=== PATIENT | female | born 1940 | race Caucasian/White ===

== ENCOUNTER 2025-05-26 14:13 | Inpatient (IN) ==
--- NOTE | 2025-05-26 14:38 | Emergency Department Note ---
History of Present Illness General Chief complaint: Infection Stated complaint: SEVERE INFECTED LT FOOT Time Seen by Provider: 05/26/25 14:19 History of Present Illness Maximum Pain Intensity: 7 This is an 84-year-old female that presents to the emergency department via private vehicle with complaints of "left foot/ankle infection". The patient notes that she began with redness to the left foot a few weeks ago. Since then has developed an ulceration to the left medial ankle and dorsal aspect of the left second toe. No trauma. No injury. She notes she did bump the left fifth toe against an object but that did not cause the other findings. She denies any fevers, chills, nausea or vomiting. She does not feel ill. She has neuropathy at baseline she notes in the lower extremities. She notes history of diabetes. She is not currently on antibiotics. Home Medications Medication Instructions Recorded Confirmed Type aspirin 81 mg tablet,delayed 81 mg PO DAILY 05/26/25 05/26/25 History release atenolol 100 mg tablet 100 mg PO DAILY 05/26/25 05/26/25 History atorvastatin 40 mg tablet 40 mg PO HS 05/26/25 05/26/25 History benazepril 40 mg tablet 40 mg PO DAILY 05/26/25 05/26/25 History cholestyramine (with sugar) 4 gram 1 ea PO BID 05/26/25 05/26/25 History powder for susp in a packet glimepiride 4 mg tablet 4 mg PO DAILYBB 05/26/25 05/26/25 History hydrochlorothiazide 25 mg tablet 25 mg PO DAILY 05/26/25 05/26/25 History levothyroxine 75 mcg tablet 75 mcg PO DAILYBB 05/26/25 05/26/25 History metformin 500 mg tablet,extended 1,000 mg PO BID 05/26/25 05/26/25 History release 24 hr multivitamin 1 tab PO DAILY 05/26/25 05/26/25 History vit C 250 mg-vit E 90 mg-zinc 40 1 tab PO BID 05/26/25 05/26/25 History mg-copper 1 [id number] capsule (PreserVision AREDS-2) Allergies Allergy/AdvReac Type Severity Reaction Status Date / Time No Known Allergies Allergy Unknown Verified 05/26/25 16:00 Past Med/Surg History Problem List (Updated 05/26/25 @ 17:12 by Ankit Araiza PA-C) Cellulitis of left lower extremity (Acute) Medical History (Updated 05/26/25 @ 17:12 by Ankit Araiza PA-C) Hypothyroidism Mitral valve stenosis Lumbar stenosis with neurogenic claudication Diabetic retinopathy Diabetic neuropathy Primary hyperparathyroidism T2DM (type 2 diabetes mellitus) HLD (hyperlipidemia) HTN (hypertension) Surgical History (Updated 05/26/25 @ 16:37 by Adela Santamaria PA-C) Hx of tonsillectomy Hx of appendectomy Hx of parathyroidectomy R superior History of partial colectomy R hemicolectomy with ileocolic anastomosis Hx of spinal fusion Hx of endoscopic retrograde cholangiopancreatography Hx of cataract extraction Hx of cholecystectomy 04/2024 lap converted to open 2/2 serosal tear of stomach Family History (Updated 05/26/25 @ 16:39 by Adela Santamaria PA-C) Mother Colorectal cancer Diabetes Father Colorectal cancer Sister Cancer lymphoma Sister Myocardial infarction Sister Rheumatoid arthritis Social History Smoking Status: Former smoker Preferred Language: [place] Feels Safe at Home: Yes Review of Systems A total of 10 systems reviewed and were otherwise negative Physical Exam Vital Signs Vital Signs - 24 hr 05/26/25 14:15 05/26/25 14:33 05/26/25 14:33 Temperature 36.6 C Temperature Source Oral Pulse Rate 66 64 Pulse Rate [Right Finger] 60 Pulse Rhythm [Right Finger] Regular Pulse Strength [Right Finger] Normal Respiratory Rate 18 17 Respiratory Effort / Characteristics Non-Labored Spontaneous Non-Labored Respiratory Depth Normal Normal Respiratory Pattern Regular Regular Blood Pressure 189/74 H Blood Pressure [Right Arm] 158/65 H Blood Pressure Mean 112 Blood Pressure Mean [Right Arm] 96 Blood Pressure Position [Right Arm] Lying Pulse Oximetry 97 100 Oxygen Delivery Method Room Air Room Air Sepsis Recent Fever Within 48 Hours No Sepsis New/Unexplained Change in Mental Status N/A Sepsis Action Taken by Nursing No Action Required 05/26/25 16:00 Temperature Temperature Source Pulse Rate Pulse Rate [Right Finger] 58 L Pulse Rhythm [Right Finger] Pulse Strength [Right Finger] Respiratory Rate 14 Respiratory Effort / Characteristics Respiratory Depth Respiratory Pattern Blood Pressure Blood Pressure [Right Arm] 145/85 H Blood Pressure Mean Blood Pressure Mean [Right Arm] 105 Blood Pressure Position [Right Arm] Pulse Oximetry 97 Oxygen Delivery Method Room Air Sepsis Recent Fever Within 48 Hours Sepsis New/Unexplained Change in Mental Status Sepsis Action Taken by Nursing VITAL SIGNS - Vital signs and nursing notes were reviewed. Stable and afebrile. GENERAL -84-year-old female appearing her stated age who is in no acute distress. Communicates well with provider and answers questions appropriately. SKIN -diffuse circumferential erythema and edema to the left foot and left ankle region, more pronounced on the medial aspect. Small subcentimeter ulceration to the left medial ankle and left dorsal second toe. Small amount of yellowish purulence at the left medial ankle joint at the ulceration site. No lymphangitic streaking. HEAD - NC/AT. EYES - Sclera anicteric. NECK - No nuchal rigidity. LUNGS - CTA CARDIAC - RRR EXTREMITIES - No clubbing or peripheral cyanosis. Skin as above. Left lower extremity with erythema and edema as described above. Left dorsalis pedis pulse within normal limits. Cap refill within normal limits. Calf is soft and nontender. No crepitus. +5/5 strength noted in UE/LE bilaterally. NEUROLOGIC - Cranial nerves II through XII grossly intact. Decree sensation of the left foot which the patient notes is chronic PSYCH -alert, oriented and pleasant on exam Course Administered Medications Vancomycin HCl 1,250 mg/ (Sodium Chloride) 525 mls @ 200 mls/hr IV NOW ONE Stop: 05/26/25 18:12 Last Admin: 05/26/25 16:13 Dose: 200 mls/hr Documented By: ZHENG Discontinued Medications Cefepime HCl (Maxipime 2000mg) 2,000 mg in 20 mls @ 5 mls/min IV NOW STA; Protocol Stop: 05/26/25 14:36 Last Admin: 05/26/25 15:07 Dose: 5 mls/min Documented By: CHRISTIAN Metronidazole (Flagyl) 500 mg in 100 mls @ 100 mls/hr IV NOW STA; Protocol Stop: 05/26/25 15:32 Last Admin: 05/26/25 15:07 Dose: 100 mls/hr Documented By: CHRISTIAN Medical Decision Making Laboratory Data 05/26/25 14:32 05/26/25 14:32 Lab Results 05/26/25 05/26/25 Range/Units 14:32 16:35 WBC 5.82 (4.8-10.8) K/ul RBC 2.73 L (4.20-5.40) M/uL Hgb 9.6 L (12.0-16.0) g/dl Hct 29.2 L (37.0-47.0) % MCV 107.0 H (80.0-100.0) fL MCH 35.2 H (25.0-34.0) pg MCHC 32.9 (32.0-36.0) g/dL RDW Std Deviation 59.8 H (36.4-46.3) fL RDW Coeff of Lynda 15.5 H (11.5-14.5) % Plt Count 253 (130-400) K/uL MPV 10.3 (9.4-12.4) fL Neutrophils % (Manual) 14 % Lymphocytes % (Manual) 18 % Monocytes % (Manual) 7 % Eosinophils % (Manual) 2 % Neutrophils # (Manual) 0.81 L (1.40-6.50) K/uL Total Absolute Neuts 0.81 L* (1.4-6.5) K/uL Lymphocytes # (Manual) 1.05 L (1.2-3.4) K/uL Total Abs Lymphocytes 4.48 H (1.2-3.4) K/uL Monocytes # (Manual) 0.41 (0.11-0.59) K/uL Eosinophils # (Manual) 0.12 (0-0.50) K/uL Large Granular Lymphs 59 % # Lrg Granular Lymphs 3.43 K/uL RBC Morphology Unremarkable Sodium 141 (136-145) mmol/L Potassium 3.8 (3.5-5.1) mmol/L Chloride 107 (98-107) mmol/L Carbon Dioxide 25 (21-32) mmol/L Anion Gap 9 (3-11) BUN 28 H (6-23) mg/dl Creatinine 0.84 (0.6-1.2) mg/dl Est Cr Clr Drug Dosing 48.5 ml/min eGFR 68.48 BUN/Creatinine Ratio 33.3 H (10-20) Glucose 190 H (70-99(Fasting)) mg/dl Lactate 1.5 (0.4-2.0) mmol/L Calcium 10.7 H (8.6-10.3) mg/dl Ionized Calcium 1.44 H (1.12-1.32) mmol/L Iron 98 (35-150) mcg/dl TIBC 336 (250-450) mcg/dl Transferrin 240 (200-360) mg/dl Transferrin % Sat 29 (15-50) % Total Bilirubin 0.6 (0.2-1.0) mg/dl AST 13 (13-39) U/L ALT 16 (7-52) U/L Alkaline Phosphatase 78 (34-104) U/L C-Reactive Protein < 0.50 (0-0.5) mg/dl Total Protein 7.0 (6.0-8.3) gm/dl Albumin 4.5 (3.4-5.0) gm/dl Globulin 2.5 (2.5-4.0) gm/dl Albumin/Globulin Ratio 1.8 (0.9-2) Procalcitonin 0.02 (0-0.5) ng/ml Imaging Data Radiologist's Impression: Foot X-Ray 05/26/25 14:29 Study: Left ankle and left foot 3 views History: Pain Comparison: None Findings: There is no acute fracture or dislocation. Alignment is anatomic. Joint spaces are well maintained. Swelling and mild soft tissue irregularity about the medial aspect of the ankle compatible with known ulcer. Bone mineralization is decreased. Impression: No acute bony abnormality Electronically signed by Ilia Ortega 05-26-2025 4:35 PM Ankle X-Ray 05/26/25 14:34 Study: Left ankle and left foot 3 views History: Pain Comparison: None Findings: There is no acute fracture or dislocation. Alignment is anatomic. Joint spaces are well maintained. Swelling and mild soft tissue irregularity about the medial aspect of the ankle compatible with known ulcer. Bone mineralization is decreased. Impression: No acute bony abnormality Electronically signed by Ilia Ortega 05-26-2025 4:35 PM MDM Narrative Patient was seen and evaluated as above in room B11. Review was performed of triage nursing notes and vital signs. After obtaining a thorough history and physical examination the above work up was performed. Patient presents to us today for evaluation of ongoing left foot and ankle erythema and edema. There are 2 ulcerative sites noted, 1 of which is at the left medial ankle and the second is on the left dorsal toe. This is concerning for infection. Options of care were discussed with the patient. IV access was established. Labs were drawn. I did order broad-spectrum antibiotic coverage to include IV cefepime, IV metronidazole and IV vancomycin for this patient noting comorbidities and findings today on exam/history. Labs reveal no leukocytosis. there is anemia with hemoglobin at 9.6. There is total absolute neutrophils low at 0.81. Metabolic panel reveals mild ovation of BUN at 28, creatinine of 0.84. Hyperglycemia 190. Hypercalcemia 10.7, similar to previous. Lactate and procalcitonin are normal making sepsis less likely. Left ankle and foot x-rays were reviewed as well as the radiology reports as above. I agree with the findings. No acute findings. I do believe that further evaluation and management in the inpatient setting is warranted. Blood culture pending and wound culture pending. Case discussed with the hospitalist service. Please refer to further documentation regarding her stay. In the evaluation and treatment of this patient the following differential diagnoses were entertained: Necrotizing fasciitis, cellulitis, abscess, osteomyelitis, among others Impression & Plan Cellulitis of left lower extremity Discharge Plan Visit Data Chief Complaint: Infection Stated Complaint: SEVERE INFECTED LT FOOT ED Provider: Andi Dalal ED Midlevel Provider: Ankit Araiza Discharge Problem: Cellulitis of left lower extremity Patient Disposition: Admitted As Inpatient Condition: Good Forms Stand Alone Forms: [facility] [employer] Prescriptions Prescriptions: No Action multivitamin [Daily Multivitamin] Tablet 1 tab PO DAILY atorvastatin 40 mg tablet 40 mg PO HS atenolol 100 mg tablet 100 mg PO DAILY aspirin 81 mg Tablet,Delayed Release (Dr/Ec) 81 mg PO DAILY levothyroxine 75 mcg tablet 75 mcg PO DAILYBB glimepiride 4 mg tablet 4 mg PO DAILYBB hydrochlorothiazide 25 mg tablet 25 mg PO DAILY benazepril 40 mg tablet 40 mg PO DAILY metformin 500 mg tablet extended release 24 hr 1,000 mg PO BID cholestyramine (with sugar) 4 gram powder in packet 1 ea PO BID Rx Instructions: PER PT "NEVER STARTED, WAS SICK WHEN GIVEN THE SCRIPT, JUST NEVER STARTED". PreserVision AREDS-2 250-90-40-1 mg Capsule 1 tab PO BID Referrals Referrals: Holly Spence DO [Primary Care Provider] -
[2025-05-26 15:05] LABS: Hematocrit (blood only) 29.2 % (37.0-47.0); Hemoglobin 9.6 g/dl (12.0-16.0); Mean Corpuscular Hemoglobin 35.2 pg (25.0-34.0); Mean Corpuscular Volume 107.0 fL (80.0-100.0); Platelet Count 253 K/uL (130-400); RDW Standard Deviation 59.8 fL (36.4-46.3); Red Blood Count 2.73 M/uL (4.20-5.40); White Blood Count 5.82 K/ul (4.8-10.8)
[2025-05-26] MEDS: CEFEPIME 2000MG 2,000 MG/20 ML SYR IV STA (15:07)
[2025-05-26] MEDS: metroNIDAZOLE 500 MG/100 ML BAG IV STA (15:07)
[2025-05-26 15:25] LABS: Alanine Aminotransferase 16 U/L (7-52); Albumin Globulin Ratio 1.8 (0.9-2); Alkaline Phosphatase 78 U/L (34-104); Anion Gap 9 (3-11); Bilirubin,Total 0.6 mg/dl (0.2-1.0); Blood Urea Nitrogen 28 mg/dl (6-23); Calcium 10.7 mg/dl (8.6-10.3); Carbon Dioxide 25 mmol/L (21-32); Chloride 107 mmol/L (98-107); Creatinine Clr Calc Pharmacy 48.5 ml/min; Globulin 2.5 gm/dl (2.5-4.0); Glucose 190 mg/dl (70-99(Fasting)); Potassium 3.8 mmol/L (3.5-5.1); Sodium 141 mmol/L (136-145); Total Protein 7.0 gm/dl (6.0-8.3)
[2025-05-26] MEDS ORDERED: VANCOMYCIN CONSULT ACTIVE PRN (15:35)
[2025-05-26 15:45] LABS: ALC (manual) 4.48 K/uL (1.2-3.4); ANC (manual) 0.81 K/uL (1.4-6.5); Large Granular Lymph # (manua 3.43 K/uL; Large Granular Lymph % (manual) 59 %; RBC Morphology Unremarkable
--- NOTE | 2025-05-26 16:01 | History & Physical Report ---
Date of Service May 26, 2025 Assessment & Plan (1) Cellulitis of left lower extremity: (2) T2DM (type 2 diabetes mellitus): (3) Diabetic neuropathy: (4) HTN (hypertension): (5) Primary hyperparathyroidism: (6) HLD (hyperlipidemia): (7) Anemia: (8) Neutropenia: Plan This is an 84-year-old female with significant past medical history of T2DM, diabetic peripheral neuropathy, HTN, HLD, hypothyroidism, primary hyperparathyroidism, diabetic nonproliferative retinopathy, mild mitral valve stenosis, lumbar spinal stenosis who presents to ED secondary to multiple non healing L foot wounds with associated redness. 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 Medrano - spoke to provider at bedside, likely cellulitis, no surgical debridement necessary, highly suspicious of charcot arthropathy consult wound nurse for treatment/follow up MRSA swab if negative no indication for mrsa coverage given low risk obtain Vascular Arterial duplex #Anemia, chronic Pt has been anemia since March of 2024 per epic review, lows of 8 after acute gallbladder surgery currently 9.6 and 29.2 anemia panel including iron profile, b12, folate unremarkable obtain retic ct, haptoglobin, tsh/t4, LDH w/ am labs peripheral smear pending will likely need hematology referral as outpt, pt reports chronic fatigue, denies s/sx of bleeding, last c scope was 4 years ago, pt continues to receive them due to strong family hx #Neutropenia pt with absolute neutrophil count low, present since 05/2024 post gallbladder surgery obtain peripheral smear pt likely to need hematology referral as outpt #T2DM with neuropathy, retinopathy controlled for age, last a1c 7.7 in January, will update a1c in a.m. lantus/novolog per protocol hold metformin, glimepiride #HTN chronic, stable continue atenolol and benazpril hold HCTZ for now given hypercalc and known primary hyperparathyroidism pt previously follow endo in [place] who recommended discontinuing hctz, pt reports re suming it due to some lower ext edema #Hypercalcemia #Primary Hyperparathyroidism with hx of R superior parathyroidectomy in 2007 had follow [facility] at [place], last seen in 2019, recommend re stablishing for monitoring of calcium levels avoid calcium supplements which can also be found in daily MVI #Chronic diarrhea: felt 2/2 hx of R hemicolectomy as well as last years gallbladder surgery, bowels always loose, was recently prescribe cholestyramine but didn't start yet #DVT ppx: SQ Lovenox FULL CODE PCP: Holly Spence DO Dispo: admit to med tele, likely can downgrade to medical in a.m. Pt was seen and examined in collaboration with Dr. Liu, please see addendum I spent a total of 76 minutes coordinating, documenting and providing care for this patient excluding time spent in the performance of separately billed services or time spent by another provider/QHP. History of Present Illness Chief Complaint: L foot wounds Primary Care Provider: Holly Spence DO This is an 84-year-old female with significant past medical history of T2DM, diabetic peripheral neuropathy, HTN, HLD, hypothyroidism, primary hyperparathyroidism, diabetic nonproliferative retinopathy, mild mitral valve stenosis, lumbar spinal stenosis who presents to ED secondary to L foot wounds for several weeks. History obtained from patient and at bedside. Patient reports having multiple wounds To her left foot, some which have healed, others which remain present. She reports having significant pain to her left foot and leg to the point she is unable to sleep at night. She does have known underlying neuropathy for which she has tried gabapentin before. She does not like the way most medications make her feel and therefore she tries to avoid it. She has been using [id number] Tylenol with minimal relief. Over the last several days she has noticed increased redness to her bilateral legs and feet, left greater than right. Her son is in sports medicine and encouraged her to be seen in the ED. In ED patient remained hemodynamically stable. She has multiple wounds to left ankle and digits approximately 4 in different stages of healing. She remained hemodynamically stable without signs of sepsis. She is neutropenic with an absolute neutrophil count of 0.8 1 K/uL. she remains anemic with a hemoglobin and hematocrit of 9.6 and 29.2. She does have mildly elevated calcium at 10.7 with an ionized calcium of 1.44. She had bilateral ankle x-rays which were normal. Blood and wound cultures were obtained. Foot and ankle x- rays were obtained and unremarkable. In ED she received IV Vanco, Flagyl and cefepime. Of significant pt had prolonged stay at [facility] May of 2024 2/2 acute cholecystitis with c/f choledocholithiasis. She underwent an ERCP 05/08/24 and required a lap converted to open cholecystectomy on 05/10 with oversewing of a serosal tear of the stomach. She had post op complication with ileus. Allergies Allergy/AdvReac Type Severity Reaction Status Date / Time No Known Allergies Allergy Unknown Verified 05/26/25 16:00 Home Medications Medication Instructions Recorded Confirmed Type aspirin 81 mg tablet,delayed 81 mg PO DAILY 05/26/25 05/26/25 History release atenolol 100 mg tablet 100 mg PO DAILY 05/26/25 05/26/25 History atorvastatin 40 mg tablet 40 mg PO HS 05/26/25 05/26/25 History benazepril 40 mg tablet 40 mg PO DAILY 05/26/25 05/26/25 History cholestyramine (with sugar) 4 gram 1 ea PO BID 05/26/25 05/26/25 History powder for susp in a packet glimepiride 4 mg tablet 4 mg PO DAILYBB 05/26/25 05/26/25 History hydrochlorothiazide 25 mg tablet 25 mg PO DAILY 05/26/25 05/26/25 History levothyroxine 75 mcg tablet 75 mcg PO DAILYBB 05/26/25 05/26/25 History metformin 500 mg tablet,extended 1,000 mg PO BID 05/26/25 05/26/25 History release 24 hr multivitamin 1 tab PO DAILY 05/26/25 05/26/25 History vit C 250 mg-vit E 90 mg-zinc 40 1 tab PO BID 05/26/25 05/26/25 History mg-copper 1 [id number] capsule (PreserVision AREDS-2) Past Med/Surg History Problem List (Updated 05/26/25 @ 18:00 by Kamari Medrano DO) Charcot arthropathy Neutropenia Anemia Cellulitis of left lower extremity (Acute) Medical History (Updated 05/26/25 @ 18:00 by Kamari Medrano DO) Hypothyroidism Mitral valve stenosis Lumbar stenosis with neurogenic claudication Diabetic retinopathy Diabetic neuropathy Primary hyperparathyroidism T2DM (type 2 diabetes mellitus) HLD (hyperlipidemia) HTN (hypertension) Surgical History (Updated 05/26/25 @ 16:37 by Adela Santamaria PA-C) Hx of tonsillectomy Hx of appendectomy Hx of parathyroidectomy R superior History of partial colectomy R hemicolectomy with ileocolic anastomosis Hx of spinal fusion Hx of endoscopic retrograde cholangiopancreatography Hx of cataract extraction Hx of cholecystectomy 04/2024 lap converted to open 2/2 serosal tear of stomach Family History (Updated 05/26/25 @ 16:39 by Adela Santamaria PA-C) Mother Colorectal cancer Diabetes Father Colorectal cancer Sister Cancer lymphoma Sister Myocardial infarction Sister Rheumatoid arthritis Social History Smoking Status: Former smoker Tobacco Type: Cigarettes Second Hand Exposure: No; Do You Dip or Chew Tobacco: No; Tobacco Cessation Education Requested by Patient: No Hx Alcohol Use: No Hx Substance Use: No Preferred Language: Djiboutian Communication Ability: Effective Quality System Manager Required: No Beliefs That Will Affect Care: None Current Living Situation: Spouse Current Living Situation Comment: lives at home with Other Information That Helps Us Care for You: No Feels Safe at Home: Yes Safety Concerns: Feels Safe At This Time Assistive Devices: Cane and Glasses Assistive Devices Comment: cane/glasses Review of Systems Review of Systems: All systems reviewed & are unremarkable except as noted in HPI & below Physical Exam Physical Exam: constitutional: WD/WN, vitals as above, NAD, sitting up in bed, pleasant, conversing easily Head: Normocephalic, Atraumatic Eyes: conjunctivae normal, anicteric sclerae ENMT: external ear and nose normal, oropharynx normal Neck: trachea midline, no thyromegaly normal visual inspection Respiratory: normal respiratory effort, lungs clear to auscultation, no wheeze, rales, rhonchi. Normal insp/exp effort, no accessory muscle use Cardiovascular: RRR, no murmur, b/l diminished lower ext DP and PT Pulses, +1, LLE erythematous, not warm, erythema resolves with significant leg elevation, evidence of multiple ulcers, L medial ankle/,L3rd distal toe, developing blister to lateral 4th toe, blood bulla to distal 5th toe and lateral ankle wound. Vessels: no JVD or carotid bruit Chest: normal inspection of chest Abdomen: normal bowel sounds, soft, nontender, no hepatosplenomegaly Musculoskeletal: no cyanosis or clubbing, extremities motor strength 5/5 Skin: no rashes, warm and dry normal turgor Neurologic: PERRL, EOMI, accommodation nl, no face palsy, no dysarthria CN's II-XI intact bilaterally and moves all extremities Psychiatric: A+Ox3, euthymic affect Results & Data Results & Data Vital Signs (Past 12 Hours) Vital Signs Temp Pulse Pulse Resp BP BP Pulse Ox 05/26/25 14:33 60 17 158/65 H 100 05/26/25 14:33 64 05/26/25 14:15 36.6 C 66 18 189/74 H 97 O2 Del Method 05/26/25 14:33 Room Air 05/26/25 14:33 05/26/25 14:15 Room Air Laboratory Results I have independently reviewed and interpreted patient's admitting labs including CBC, CMP, lactic acid, crp,procal Diagnostic Findings Foot X-Ray 05/26/25 14:29 Study: Left ankle and left foot 3 views History: Pain Comparison: None Findings: There is no acute fracture or dislocation. Alignment is anatomic. Joint spaces are well maintained. Swelling and mild soft tissue irregularity about the medial aspect of the ankle compatible with known ulcer. Bone mineralization is decreased. Impression: No acute bony abnormality Electronically signed by Ilia Ortega 05-26-2025 4:35 PM Ankle X-Ray 05/26/25 14:34 Study: Left ankle and left foot 3 views History: Pain Comparison: None Findings: There is no acute fracture or dislocation. Alignment is anatomic. Joint spaces are well maintained. Swelling and mild soft tissue irregularity about the medial aspect of the ankle compatible with known ulcer. Bone mineralization is decreased. Impression: No acute bony abnormality Electronically signed by Ilia Ortega 05-26-2025 4:35 PM Medications Administered Medication List Vancomycin HCl 1,250 mg/ (Sodium Chloride) 525 mls @ 200 mls/hr IV NOW ONE Stop: 05/26/25 18:12 Last Admin: 05/26/25 16:13 Dose: 200 mls/hr Documented By: ZHENG Discontinued Medications Cefepime HCl (Maxipime 2000mg) 2,000 mg in 20 mls @ 5 mls/min IV NOW STA; Protocol Stop: 05/26/25 14:36 Last Admin: 05/26/25 15:07 Dose: 5 mls/min Documented By: CHRISTIAN Metronidazole (Flagyl) 500 mg in 100 mls @ 100 mls/hr IV NOW STA; Protocol Stop: 05/26/25 15:32 Last Admin: 05/26/25 15:07 Dose: 100 mls/hr Documented By: CHRISTIAN ECG Additional Comments: I have independently reviewed and interpreted patient's admitting EKG which revealed: COVID-19 Results Results COVID-19 Adm Lab Results: RBC 2.25 M/uL (4.20-5.40) L 05/27/25 WBC 5.03 K/ul (4.8-10.8) 05/27/25 Hgb 8.0 g/dl (12.0-16.0) L 05/27/25 Hct 24.4 % (37.0-47.0) L 05/27/25 Plt Count 209 K/uL (130-400) 05/27/25 ANC 0.80 K/uL (1.4-6.5) L* 05/27/25 ALC 3.92 K/uL (1.2-3.4) H 05/27/25 Neutrophils % (Manual) 16 % 05/27/25 Lymphocytes % (Manual) 38 % 05/27/25 Large Granular Lymphocytes 40 % 05/27/25 Monocytes % (Manual) 4 % 05/27/25 Eosinophils % (Manual) 1 % 05/27/25 Basophils % (Manual) 1 % 05/27/25 Neutrophils # (Manual) 0.80 K/uL (1.40-6.50) L 05/27/25 Lymphocytes # (Manual) 1.91 K/uL (1.2-3.4) 05/27/25 Absolute Large Granular Lymphocytes 2.01 K/uL 05/14 03/08 Monocytes # (Manual) 0.20 K/uL (0.11-0.59) 05/27/25 Eosinophils # (Manual) 0.05 K/uL (0-0.50) 05/27/25 Basophils # (Manual) 0.05 K/uL (0-0.2) 05/27/25 Smudge Cells Present 05/27/25 Red Blood Cell Morphology Unremarkable 05/26/25 Polychromasia 1+ 05/27/25 Na 140 mmol/L (136-145) 05/27/25 K 3.8 mmol/L (3.5-5.1) 05/27/25 Cl 110 mmol/L (98-107) H 05/27/25 CO2 26 mmol/L (21-32) 05/27/25 Anion Gap 4 (3-11) 05/27/25 BUN 23 mg/dl (6-23) 05/27/25 Creatinine 0.88 mg/dl (0.6-1.2) 05/27/25 BUN/Creatinine Ratio 26.1 (10-20) H 05/27/25 Glucose Level 132 mg/dl (70-99(Fasting)) H 05/27/25 Ca 9.3 mg/dl (8.6-10.3) 05/27/25 Total Bilirubin 0.4 mg/dl (0.2-1.0) 05/27/25 AST/SGOT 13 U/L (13-39) 05/27/25 ALT/SGPT 13 U/L (7-52) 05/27/25 Alkaline Phosphatase 58 U/L (34-104) 05/27/25 Total Protein 5.7 gm/dl (6.0-8.3) L 05/27/25 Albumin 3.5 gm/dl (3.4-5.0) 05/27/25 Globulin 2.2 gm/dl (2.5-4.0) L 05/27/25 Albumin/Globulin Ratio 1.6 (0.9-2) 05/27/25 LDH 129 U/L (86-244) 05/27/25 CRP < 0.50 mg/dl (0-0.5) 05/26/25 Procalcitonin 0.02 ng/ml (0-0.5) 05/26/25 Ferritin 48.6 ng/ml (8-388) 05/26/25 Code Status & VTE Plan Code Status FULL CODE Supervising Physician Co-Signing Physician Notes delayed entry date of service noted above Attending Addendum: Case reviewed with the advanced practitioner. I have personally performed a history and physical examination on the patient. I have reviewed the advanced practitioner's documentation on the date of service referenced in note, and I agree with, and take responsibility for the plan of care. please refer to her notes for full details patient seen and examined, records reviewed by myself as well diagnoses and plan of care as per advanced practitioner's notes I spent a total of 40 minutes coordinating, documenting, and providing care for this patient, excluding time spent in the performance of separately billed services or time spent by another provider/QHP. Kevin Liu MD
[2025-05-26] MEDS: VANCOMYCIN HCL 1,250 MG in SODIUM CHLORIDE 0.9% 500 ML IV ONE (16:13)
--- NOTE | 2025-05-26 16:36 | XRay Report ---
Study: Left ankle and left foot 3 views History: Pain Comparison: None Findings: There is no acute fracture or dislocation. Alignment is anatomic. Joint spaces are well maintained. Swelling and mild soft tissue irregularity about the medial aspect of the ankle compatible with known ulcer. Bone mineralization is decreased. Impression: No acute bony abnormality Electronically signed by Ilia Ortega 05-26-2025 4:35 PM
[2025-05-26 16:51] LABS: Iron 98 mcg/dl (35-150); Total Iron Binding Cap Calc 336 mcg/dl (250-450); Transferrin 240 mg/dl (200-360); Transferrin (FE) Percent Satur 29 % (15-50)
[2025-05-26 17:12] LABS: Ferritin 48.6 ng/ml (8-388)
[2025-05-26 17:29] LABS: Folate (Folic Acid),Ser orPlas > 22.30 ng/ml (>5.38)
[2025-05-26 17:30] LABS: Vitamin B12 533 pg/ml (180-914)
--- NOTE | 2025-05-26 18:04 | Orthopedic Consultation ---
Date of Consultation May 26, 2025 Assessment & Plan (1) Charcot arthropathy: (2) T2DM (type 2 diabetes mellitus): (3) HTN (hypertension): (4) HLD (hyperlipidemia): (5) Hypothyroidism: (6) Mitral valve stenosis: (7) Lumbar stenosis with neurogenic claudication: (8) Diabetic neuropathy: (9) Diabetic retinopathy: (10) Primary hyperparathyroidism: Plan this is an 84-year-old female who presents to the hospital for foot swelling and pain. She has multiple wounds on her feet that she has had for the last few weeks and they are approximately 4 of them all in different stages of healing. None of these wounds are larger than about 5 mm x 5 mm and do not have signific ant surrounding erythema and not have any drainage. I do long discussion with the patient and her regarding her current presentation. We discussed in great detail the differential diagnosis. While it it is certainly possible that 1 of these wounds is caused the cellulitis, given the fact that the patient's erythema of her foot entirely resolves with limb elevation, my suspicion is that she is actually experiencing the inflammatory phase of Charcot arthropathy. I had a long discussion with the patient and her regarding the nature of this diagnosis. Discussed in great detail the pathoanatomy, pathophysiology, treatment options. Diabetic Charcot neuropathy most often presents with normal radiographs and foot swelling and pain that is caused by neuro traumatic injuries to the small joints of the foot. The insensate joints of the foot are subjected to repetitive microtrauma and long-term, the body is unable to protect from these microtrauma's and this can lead to significant degeneration of the foot. Given the patient's decreased sensation, this is my primary suspicion. In general, shoewear modifications to include a accommodative insert can be very helpful, but often times the acute inflammatory or stage 0 of the phase self resolves. I did explain to the patient and her that if indeed this is Charcot neuropathy, the patient is at risk for future foot degenerative changes which may potentially increase her risk of wounds. It is very important that she continues to check her feet at all times and keep her blood sugar under the best control possible. The patient has been admitted with concerns for cellulitis and is receiving IV antibiotics. I think that a walking boot may be very helpful to her in alleviating some of her foot pain as well. I am happy to see her in the future on an as-needed basis as an outpatient. History of Present Illness Reason for Consultation: Left foot redness and wounds History of Present Illness This is an 84-year-old female with significant past medical history of T2DM, diabetic peripheral neuropathy, HTN, HLD, hypothyroidism, primary hyperparathyroidism, diabetic nonproliferative retinopathy, mild mitral valve stenosis, lumbar spinal stenosis who presents to ED secondary to L foot wounds for several weeks. History obtained from patient and at bedside. Patient reports having multiple wounds To her left foot, some which have healed, others which remain present. She reports having significant pain to her left foot and leg to the point she is unable to sleep at night. She does have known underlying neuropathy for which she has tried gabapentin before. She does not like the way most medications make her feel and therefore she tries to avoid it. She has been using [id number] Tylenol with minimal relief. Over the last several days she has noticed increased redness to her bilateral legs and feet, left greater than right. Her son is in sports medicine and encouraged her to be seen in the ED. Of significant pt had prolonged stay at [facility] May of 2024 2/2 acute cholecystitis with c/f choledocholithiasis. She underwent an ERCP 05/08/24 and required a lap converted to open cholecystectomy on 05/10 with oversewing of a serosal tear of the stomach. She had post op complication with ileus. Patient notes that none of her wounds have been draining anything. She notes that her foot does appear red. Allergies Allergy/AdvReac Type Severity Reaction Status Date / Time No Known Allergies Allergy Unknown Verified 05/26/25 16:00 Home Medications Medication Instructions Recorded Confirmed Type aspirin 81 mg tablet,delayed 81 mg PO DAILY 05/26/25 05/26/25 History release atenolol 100 mg tablet 100 mg PO DAILY 05/26/25 05/26/25 History atorvastatin 40 mg tablet 40 mg PO HS 05/26/25 05/26/25 History benazepril 40 mg tablet 40 mg PO DAILY 05/26/25 05/26/25 History cholestyramine (with sugar) 4 gram 1 ea PO BID 05/26/25 05/26/25 History powder for susp in a packet glimepiride 4 mg tablet 4 mg PO DAILYBB 05/26/25 05/26/25 History hydrochlorothiazide 25 mg tablet 25 mg PO DAILY 05/26/25 05/26/25 History levothyroxine 75 mcg tablet 75 mcg PO DAILYBB 05/26/25 05/26/25 History metformin 500 mg tablet,extended 1,000 mg PO BID 05/26/25 05/26/25 History release 24 hr multivitamin 1 tab PO DAILY 05/26/25 05/26/25 History vit C 250 mg-vit E 90 mg-zinc 40 1 tab PO BID 05/26/25 05/26/25 History mg-copper 1 [id number] capsule (PreserVision AREDS-2) Patient History Medical History (Updated 05/26/25 @ 18:00 by Kamari Medrano DO) Hypothyroidism Mitral valve stenosis Lumbar stenosis with neurogenic claudication Diabetic retinopathy Diabetic neuropathy Primary hyperparathyroidism T2DM (type 2 diabetes mellitus) HLD (hyperlipidemia) HTN (hypertension) Surgical History (Updated 05/26/25 @ 16:37 by Adela Santamaria PA-C) Hx of tonsillectomy Hx of appendectomy Hx of parathyroidectomy R superior History of partial colectomy R hemicolectomy with ileocolic anastomosis Hx of spinal fusion Hx of endoscopic retrograde cholangiopancreatography Hx of cataract extraction Hx of cholecystectomy 04/2024 lap converted to open 2/2 serosal tear of stomach Family History (Updated 05/26/25 @ 16:39 by Adela Santamaria PA-C) Mother Colorectal cancer Diabetes Father Colorectal cancer Sister Cancer lymphoma Sister Myocardial infarction Sister Rheumatoid arthritis Social History Smoking Status: Former smoker Preferred Language: Azeri Feels Safe at Home: Yes Review of Systems Review of Systems: Negative as otherwise stated above Physical Exam Physical Exam: on physical evaluation of the patient's left foot, she has multiple wounds to left ankle and digits - 4 of them in different stages of healing. none of these wounds are greater then 5 mm x 5 mm in size. None with purulence. None with significant surrounding erythema. Patient has diminished sensation in a stocking-like distribution which is at baseline. Patient has diffuse foot erythema that entirely alleviates with limb elevation. She is diffusely tender to palpation throughout her foot. I am unable to palpate her pulses, however her foot is warm and well-perfused. Results & Data Vital Signs (Past 12 Hours) Vital Signs Temp Pulse Pulse Resp BP BP Pulse Ox 05/26/25 16:00 58 L 14 145/85 H 97 05/26/25 14:33 60 17 158/65 H 100 05/26/25 14:33 64 05/26/25 14:15 36.6 C 66 18 189/74 H 97 O2 Del Method 05/26/25 16:00 Room Air 05/26/25 14:33 Room Air 05/26/25 14:33 05/26/25 14:15 Room Air Diagnostic Findings X-rays left foot and ankle obtained today were personally reviewed and interpreted. These demonstrate no acute osseous abnormalities.
[2025-05-26] MEDS ORDERED: CARBOHYDRATES FOR HYPOGLYCEMIA PO PRN (18:42)
[2025-05-26] MEDS ORDERED: GLUCOSE 10 TAB/TUBE PO PRN (18:42)
[2025-05-26] MEDS ORDERED: ONDANSETRON INJ 2 MG/ML 2 ML VIAL IV PRN (18:42)
[2025-05-26] MEDS ORDERED: GLUCAGON FOR INJ 1 MG VIAL SQ PRN (18:42)
[2025-05-26] MEDS ORDERED: GLUCOSE 40% GEL 15 GM TUBE PO PRN (18:42)
[2025-05-26] MEDS ORDERED: DEXTROSE 50% 50 ML SYRINGE IV PRN (18:42)
[2025-05-26] MEDS: SODIUM CHLORIDE 0.9% 1,000 ML IV SCH (18:44)
[2025-05-26] MEDS ORDERED: NON-FORMULARY MEDICATION (Vit C,E-Zn-Coppr-Lutein-Zeaxan [Preservision Areds-2] 250-90-40- PO SCH (21:00)
[2025-05-26] MEDS: LANTUS PER UNIT CHARGE SQ SCH (21:16)
[2025-05-26] MEDS: MELATONIN 3 MG TAB PO PRN (21:17)
[2025-05-26] MEDS: ENOXAPARIN INJ 40 MG/0.4 ML SYR SQ SCH (21:17)
[2025-05-26] MEDS: INSULIN ASPART PER UNIT CHARGE SC SCH (21:17)
[2025-05-26] MEDS: ATORVASTATIN 40 MG TAB PO SCH (21:18)
[2025-05-27] MEDS: CEFEPIME 2000MG 2,000 MG/20 ML SYR IV SCH (02:27)
[2025-05-27] MEDS: LEVOTHYROXINE SODIUM 75 MCG TABLET PO SCH (05:45)
[2025-05-27] MEDS: ACETAMINOPHEN 325 MG TAB PO PRN (05:50)
[2025-05-27 08:22] LABS: Hematocrit (blood only) 24.4 % (37.0-47.0); Hemoglobin 8.0 g/dl (12.0-16.0); Mean Corpuscular Hemoglobin 35.6 pg (25.0-34.0); Mean Corpuscular Volume 108.4 fL (80.0-100.0); Platelet Count 209 K/uL (130-400); RDW Standard Deviation 61.4 fL (36.4-46.3); Red Blood Count 2.25 M/uL (4.20-5.40); Reticulocytes # 0.060 10^6/uL (0.020-0.100); White Blood Count 5.03 K/ul (4.8-10.8)
[2025-05-27 08:43] LABS: Alanine Aminotransferase 13.0 U/L (7-52); Albumin Globulin Ratio 1.6 (0.9-2); Alkaline Phosphatase 58.0 U/L (34-104); Anion Gap 4.0 (3-11); Bilirubin,Total 0.4 mg/dl (0.2-1.0); Blood Urea Nitrogen 23.0 mg/dl (6-23); Calcium 9.3 mg/dl (8.6-10.3); Carbon Dioxide 26.0 mmol/L (21-32); Chloride 110.0 mmol/L (98-107); Creatinine Clr Calc Pharmacy 46.3 ml/min; Globulin 2.2 gm/dl (2.5-4.0); Glucose 132.0 mg/dl (70-99(Fasting)); Magnesium 1.4 mg/dl (1.7-2.4); Potassium 3.8 mmol/L (3.5-5.1); Sodium 140.0 mmol/L (136-145); Total Protein 5.7 gm/dl (6.0-8.3)
[2025-05-27] MEDS: ADVANCED PROBIOTIC 625 MG CAPSULE PO SCH (08:52)
[2025-05-27] MEDS: ASPIRIN 81 MG ECTAB PO SCH (08:52)
[2025-05-27] MEDS: ENALAPRIL MALEATE 10 MG TAB PO SCH (08:53)
[2025-05-27] MEDS: ATENOLOL 50 MG TABLET PO SCH (08:53)
[2025-05-27 08:57] LABS: Thyroid Stimulating Hormone 4.312 uIu/ml (0.300-4.500)
--- NOTE | 2025-05-27 09:02 | Orthopedic Progress Note ---
Date of Service May 27, 2025 Assessment & Plan (1) Charcot arthropathy: (2) T2DM (type 2 diabetes mellitus): (3) HTN (hypertension): (4) HLD (hyperlipidemia): (5) Hypothyroidism: (6) Mitral valve stenosis: (7) Lumbar stenosis with neurogenic claudication: (8) Diabetic neuropathy: (9) Diabetic retinopathy: (10) Primary hyperparathyroidism: Plan this is an 84-year-old female who presents to the hospital for foot swelling and pain. She has multiple wounds on her feet that she has had for the last few weeks and they are approximately 4 of them all in different stages of healing. None of these wounds are larger than about 5 mm x 5 mm and do not have significant surrounding erythema and not have any drainage. I do long discussion with the patient and her regarding her current presentation. We discussed in great detail the differential diagnosis. While it it is certainly possible that 1 of these wounds is caused the cellulitis, given the fact that the patient's erythema of her foot entirely resolves with limb elevation, my suspicion is that she is actually experiencing the inflammatory phase of Charcot arthropathy. I had a long discussion with the patient and her regarding the nature of this diagnosis. Discussed in great detail the pathoanatomy, pathophysiology, treatment options. Diabetic Charcot neuropathy most often presents with normal radiographs and foot swelling and pain that is caused by neuro traumatic injuries to the small joints of the foot. The insensate joints of the foot are subjected to repetitive microtrauma and long-term, the body is unable to protect from these microtrauma's and this can lead to significant degeneration of the foot. Given the patient's decreased sensation, this is my primary suspicion. In general, shoewear modifications to include a accommodative insert can be very helpful, but often times the acute inflammatory or stage 0 of the phase self resolves. I did explain to the patient and her that if indeed this is Charcot neuropathy, the patient is at risk for future foot degenerative changes which may potentially increase her risk of wounds. It is very important that she continues to check her feet at all times and keep her blood sugar under the best control possible. The patient has been admitted with concerns for cellulitis and is receiving IV antibiotics. Although the patient was found to be neutropenic and as such her lab markers may be difficult to interpret, considering she has been afebrile, her ESR and CRP are low, I do not suspect that she has a serious infection requiring operative management at this time. I think that a walking boot may be very helpful to her in alleviating some of her foot pain as well. I am happy to see her in the future on an as-needed basis as an outpatient. Admission and Anticipated Discharge Date Admission Date: May 26, 2025 Subjective Patient seen and evaluated this morning. Notes that her foot pain is similar to previous. Erythema unchanged. Overall feels well. Review of Systems Review of Systems: Negative as otherwise stated above Physical Exam Physical Exam: on physical evaluation of the patient's left foot, she has multiple wounds to left ankle and digits - 4 of them in different stages of healing. none of these wounds are greater then 5 mm x 5 mm in size. None with purulence. None with significant surrounding erythema. Patient has diminished sensation in a stocking-like distribution which is at baseline. Patient has diffuse foot erythema that entirely alleviates with limb elevation. She is diffusely tender to palpation throughout her foot. I am unable to palpate her pulses, however her foot is warm and well-perfused. Results & Data Vital Signs (Past 12 Hours) Vital Signs Temp Pulse Pulse Resp BP Pulse Ox O2 Del Method 05/27/25 08:16 36.8 C 59 L 20 119/57 L 98 Room Air 05/27/25 07:29 57 L 05/27/25 03:23 36.3 C L 67 20 144/56 H 96 Room Air 05/26/25 23:55 36.7 C 66 18 133/54 L 95 Room Air 05/26/25 22:01 68
[2025-05-27 09:15] LABS: Hemoglobin A1C 8.1 % (4.5-5.6)
[2025-05-27 09:29] LABS: ALC (manual) 3.92 K/uL (1.2-3.4); Large Granular Lymph # (manua 2.01 K/uL; Large Granular Lymph % (manual) 40 %; Polychromasia 1+; Smudge Cells Present
[2025-05-27 09:35] LABS: ANC (manual) 0.80 K/uL (1.4-6.5)
--- NOTE | 2025-05-27 12:50 | Ultrasound Report ---
EXAM: US arterial duplex LE BI CLINICAL HISTORY: foot wounds, erythema. TECHNIQUE: Ultrasound examination of the bilateral lower extremities arteries with ankle brachial indices was performed in real time and duplex. One or more of the following were performed- spectral analysis, waveform analysis, and pulsed Doppler. COMPARISON: None. FINDINGS: Vessel Flow Pattern Right Peak Velocity Right (cm/sec) Flow Pattern Left Peak Velocity Left (cm/sec) Common Femoral Artery (CHARTER DRIVER) Biphasic 140 Biphasic 80.2 Deep Femoral Artery (DPA) Biphasic 65.8 Biphasic 41.2 Superficial Femoral Artery (SFA) Biphasic Proximal:97.1 Mid: 78.6 Distal: 102.4 Biphasic Proximal:64 Mid: 47.2 Distal: 52.7 Popliteal Artery (POP A) Biphasic Proximal:180 Distal: 226.3 Monophasic 39.3 Anterior Tibial Artery (SECOND GRADE TEACHER) Biphasic Proximal:61 Mid: 45.2 Distal: 54.9 Monophasic Proximal:27 Mid: 68.8 Distal: 27.1 Posterior Tibial Artery (SECOND GRADE TEACHER) Biphasic Proximal:60.5 Mid: 54.3 Distal: 76 Monophasic Proximal:64.2 Mid: 28.5 Distal: 25.1 Peroneal Artery Monophasic Proximal:55.2 Mid: 41.8 Distal: 51.5 Monophasic Mid: 15.6 Distal: 16.7 Dorsalis Pedis Artery (DPA) Monophasic 21 Monophasic 42.7 Ankle brachial indiex on left side measuring 0.73. TBI measures 0.61 on right and 0.71 on left side. Diffuse atherosclerosis changes with increased intima/media thickness and wall calcifications involving both lower limb arteries. Biphasic waveform pattern observed throughout both common ,superficial , deep femoral , right popliteal , right anterior and posterior tibial arteries. Monophasic waveform pattern observed throughout, left popliteal , left anterior ,posterior tibial , both peroneal and both dorsalis pedis arteries. Mild stenosis at right popliteal artery with high PSV reaching 80 and 226.3cm/sec at its proximal and distal parts respectively. The peak systolic velocities of other arteries are within normal limit bilaterally. Collateral Circulation: No significant collateral circulation . IMPRESSION: 1. Diffuse atherosclerosis changes of both lower limb arteries, more evident at popliteal and infrapopliteal arteries associated with bilateral mild chronic ischemia more on the right side. 2. Mild stenosis at right politeal artery. 3. Low TBI on right side and low SETH on left side 4. Clinical correlation and further evaluation with CT Angiography are advised. Electronically signed by Juan Merchant 05-27-2025 12:50 PM
--- NOTE | 2025-05-27 14:20 | Hospitalist Progress Note ---
Date of Service May 27, 2025 Assessment & Plan (1) Cellulitis of left lower extremity: (2) T2DM (type 2 diabetes mellitus): (3) Diabetic neuropathy: (4) HTN (hypertension): (5) Primary hyperparathyroidism: (6) HLD (hyperlipidemia): (7) Anemia: (8) Neutropenia: Plan In summary, 84-year-old female with significant past medical history of T2DM, diabetic peripheral neuropathy, HTN, HLD, hypothyroidism, primary hyperparathyroidism, diabetic nonproliferative retinopathy, mild mitral valve stenosis, lumbar spinal stenosis who presents to ED secondary to multiple non healing L foot wounds with associated redness. #LLE Cellulitis 2/2 nonhealing L diabetic foot wounds, POA #Diabetic neuropathy, possible charcot arthropathy per ortho Cont on med tele Continue IV antibiotics with cefepime 2g q8for now Consulted podiatry Dr. Medrano -likely cellulitis, no surgical debridement necessary, suspicion for the inflammatory phase of Charcot arthropathy. Consulted wound nurse for treatment/follow up MRSA swab if negative no indication for mrsa coverage given low risk Vascular Arterial duplex reviewed: Diffuse atherosclerosis changes of both lower limb arteries, more evident at popliteal and infrapopliteal arteries associated with bilateral mild chronic ischemia more on the right side. Mild stenosis at right politeal artery. Low TBI on right side and low SETH on left side Anemia, chronic Pt has been anemia since March of 2024 per [facility] review, lows of 8 after acute gallbladder surgery currently Hgb 8.0, will trend anemia panel including iron profile, b12, folate unremarkable pending retic ct, haptoglobin, tsh/t4, LDH w/ am labs peripheral smear pending will likely need hematology referral as outpt, pt reports chronic fatigue, denies s/sx of bleeding, last c scope was 4 years ago, pt continues to receive them due to strong family hx #Neutropenia pt with absolute neutrophil count low, present since 05/2024 post gallbladder surgery obtain peripheral smear pt likely to need hematology referral as outpt #T2DM with neuropathy, retinopathy controlled for age, last a1c 7.7 in January, 8.1 this am. lantus/novolog per protocol hold metformin, glimepiride #HTN chronic, stable continue atenolol and benazpril hold HCTZ for now given hypercalc and known primary hyperparathyroidism pt previously follow endo in [place] who recommended discontinuing hctz, pt reports re suming it due to some lower ext edema #Hypercalcemia #Primary Hyperparathyroidism with hx of R superior parathyroidectomy in 2007 had follow [facility] at [place], last seen in 2019, recommend re stablishing for monitoring of calcium levels avoid calcium supplements which can also be found in daily MVI #Chronic diarrhea: felt 2/2 hx of R hemicolectomy as well as last years gallbladder surgery, bowels always loose, was recently prescribe cholestyramine but didn't start yet #DVT ppx: SQ Lovenox FULL CODE I spent a total of 56 minutes coordinating, documenting and providing care for this patient excluding time spent in the performance of separately billed services or time spent by another provider/QHP. Admission and Anticipated Discharge Date Admission Date: May 26, 2025 Subjective Chart, vital signs and data reviewed in detail. Patient seen at bedside. Overall feels better. Review of Systems Review of Systems: Constitutional- no fever; no chills Pulmonary- no cough, no wheezing, no shortness of breath Cardiac- no chest pain, no palpitations, no orthopnea, has chronic dependent edema GI- no nausea, no vomiting, no diarrhea, no melena, no hematochezia - no dysuria, no hematuria Neuro- no headaches, no focal neurologic symptoms Physical Exam Physical Exam: General- adult elderly female Head- atraumatic Eyes- PERRL, EOMI, anicteric ENT- oropharynx clear Neck- supple, no JVD, no adenopathy, no thyromegaly; carotids +2/2, no bruits appreciated Lungs- clear to auscultation and percussion Heart- regular rhythm; no murmur, no gallop, no rub appreciated Abdomen- normal bowel sounds, soft, nontender, no masses or hepatosplenomegaly Extremities- trace pretibial edema, no calf tenderness; poor peripheral pulses. Venous stasis both legs. Has several scattered diabetic ulcers on the extremities. L medial ankle/,L3rd distal toe, developing blister to lateral 4th toe, blood bulla to distal 5th toe and lateral ankle wound None are draining or seem to be actively infected. Has erythema to both lower extremities. Seems to be dependent however Neuro- alert, oriented x 3; PERRL, EOMI; Skin- warm & dry Results & Data Results & Data Vital Signs (Past 12 Hours) Vital Signs Temp Pulse Pulse Resp BP Pulse Ox O2 Del Method 05/27/25 11:45 36.5 C 60 20 131/53 L 97 Room Air 05/27/25 08:16 36.8 C 59 L 20 119/57 L 98 Room Air 05/27/25 07:29 57 L 05/27/25 03:23 36.3 C L 67 20 144/56 H 96 Room Air Diagnostic Findings Laboratory Results WBC 5.03 K/ul (4.8-10.8) 05/27/25 07:33 RBC 2.25 M/uL (4.20-5.40) L 05/27/25 07:33 Hgb 8.0 g/dl (12.0-16.0) L 05/27/25 07:33 Hct 24.4 % (37.0-47.0) L 05/27/25 07:33 MCV 108.4 fL (80.0-100.0) H 05/27/25 07:33 MCH 35.6 pg (25.0-34.0) H 05/27/25 07:33 MCHC 32.8 g/dL (32.0-36.0) 05/27/25 07:33 RDW Std Deviation 61.4 fL (36.4-46.3) H 05/27/25 07:33 RDW Coeff of Lynda 15.6 % (11.5-14.5) H 05/27/25 07:33 Plt Count 209 K/uL (130-400) 05/27/25 07:33 MPV 10.6 fL (9.4-12.4) 05/27/25 07:33 Reticulocyte % (Auto) 2.87 % (0.50-2.00) H 05/27/25 07:33 Reticulocyte # 0.060 10^6/uL (0.020-0.100) 05/27/25 07:33 Neutrophils % (Manual) 16 % 05/27/25 07:33 Lymphocytes % (Manual) 38 % 05/27/25 07:33 Monocytes % (Manual) 4 % 05/27/25 07:33 Eosinophils % (Manual) 1 % 05/27/25 07:33 Basophils % (Manual) 1 % 05/27/25 07:33 Neutrophils # (Manual) 0.80 K/uL (1.40-6.50) L 05/27/25 07:33 Total Absolute Neuts 0.80 K/uL (1.4-6.5) L* 05/27/25 07:33 Lymphocytes # (Manual) 1.91 K/uL (1.2-3.4) 05/27/25 07:33 Total Abs Lymphocytes 3.92 K/uL (1.2-3.4) H 05/27/25 07:33 Monocytes # (Manual) 0.20 K/uL (0.11-0.59) 05/27/25 07:33 Eosinophils # (Manual) 0.05 K/uL (0-0.50) 05/27/25 07:33 Basophils # (Manual) 0.05 K/uL (0-0.2) 05/27/25 07:33 Large Granular Lymphs 40 % 05/27/25 07:33 # Lrg Granular Lymphs 2.01 K/uL 05/27/25 07:33 Smudge Cells Present 05/27/25 07:33 RBC Morphology Unremarkable 05/26/25 14:32 Polychromasia 1+ 05/27/25 07:33 Peripher Smr Path Cons 05/26/25 14:32 Sodium 140 mmol/L (136-145) 05/27/25 07:33 Potassium 3.8 mmol/L (3.5-5.1) 05/27/25 07:33 Chloride 110 mmol/L (98-107) H 05/27/25 07:33 Carbon Dioxide 26 mmol/L (21-32) 05/27/25 07:33 Anion Gap 4 (3-11) 05/27/25 07:33 BUN 23 mg/dl (6-23) 05/27/25 07:33 Creatinine 0.88 mg/dl (0.6-1.2) 05/27/25 07:33 Est Cr Clr Drug Dosing 46.3 ml/min 05/27/25 07:33 eGFR 64.76 05/27/25 07:33 BUN/Creatinine Ratio 26.1 (10-20) H 05/27/25 07:33 Glucose 132 mg/dl (70-99(Fasting)) H 05/27/25 07:33 POC Glucose 235 mg/dl (70-99) H 05/27/25 12:07 Estimat Average Glucose 186 mg/dl 05/27/25 07:33 Hemoglobin A1c 8.1 % (4.5-5.6) H 05/27/25 07:33 Lactate 1.5 mmol/L (0.4-2.0) 05/26/25 14:32 Calcium 9.3 mg/dl (8.6-10.3) 05/27/25 07:33 Ionized Calcium 1.44 mmol/L (1.12-1.32) H 05/26/25 16:35 Magnesium 1.4 mg/dl (1.7-2.4) L 05/27/25 07:33 Iron 98 mcg/dl (35-150) 05/26/25 14:32 TIBC 336 mcg/dl (250-450) 05/26/25 14:32 Transferrin 240 mg/dl (200-360) 05/26/25 14:32 Transferrin % Sat 29 % (15-50) 05/26/25 14:32 Ferritin 48.6 ng/ml (8-388) 05/26/25 14:32 Total Bilirubin 0.4 mg/dl (0.2-1.0) 05/27/25 07:33 AST 13 U/L (13-39) 05/27/25 07:33 ALT 13 U/L (7-52) 05/27/25 07:33 Alkaline Phosphatase 58 U/L (34-104) 05/27/25 07:33 Lactate Dehydrogenase 129 U/L (86-244) 05/27/25 07:33 C-Reactive Protein < 0.50 mg/dl (0-0.5) 05/26/25 14:32 Total Protein 5.7 gm/dl (6.0-8.3) L 05/27/25 07:33 Albumin 3.5 gm/dl (3.4-5.0) 05/27/25 07:33 Globulin 2.2 gm/dl (2.5-4.0) L 05/27/25 07:33 Albumin/Globulin Ratio 1.6 (0.9-2) 05/27/25 07:33 Vitamin B12 533 pg/ml (180-914) 05/26/25 14:32 Folate > 22.30 ng/ml (>5.38) 05/26/25 14:32 Procalcitonin 0.02 ng/ml (0-0.5) 05/26/25 14:32 TSH 4.312 uIu/ml (0.300-4.500) 05/27/25 07:33 Free T4 1.16 ng/dl (0.61-1.60) 05/27/25 07:33 Nasal Screen MRSA (PCR) Negative (Negative) 05/26/25 Unknown Impressions Foot X-Ray 05/26/25 14:29 Study: Left ankle and left foot 3 views History: Pain Comparison: None Findings: There is no acute fracture or dislocation. Alignment is anatomic. Joint spaces are well maintained. Swelling and mild soft tissue irregularity about the medial aspect of the ankle compatible with known ulcer. Bone mineralization is decreased. Impression: No acute bony abnormality Electronically signed by Ilia Ortega 05-26-2025 4:35 PM Ankle X-Ray 05/26/25 14:34 Study: Left ankle and left foot 3 views History: Pain Comparison: None Findings: There is no acute fracture or dislocation. Alignment is anatomic. Joint spaces are well maintained. Swelling and mild soft tissue irregularity about the medial aspect of the ankle compatible with known ulcer. Bone mineralization is decreased. Impression: No acute bony abnormality Electronically signed by Ilia Ortega 05-26-2025 4:35 PM Duplex Scan Lower Extremity Artery 05/26/25 16:50 EXAM: US arterial duplex LE BI CLINICAL HISTORY: foot wounds, erythema. TECHNIQUE: Ultrasound examination of the bilateral lower extremities arteries with ankle brachial indices was performed in real time and duplex. One or more of the following were performed- spectral analysis, waveform analysis, and pulsed Doppler. COMPARISON: None. FINDINGS: Vessel Flow Pattern Right Peak Velocity Right (cm/sec) Flow Pattern Left Peak Velocity Left (cm/sec) Common Femoral Artery (RAILROAD BRAKE OPERATOR) Biphasic 140 Biphasic 80.2 Deep Femoral Artery (DPA) Biphasic 65.8 Biphasic 41.2 Superficial Femoral Artery (SFA) Biphasic Proximal:97.1 Mid: 78.6 Distal: 102.4 Biphasic Proximal:64 Mid: 47.2 Distal: 52.7 Popliteal Artery (POP A) Biphasic Proximal:180 Distal: 226.3 Monophasic 39.3 Anterior Tibial Artery (SLURRY PLANT OPERATOR) Biphasic Proximal:61 Mid: 45.2 Distal: 54.9 Monophasic Proximal:27 Mid: 68.8 Distal: 27.1 Posterior Tibial Artery (SLURRY PLANT OPERATOR) Biphasic Proximal:60.5 Mid: 54.3 Distal: 76 Monophasic Proximal:64.2 Mid: 28.5 Distal: 25.1 Peroneal Artery Monophasic Proximal:55.2 Mid: 41.8 Distal: 51.5 Monophasic Mid: 15.6 Distal: 16.7 Dorsalis Pedis Artery (DPA) Monophasic 21 Monophasic 42.7 Ankle brachial indiex on left side measuring 0.73. TBI measures 0.61 on right and 0.71 on left side. Diffuse atherosclerosis changes with increased intima/media thickness and wall calcifications involving both lower limb arteries. Biphasic waveform pattern observed throughout both common ,superficial , deep femoral , right popliteal , right anterior and posterior tibial arteries. Monophasic waveform pattern observed throughout, left popliteal , left anterior ,posterior tibial , both peroneal and both dorsalis pedis arteries. Mild stenosis at right popliteal artery with high PSV reaching 80 and 226.3cm/sec at its proximal and distal parts respectively. The peak systolic velocities of other arteries are within normal limit bilaterally. Collateral Circulation: No significant collateral circulation . IMPRESSION: 1. Diffuse atherosclerosis changes of both lower limb arteries, more evident at popliteal and infrapopliteal arteries associated with bilateral mild chronic ischemia more on the right side. 2. Mild stenosis at right politeal artery. 3. Low TBI on right side and low SETH on left side 4. Clinical correlation and further evaluation with CT Angiography are advised. Electronically signed by Juan Merchant 05-27-2025 12:50 PM
--- NOTE | 2025-05-27 19:48 | Communication Note ---
Date of Service: May 27, 2025 Patient complaining of intolerable LE pain from DM neuropathy. Has not tolerated gabapentin in the past as per RN. AP DM neuropathy Cymbalta trial
[2025-05-28 08:23] LABS: Hematocrit (blood only) 25.3 % (37.0-47.0); Hemoglobin 8.4 g/dl (12.0-16.0); Mean Corpuscular Hemoglobin 35.9 pg (25.0-34.0); Mean Corpuscular Volume 108.1 fL (80.0-100.0); Platelet Count 209 K/uL (130-400); RDW Standard Deviation 61.1 fL (36.4-46.3); Red Blood Count 2.34 M/uL (4.20-5.40); White Blood Count 5.11 K/ul (4.8-10.8)
[2025-05-28 08:46] LABS: Anion Gap 6.0 (3-11); Blood Urea Nitrogen 25.0 mg/dl (6-23); Calcium 9.3 mg/dl (8.6-10.3); Carbon Dioxide 25.0 mmol/L (21-32); Chloride 107.0 mmol/L (98-107); Creatinine Clr Calc Pharmacy 47.4 ml/min; Glucose 172.0 mg/dl (70-99(Fasting)); Potassium 3.9 mmol/L (3.5-5.1); Sodium 138.0 mmol/L (136-145)
[2025-05-28] MEDS: DOXYCYCLINE HYCLATE 100 MG CAP PO ONE (11:06)
--- NOTE | 2025-05-28 14:50 | Hospitalist Progress Note ---
Date of Service May 28, 2025 Assessment & Plan (1) Cellulitis of left lower extremity: (2) T2DM (type 2 diabetes mellitus): (3) Diabetic neuropathy: (4) HTN (hypertension): (5) Primary hyperparathyroidism: (6) HLD (hyperlipidemia): (7) Anemia: (8) Neutropenia: Plan This is an 84-year-old female with significant past medical history of T2DM, diabetic peripheral neuropathy, HTN, HLD, hypothyroidism, primary hyperparathyroidism, diabetic nonproliferative retinopathy, mild mitral valve stenosis, lumbar spinal stenosis who presents to ED secondary to multiple non healing L foot wounds with associated redness. 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 Medrano - spoke to provider at bedside, likely cellulitis, no surgical debridement necessary, highly suspicious of charcot arthropathy consult wound nurse for treatment/follow up MRSA swab if negative no indication for mrsa coverage given low risk Vascular Arterial duplex reviewed #Anemia, chronic Pt has been anemia since March of 2024 per epic review, lows of 8 after acute gallbladder surgery currently 9.6 and 29.2 anemia panel including iron profile, b12, folate unremarkable retic ct, [id number], tsh/t4, LDH reviewed peripheral smear reviewed: Peripheral smear for review:1. Normochromic/macrocytic red blood cells, markedly reduced numbers of cytologically unremarkable PMN leukocytes, unremarkable lymphocytes, unremarkable monocytes and unremarkable platelets are all seen.#2. Blasts, schistocytes and spherocytes are all not seen.#3. Although the cytologic signs of sepsis are not seen, it should be noted that this patient has severe neutropenia with an absolute neutrophile count of 0.81 x 10 to the ninth per liter.#4. The cause of this patient's absolute neutropenia is left for clinical correlation.#5. Review of the electronic medical record indicates the patient has unremarkable levels of vitamin B12, folate, and iron studies suggesting the patient's anemia is anemia of chronic disease. will likely need hematology referral as outpt, pt reports chronic fatigue, denies s/sx of bleeding, last c scope was 4 years ago, pt continues to receive them due to strong family hx #Neutropenia pt with absolute neutrophil count low, present since 05/2024 post gallbladder surgery peripheral smear ad above pt likely to need hematology referral as outpt #T2DM with neuropathy, retinopathy controlled for age, last a1c 7.7 in January, a1c this admission 8.1. lantus/novolog per protocol hold metformin, glimepiride #HTN chronic, stable, although BPs are soft continue atenolol and decrease enalapril dose 20mg--->10 mg hold HCTZ for now given hypercalc and known primary hyperparathyroidism pt previously follow endo in [place] who recommended discontinuing hctz, pt reports resuming it due to some lower ext edema #Hypercalcemia #Primary Hyperparathyroidism with hx of R superior parathyroidectomy in 2007 had follow [facility] at [place], last seen in 2019, recommend re stablishing for monitoring of calcium levels avoid calcium supplements which can also be found in daily MVI #Chronic diarrhea: felt 2/2 hx of R hemicolectomy as well as last years gallbladder surgery, bowels always loose, was recently prescribe cholestyramine but didn't start yet she states some constipation now. Will observe Consult PT Trial low dose Cymbalta and Lyrica for severe neuropathic pain #DVT ppx: SQ Lovenox FULL CODE I spent a total of 56 minutes coordinating, documenting and providing care for this patient excluding time spent in the performance of separately billed services or time spent by another provider/QHP. Admission and Anticipated Discharge Date Admission Date: May 26, 2025 Subjective Chart, vital signs and data reviewed in detail. Patient seen at bedside. Hav ing severe neuropathic pain in the lower extremities. Patient did not tolerate gabapentin in the past. Cymbalta started. Again the redness in her lower extremities goes away when she is supine suggesting dependent rubor or Charcot inflammation as mentioned by orthopedics. At home she occasionally uses a cane but is finding that she needs to use a walker now due to the neuropathy. Review of Systems Review of Systems: Constitutional- no fever; no chills Pulmonary- no cough, no wheezing, no shortness of breath Cardiac- no chest pain, no palpitations, no orthopnea, no dependent edema GI- no nausea, no vomiting, no diarrhea, no melena, no hematochezia Physical Exam Physical Exam: General- adult female seen a bedside, chronic ill appearance Eyes- PERRL, EOMI, anicteric Lungs- clear to auscultation and percussion Heart- regular rhythm; no murmur, no gallop, no rub appreciated Abdomen- normal bowel sounds, soft, nontender, no masses or hepatosplenomegaly Extremities- trace pretibial edema, no calf tenderness; poor peripheral pulses. Venous stasis both legs. Has several scattered diabetic ulcers on the extremities. L medial ankle/,L3rd distal toe, developing blister to lateral 4th toe, blood bulla to distal 5th toe and lateral ankle wound None are draining or seem to be actively infected. Has erythema to both lower extremities but resolves when she is supine. Results & Data Results & Data Vital Signs (Past 12 Hours) Vital Signs Temp Pulse Pulse Resp BP Pulse Ox O2 Del Method 05/28/25 11:21 36.7 C 60 16 123/43 L 96 Room Air 05/28/25 07:27 36.6 C 61 18 121/60 94 Room Air 05/28/25 07:16 59 L 05/28/25 03:30 36.7 C 61 18 143/61 H 92 Room Air Diagnostic Findings Laboratory Results WBC 5.11 K/ul (4.8-10.8) 05/28/25 06:50 RBC 2.34 M/uL (4.20-5.40) L 05/28/25 06:50 Hgb 8.4 g/dl (12.0-16.0) L 05/28/25 06:50 Hct 25.3 % (37.0-47.0) L 05/28/25 06:50 MCV 108.1 fL (80.0-100.0) H 05/28/25 06:50 MCH 35.9 pg (25.0-34.0) H 05/28/25 06:50 MCHC 33.2 g/dL (32.0-36.0) 05/28/25 06:50 RDW Std Deviation 61.1 fL (36.4-46.3) H 05/28/25 06:50 RDW Coeff of Lynda 15.7 % (11.5-14.5) H 05/28/25 06:50 Plt Count 209 K/uL (130-400) 05/28/25 06:50 MPV 10.7 fL (9.4-12.4) 05/28/25 06:50 Reticulocyte % (Auto) 2.87 % (0.50-2.00) H 05/27/25 07:33 Reticulocyte # 0.060 10^6/uL (0.020-0.100) 05/27/25 07:33 Neutrophils % (Manual) 16 % 05/27/25 07:33 Lymphocytes % (Manual) 38 % 05/27/25 07:33 Monocytes % (Manual) 4 % 05/27/25 07:33 Eosinophils % (Manual) 1 % 05/27/25 07:33 Basophils % (Manual) 1 % 05/27/25 07:33 Neutrophils # (Manual) 0.80 K/uL (1.40-6.50) L 05/27/25 07:33 Total Absolute Neuts 0.80 K/uL (1.4-6.5) L* 05/27/25 07:33 Lymphocytes # (Manual) 1.91 K/uL (1.2-3.4) 05/27/25 07:33 Total Abs Lymphocytes 3.92 K/uL (1.2-3.4) H 05/27/25 07:33 Monocytes # (Manual) 0.20 K/uL (0.11-0.59) 05/27/25 07:33 Eosinophils # (Manual) 0.05 K/uL (0-0.50) 05/27/25 07:33 Basophils # (Manual) 0.05 K/uL (0-0.2) 05/27/25 07:33 Large Granular Lymphs 40 % 05/27/25 07:33 # Lrg Granular Lymphs 2.01 K/uL 05/27/25 07:33 Smudge Cells Present 05/27/25 07:33 RBC Morphology Unremarkable 05/26/25 14:32 Polychromasia 1+ 05/27/25 07:33 Peripher Smr Path Cons 05/26/25 14:32 Haptoglobin 58 mg/dL (43-212) 05/27/25 07:33 Sodium 138 mmol/L (136-145) 05/28/25 06:50 Potassium 3.9 mmol/L (3.5-5.1) 05/28/25 06:50 Chloride 107 mmol/L (98-107) 05/28/25 06:50 Carbon Dioxide 25 mmol/L (21-32) 05/28/25 06:50 Anion Gap 6 (3-11) 05/28/25 06:50 BUN 25 mg/dl (6-23) H 05/28/25 06:50 Creatinine 0.86 mg/dl (0.6-1.2) 05/28/25 06:50 Est Cr Clr Drug Dosing 47.4 ml/min 05/28/25 06:50 eGFR 66.57 05/28/25 06:50 BUN/Creatinine Ratio 29.1 (10-20) H 05/28/25 06:50 Glucose 172 mg/dl (70-99(Fasting)) H 05/28/25 06:50 POC Glucose 225 mg/dl (70-99) H 05/28/25 12:13 Estimat Average Glucose 186 mg/dl 05/27/25 07:33 Hemoglobin A1c 8.1 % (4.5-5.6) H 05/27/25 07:33 Lactate 1.5 mmol/L (0.4-2.0) 05/26/25 14:32 Calcium 9.3 mg/dl (8.6-10.3) 05/28/25 06:50 Ionized Calcium 1.44 mmol/L (1.12-1.32) H 05/26/25 16:35 Magnesium 1.4 mg/dl (1.7-2.4) L 05/27/25 07:33 Iron 98 mcg/dl (35-150) 05/26/25 14:32 TIBC 336 mcg/dl (250-450) 05/26/25 14:32 Transferrin 240 mg/dl (200-360) 05/26/25 14:32 Transferrin % Sat 29 % (15-50) 05/26/25 14:32 Ferritin 48.6 ng/ml (8-388) 05/26/25 14:32 Total Bilirubin 0.4 mg/dl (0.2-1.0) 05/27/25 07:33 AST 13 U/L (13-39) 05/27/25 07:33 ALT 13 U/L (7-52) 05/27/25 07:33 Alkaline Phosphatase 58 U/L (34-104) 05/27/25 07:33 Lactate Dehydrogenase 129 U/L (86-244) 05/27/25 07:33 C-Reactive Protein < 0.50 mg/dl (0-0.5) 05/26/25 14:32 Total Protein 5.7 gm/dl (6.0-8.3) L 05/27/25 07:33 Albumin 3.5 gm/dl (3.4-5.0) 05/27/25 07:33 Globulin 2.2 gm/dl (2.5-4.0) L 05/27/25 07:33 Albumin/Globulin Ratio 1.6 (0.9-2) 05/27/25 07:33 Vitamin B12 533 pg/ml (180-914) 05/26/25 14:32 Folate > 22.30 ng/ml (>5.38) 05/26/25 14:32 Procalcitonin 0.02 ng/ml (0-0.5) 05/26/25 14:32 TSH 4.312 uIu/ml (0.300-4.500) 05/27/25 07:33 Free T4 1.16 ng/dl (0.61-1.60) 05/27/25 07:33 Nasal Screen MRSA (PCR) Negative (Negative) 05/26/25 Unknown Impressions Foot X-Ray 05/26/25 14:29 Study: Left ankle and left foot 3 views History: Pain Comparison: None Findings: There is no acute fracture or dislocation. Alignment is anatomic. Joint spaces are well maintained. Swelling and mild soft tissue irregularity about the medial aspect of the ankle compatible with known ulcer. Bone mineralization is decreased. Impression: No acute bony abnormality Electronically signed by Ilia Ortega 05-26-2025 4:35 PM Ankle X-Ray 05/26/25 14:34 Study: Left ankle and left foot 3 views History: Pain Comparison: None Findings: There is no acute fracture or dislocation. Alignment is anatomic. Joint spaces are well maintained. Swelling and mild soft tissue irregularity about the medial aspect of the ankle compatible with known ulcer. Bone mineralization is decreased. Impression: No acute bony abnormality Electronically signed by Ilia Ortega 05-26-2025 4:35 PM Duplex Scan Lower Extremity Artery 05/26/25 16:50 EXAM: US arterial duplex LE BI CLINICAL HISTORY: foot wounds, erythema. TECHNIQUE: Ultrasound examination of the bilateral lower extremities arteries with ankle brachial indices was performed in real time and duplex. One or more of the following were performed- spectral analysis, waveform analysis, and pulsed Doppler. COMPARISON: None. FINDINGS: Vessel Flow Pattern Right Peak Velocity Right (cm/sec) Flow Pattern Left Peak Velocity Left (cm/sec) Common Femoral Artery (INSOLE BEVELER) Biphasic 140 Biphasic 80.2 Deep Femoral Artery (DPA) Biphasic 65.8 Biphasic 41.2 Superficial Femoral Artery (SFA) Biphasic Proximal:97.1 Mid: 78.6 Distal: 102.4 Biphasic Proximal:64 Mid: 47.2 Distal: 52.7 Popliteal Artery (POP A) Biphasic Proximal:180 Distal: 226.3 Monophasic 39.3 Anterior Tibial Artery (INTERNATIONAL SPECIALIST) Biphasic Proximal:61 Mid: 45.2 Distal: 54.9 Monophasic Proximal:27 Mid: 68.8 Distal: 27.1 Posterior Tibial Artery (INTERNATIONAL SPECIALIST) Biphasic Proximal:60.5 Mid: 54.3 Distal: 76 Monophasic Proximal:64.2 Mid: 28.5 Distal: 25.1 Peroneal Artery Monophasic Proximal:55.2 Mid: 41.8 Distal: 51.5 Monophasic Mid: 15.6 Distal: 16.7 Dorsalis Pedis Artery (DPA) Monophasic 21 Monophasic 42.7 Ankle brachial indiex on left side measuring 0.73. TBI measures 0.61 on right and 0.71 on left side. Diffuse atherosclerosis changes with increased intima/media thickness and wall calcifications involving both lower limb arteries. Biphasic waveform pattern observed throughout both common ,superficial , deep femoral , right popliteal , right anterior and posterior tibial arteries. Monophasic waveform pattern observed throughout, left popliteal , left anterior ,posterior tibial , both peroneal and both dorsalis pedis arteries. Mild stenosis at right popliteal artery with high PSV reaching 80 and 226.3cm/sec at its proximal and distal parts respectively. The peak systolic velocities of other arteries are within normal limit bilaterally. Collateral Circulation: No significant collateral circulation . IMPRESSION: 1. Diffuse atherosclerosis changes of both lower limb arteries, more evident at popliteal and infrapopliteal arteries associated with bilateral mild chronic ischemia more on the right side. 2. Mild stenosis at right politeal artery. 3. Low TBI on right side and low SETH on left side 4. Clinical correlation and further evaluation with CT Angiography are advised. Electronically signed by Juan Merchant 05-27-2025 12:50 PM
[2025-05-28] MEDS: POLYETHYLENE (MIRALAX) 17 GM PACK PO PRN (17:32)
[2025-05-28] MEDS: DOXYCYCLINE HYCLATE 100 MG CAP PO SCH (20:42)
[2025-05-28] MEDS: PREGABALIN 25 MG CAP PO SCH (20:44)
[2025-05-29 06:12] LABS: Hematocrit (blood only) 25.9 % (37.0-47.0); Hemoglobin 8.7 g/dl (12.0-16.0); Mean Corpuscular Hemoglobin 36.3 pg (25.0-34.0); Mean Corpuscular Volume 107.9 fL (80.0-100.0); Platelet Count 218 K/uL (130-400); RDW Standard Deviation 62.1 fL (36.4-46.3); Red Blood Count 2.40 M/uL (4.20-5.40); White Blood Count 6.74 K/ul (4.8-10.8)
[2025-05-29 06:35] LABS: Anion Gap 6.0 (3-11); Blood Urea Nitrogen 29.0 mg/dl (6-23); Calcium 9.7 mg/dl (8.6-10.3); Carbon Dioxide 26.0 mmol/L (21-32); Chloride 106.0 mmol/L (98-107); Creatinine Clr Calc Pharmacy 40.3 ml/min; Glucose 167.0 mg/dl (70-99(Fasting)); Potassium 4.0 mmol/L (3.5-5.1); Sodium 138.0 mmol/L (136-145)
[2025-05-29] MEDS: ENALAPRIL MALEATE 10 MG TAB PO SCH (09:38)
[2025-05-29 10:09] LABS: Magnesium 1.7 mg/dl (1.7-2.4)
[2025-05-29] MEDS: MAGNESIUM SULFATE / D5W 1 GM/100 ML BAG IV ONE (10:38)
--- NOTE | 2025-05-29 14:22 | Hospitalist Progress Note ---
Date of Service May 29, 2025 Assessment & Plan (1) Cellulitis of left lower extremity: (2) T2DM (type 2 diabetes mellitus): (3) Diabetic neuropathy: (4) HTN (hypertension): (5) Primary hyperparathyroidism: (6) HLD (hyperlipidemia): (7) Anemia: (8) Neutropenia: Plan This is an 84-year-old female with significant past medical history of T2DM, diabetic peripheral neuropathy, HTN, HLD, hypothyroidism, primary hyperparathyroidism, diabetic nonproliferative retinopathy, mild mitral valve stenosis, lumbar spinal stenosis who presents to ED secondary to multiple non healing L foot wounds with associated redness. 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 Medrano - no surgical debridement necessary, highly suspicious of charcot arthropathy consult wound nurse for treatment/follow up MRSA swab if negative no indication for mrsa coverage given low risk Vascular Arterial duplex reviewed and discussed w/ Dr. Medrano - recommend outpt follow up #Anemia, chronic Pt has been anemia since March of 2024 per epic review, lows of 8 after acute gallbladder surgery currently 9.6 and 29.2 anemia panel including iron profile, b12, folate unremarkable retic ct, [id number], tsh/t4, LDH reviewed peripheral smear reviewed: Peripheral smear for review:1. Normochromic/macrocytic red blood cells, markedly reduced numbers of cytologically unremarkable PMN leukocytes, unremarkable lymphocytes, unremarkable monocytes and unremarkable platelets are all seen.#2. Blasts, schistocytes and spherocytes are all not seen.#3. Although the cytologic signs of sepsis are not seen, it should be noted that this patient has severe neutropenia with an absolute neutrophile count of 0.81 x 10 to the ninth per liter.#4. The cause of this patient's absolute neutropenia is left for clinical correlation.#5. Review of the electronic medical record indicates the patient has unremarkable levels of vitamin B12, folate, and iron studies suggesting the patient's anemia is anemia of chronic disease. will likely need hematology referral as outpt, pt reports chronic fatigue, denies s/sx of bleeding, last c scope was 4 years ago, pt continues to receive them due to strong family hx #Neutropenia pt with absolute neutrophil count low, present since 05/2024 post gallbladder surgery peripheral smear as above pt likely to need hematology referral as outpt #T2DM with neuropathy, retinopathy controlled for age, last a1c 7.7 in January, a1c this admission 8.1. lantus/novolog per protocol hold metformin, glimepiride #HTN chronic, stable, although BPs fluctuates continue atenolol and decrease enalapril dose 20mg--->10 mg hold HCTZ for now given hypercalc and known primary hyperparathyroidism pt previously follow endo in [place] who recommended discontinuing hctz, pt reports resuming it due to some lower ext edema #Hypercalcemia #Primary Hyperparathyroidism with hx of R superior parathyroidectomy in 2007 had follow [facility] at [place], last seen in 2019, recommend re establishing for monitoring of calcium levels avoid calcium supplements which can also be found in daily MVI #Chronic diarrhea: felt 2/2 hx of R hemicolectomy as well as last years gallbladder surgery, bowels always loose, was recently prescribe cholestyramine but didn't start yet she states some constipation now. Will observe Consult PT Trial low dose Cymbalta and Lyrica for severe neuropathic pain #DVT ppx: SQ Lovenox FULL CODE Admission and Anticipated Discharge Date Admission Date: May 26, 2025 Subjective Pt seen in follow up Having severe neuropathic pain in the lower extremities. Patient did not tolerate gabapentin in the past. Cymbalta and Lyrica were started in the hospital. Pain seems improved now, pt says she was able to get some sleep. Again the redness in her lower extremities goes away when she is supine suggesting dependent rubor or Charcot inflammation as mentioned by orthopedics. At home she occasionally uses a cane but is finding that she needs to use a walker now due to the neuropathy. Currently no fever, chills, chest pain or shortness of breath, no abd. pain, n/v discussed w/ orthopedics today and w/ lyric writer of Systems Review of Systems: All systems reviewed & are unremarkable except as noted in Subjective Physical Exam Physical Exam: General- adult female,WD/WN in NAD, chronic ill appearance Eyes- PERRL, EOMI, anicteric Lungs- clear to auscultation b/l Heart- regular rhythm; soft murmur Abdomen- normal bowel sounds, soft, nontender Extremities- trace pretibial edema, no calf tenderness; poor peripheral pulses. Venous stasis both legs. Has several scattered diabetic ulcers on the extremities. L medial ankle/,L3rd distal toe, developing blister to lateral 4th toe, blood bulla to distal 5th toe and lateral ankle wound None are draining or seem to be actively infected. Has erythema to both lower extremities but resolves when she is supine. Results & Data Results & Data Vital Signs (Past 12 Hours) Vital Signs Temp Pulse Pulse Resp BP Pulse Ox O2 Del Method 05/29/25 11:51 36.8 C 61 20 141/57 H 95 Room Air 05/29/25 07:37 36.3 C L 57 L 20 146/68 H 97 Room Air 05/29/25 07:05 62 05/29/25 03:26 36.6 C 65 20 109/60 93 Room Air Laboratory Results 05/29/25 05/29/25 05/29/25 Range/Units 12:06 08:00 05:39 WBC 6.74 (4.8-10.8) K/ul RBC 2.40 L (4.20-5.40) M/uL Hgb 8.7 L (12.0-16.0) g/dl Hct 25.9 L (37.0-47.0) % MCV 107.9 H (80.0-100.0) fL MCH 36.3 H (25.0-34.0) pg MCHC 33.6 (32.0-36.0) g/dL RDW Std Deviation 62.1 H (36.4-46.3) fL RDW Coeff of Lynda 15.4 H (11.5-14.5) % Plt Count 218 (130-400) K/uL MPV 10.8 (9.4-12.4) fL Sodium 138 (136-145) mmol/L Potassium 4.0 (3.5-5.1) mmol/L Chloride 106 (98-107) mmol/L Carbon Dioxide 26 (21-32) mmol/L Anion Gap 6 (3-11) BUN 29 H (6-23) mg/dl Creatinine 1.01 (0.6-1.2) mg/dl Est Cr Clr Drug Dosing 40.3 ml/min eGFR 54.89 BUN/Creatinine Ratio 28.7 H (10-20) Glucose 167 H (70-99(Fasting)) mg/dl POC Glucose 272 H 189 H (70-99) mg/dl Calcium 9.7 (8.6-10.3) mg/dl Magnesium 1.7 (1.7-2.4) mg/dl 05/28/25 05/28/25 05/28/25 Range/Units 21:12 20:28 17:06 WBC (4.8-10.8) K/ul RBC (4.20-5.40) M/uL Hgb (12.0-16.0) g/dl Hct (37.0-47.0) % MCV (80.0-100.0) fL MCH (25.0-34.0) pg MCHC (32.0-36.0) g/dL RDW Std Deviation (36.4-46.3) fL RDW Coeff of Lynda (11.5-14.5) % Plt Count (130-400) K/uL MPV (9.4-12.4) fL Sodium (136-145) mmol/L Potassium (3.5-5.1) mmol/L Chloride (98-107) mmol/L Carbon Dioxide (21-32) mmol/L Anion Gap (3-11) BUN (6-23) mg/dl Creatinine (0.6-1.2) mg/dl Est Cr Clr Drug Dosing ml/min eGFR BUN/Creatinine Ratio (10-20) Glucose (70-99(Fasting)) mg/dl POC Glucose 202 H 201 H 132 H (70-99) mg/dl Calcium (8.6-10.3) mg/dl Magnesium (1.7-2.4) mg/dl Medications Administered Current Inpatient Medications Acetaminophen (Acetaminophen 325 Mg Tab) 650 mg PO Q4H PRN PRN Reason: Pain or Fever Stop: 06/25/25 18:41 Last Admin: 05/27/25 05:50 Dose: 650 mg Aspirin (Aspirin 81 Mg Ectab) 81 mg PO DAILY VAL Stop: 06/26/25 08:59 Last Admin: 05/29/25 09:38 Dose: 81 mg Atenolol (Atenolol 50 Mg Tablet) 100 mg PO DAILY VAL Stop: 06/26/25 08:59 Last Admin: 05/29/25 09:37 Dose: 100 mg Atorvastatin Calcium (Atorvastatin 40 Mg Tab) 40 mg PO HS VAL Stop: 06/25/25 20:59 Last Admin: 05/28/25 20:42 Dose: 40 mg Dextrose (Dextrose 50% 50 Ml Syringe) 25 - 50 ml IV UD PRN; Protocol PRN Reason: Hypoglycemia Protocol Stop: 06/25/25 18:41 Doxycycline Hyclate (Doxycycline Hyclate 100 Mg Cap) 100 mg PO BID VAL Stop: 06/04/25 20:59 Last Admin: 05/29/25 09:37 Dose: 100 mg Duloxetine HCl (Duloxetine Hcl 20 Mg Cap) 20 mg PO HS VAL Stop: 06/26/25 19:49 Last Admin: 05/28/25 20:42 Dose: 20 mg Enalapril Maleate (Enalapril Maleate 10 Mg Tab) 10 mg PO DAILY VAL Stop: 06/28/25 08:59 Last Admin: 05/29/25 09:38 Dose: 10 mg Enoxaparin Sodium (Enoxaparin Inj 40 Mg/0.4 Ml Syr) 40 mg SQ HS VAL Stop: 06/25/25 20:59 Last Admin: 05/28/25 20:43 Dose: 40 mg Famotidine (Famotidine 20 Mg Tab) 20 mg PO DAILY PRN PRN Reason: Heartburn Stop: 06/25/25 18:41 Glucagon (Glucagon For Inj 1 Mg Vial) 1 mg SQ UD PRN; Protocol PRN Reason: Hypoglycemia Protocol Stop: 06/25/25 18:41 Glucose (Glucose 40% Gel 15 Gm Tube) 15 - 30 gm PO UD PRN; Protocol PRN Reason: Hypoglycemia Protocol Stop: 06/25/25 18:41 Glucose (Glucose 10 Tab/Tube) 4 - 8 tab PO UD PRN; Protocol PRN Reason: Hypoglycemia Protocol Stop: 06/25/25 18:41 Insulin Aspart (Insulin Aspart Per Unit Charge) 0 units SC ACHS VAL Stop: 06/25/25 20:59 Last Admin: 05/29/25 12:46 Dose: 5 units Insulin Glargine (Lantus Per Unit Charge) 0 - 6 units SQ BID VAL Stop: 06/25/25 20:59 Last Admin: 05/29/25 09:51 Dose: 6 units Lactobacillus Acidophilus (Advanced Probiotic 625 Mg Capsule) 1,250 mg PO DAILY VAL Stop: 06/26/25 08:59 Last Admin: 05/29/25 09:38 Dose: 1,250 mg Levothyroxine Sodium (Levothyroxine Sodium 75 Mcg Tablet) 75 mcg PO DAILYBB VAL Stop: 06/26/25 06:29 Last Admin: 05/29/25 05:17 Dose: 75 mcg Melatonin (Melatonin 3 Mg Tab) 3 mg PO HS PRN PRN Reason: Sleep Stop: 06/25/25 18:41 Last Admin: 05/27/25 20:12 Dose: 3 mg Miscellaneous (Carbohydrates For Hypoglycemia ) 15 - 30 gm PO UD PRN PRN Reason: Hypoglycemia Protocol Stop: 06/25/25 18:41 Ondansetron HCl (Ondansetron Inj 2 Mg/Ml 2 Ml Vial) 4 mg IV Q6H PRN PRN Reason: Nausea Stop: 06/25/25 18:41 Oxycodone HCl (Oxycodone Hcl Ir 5 Mg Tab (Immediate Release)) 5 mg PO Q4H PRN PRN Reason: Mod-Sev Pain (Scale 4-10) Stop: 06/09/25 18:41 Last Admin: 05/29/25 09:50 Dose: 5 mg Polyethylene Glycol (Polyethylene (Miralax) 17 Gm Pack) 17 gm PO DAILY PRN PRN Reason: Constipation Stop: 06/25/25 18:41 Last Admin: 05/29/25 09:50 Dose: 17 gm Pregabalin (Pregabalin 25 Mg Cap) 25 mg PO BID [facility] Stop: 06/27/25 20:59 Last Admin: 05/29/25 09:51 Dose: 25 mg
[2025-05-30 06:13] LABS: Hematocrit (blood only) 24.3 % (37.0-47.0); Hemoglobin 8.1 g/dl (12.0-16.0); Mean Corpuscular Hemoglobin 36.2 pg (25.0-34.0); Mean Corpuscular Volume 108.5 fL (80.0-100.0); Platelet Count 194 K/uL (130-400); RDW Standard Deviation 62.9 fL (36.4-46.3); Red Blood Count 2.24 M/uL (4.20-5.40); White Blood Count 5.59 K/ul (4.8-10.8)
[2025-05-30 06:31] LABS: Anion Gap 4.0 (3-11); Blood Urea Nitrogen 38.0 mg/dl (6-23); Calcium 9.3 mg/dl (8.6-10.3); Carbon Dioxide 26.0 mmol/L (21-32); Chloride 107.0 mmol/L (98-107); Creatinine Clr Calc Pharmacy 40.3 ml/min; Glucose 177.0 mg/dl (70-99(Fasting)); Magnesium 1.8 mg/dl (1.7-2.4); Potassium 4.5 mmol/L (3.5-5.1); Sodium 137.0 mmol/L (136-145)
[2025-05-30 07:04] LABS: ALC (manual) 4.64 K/uL (1.2-3.4); ANC (manual) 0.67 K/uL (1.4-6.5); Large Granular Lymph # (manua 1.84 K/uL; Large Granular Lymph % (manual) 33 %; Polychromasia 1+
[2025-05-30] MEDS: SENNA 8.6 MG TAB PO SCH (08:47)
--- NOTE | 2025-05-30 09:59 | Pain Management Consultation ---
Date of Consultation May 30, 2025 Assessment & Plan (1) Diabetic neuropathy: (2) Charcot arthropathy: (3) Lumbar stenosis with neurogenic claudication: (4) Hx of spinal fusion: Plan 1. Bilateral lower extremity neuropathy with 75% perceived improvement since starting pregabalin (Lyrica) and duloxetine (Cymbalta). Recommend continuation of both these medication on discharge. Duloxetine can be increased to 30 mg p.o. daily if tolerated. Will continue pregabalin at 25 mg p.o. twice daily if patient seems to be achieving adequate response. 2. Patient with history of lumbar fusion from L2-S1 07/25/[address] Galleg[place] [facility] Patient denies any significant radicular symptoms at this time and has no lumbosacral pain that is not well-managed. No indication for updated imaging at this time. 3. Patient is not eligible for any intervention in the way of injections as patient currently has open sores and is on antibiotics. As long as pain is well-controlled with oral agents, would not recommend epidural steroid injections or nerve blocks. 4. Patient can continue with [id number] NSAIDs and Tylenol as needed for breakthrough pain 5. If patient should have worsening symptoms or radicular symptoms as an outpatient, she is welcome to call our office for an appointment to establish as a new patient. Thank you for including us in the care of this patient. Pain management will sign off at this time. Please feel free to call with further questions or reconsult as needed. Case discussed with Dr. Tobar. History of Present Illness Reason for Consultation: Lower extremity neuropathy Attending Physician: David Lewis MD History of Present Illness Attending: Dr. Tobar Mrs. Andres is an 84-year-old female with a past medical history of spinal stenosis and spondylolisthesis, diabetes mellitus, history of neuropathy that was admitted on Tuesday for lower extremity pain in her left foot with open sores. She was seen by orthopedics who expressed concern for Charcot arthropathy. Patient reports that she has had previous spinal fusion with Dr. Gallegos approximately 10 years ago at levels L2-L3, L3-L4, L4-L5, L5-S1. Patient reports that prior to fusion she also had multiple epidural steroid injections with no benefit. She reports that she has had diabetic neuropathy of bilateral lower extremities for approximately 5 years. She has been on gabapentin with no improvement in symptoms. This was most recently discontinued several years ago. Patient's pain has been relatively controlled with [id number] NSAIDs and Tylenol until approximately 2 weeks ago when she developed open sores on her left foot and noticed increased edema and pain. She was admitted to the hospital on 05/26/2025. She reports that she was started on pregabalin (Lyrica) 25 mg p.o. twice daily and duloxetine 20 milligrams daily and currently has approximately 75% improvement in her symptoms. She has been fitted with a walking boot but has not used this at this time. She is currently on antibiotics and does currently have open sores. Patient reports that pain is aggravated by standing, walking. Is improved with current medication regimen as well as rest and elevation of her foot. Patient denies any vascular compromise in the past and has no history of vascular surgeries in the lower extremities. No recent lumbar MRI Previous interventions have included physical therapy, surgery, epidural steroid injection, gabapentin, ice, heat, rest, muscle relaxants, NSAIDs, Tylenol. Patient denies bowel or bladder incontinence. No saddle anesthesia. No unusual bleeding or bruising. No other constitutional complaints at this time. Allergies Allergy/AdvReac Type Severity Reaction Status Date / Time No Known Allergies Allergy Unknown Verified 05/26/25 16:00 Home Medications Medication Instructions Recorded Confirmed Type aspirin 81 mg tablet,delayed 81 mg PO DAILY 05/26/25 05/26/25 History release atenolol 100 mg tablet 100 mg PO DAILY 05/26/25 05/26/25 History atorvastatin 40 mg tablet 40 mg PO HS 05/26/25 05/26/25 History benazepril 40 mg tablet 40 mg PO DAILY 05/26/25 05/26/25 History cholestyramine (with sugar) 4 gram 1 ea PO BID 05/26/25 05/26/25 History powder for susp in a packet glimepiride 4 mg tablet 4 mg PO DAILYBB 05/26/25 05/26/25 History hydrochlorothiazide 25 mg tablet 25 mg PO DAILY 05/26/25 05/26/25 History levothyroxine 75 mcg tablet 75 mcg PO DAILYBB 05/26/25 05/26/25 History metformin 500 mg tablet,extended 1,000 mg PO BID 05/26/25 05/26/25 History release 24 hr multivitamin 1 tab PO DAILY 05/26/25 05/26/25 History vit C 250 mg-vit E 90 mg-zinc 40 1 tab PO BID 05/26/25 05/26/25 History mg-copper 1 [id number] capsule (PreserVision AREDS-2) Pain History Previous Imaging and Results Labs: 05/30/25 05:42 05/30/25 05:42 Imaging: Foot X-Ray 05/26/25 14:29 Study: Left ankle and left foot 3 views History: Pain Comparison: None Findings: There is no acute fracture or dislocation. Alignment is anatomic. Joint spaces are well maintained. Swelling and mild soft tissue irregularity about the medial aspect of the ankle compatible with known ulcer. Bone mineralization is decreased. Impression: No acute bony abnormality Electronically signed by Ilia Ortega 05-26-2025 4:35 PM Ankle X-Ray 05/26/25 14:34 Study: Left ankle and left foot 3 views History: Pain Comparison: None Findings: There is no acute fracture or dislocation. Alignment is anatomic. Joint spaces are well maintained. Swelling and mild soft tissue irregularity about the medial aspect of the ankle compatible with known ulcer. Bone mineralization is decreased. Impression: No acute bony abnormality Electronically signed by Ilia Ortega 05-26-2025 4:35 PM Duplex Scan Lower Extremity Artery 05/26/25 16:50 EXAM: US arterial duplex LE BI CLINICAL HISTORY: foot wounds, erythema. TECHNIQUE: Ultrasound examination of the bilateral lower extremities arteries with ankle brachial indices was performed in real time and duplex. One or more of the following were performed- spectral analysis, waveform analysis, and pulsed Doppler. COMPARISON: None. FINDINGS: Vessel Flow Pattern Right Peak Velocity Right (cm/sec) Flow Pattern Left Peak Velocity Left (cm/sec) Common Femoral Artery (LAN SPECIALIST) Biphasic 140 Biphasic 80.2 Deep Femoral Artery (DPA) Biphasic 65.8 Biphasic 41.2 Superficial Femoral Artery (SFA) Biphasic Proximal:97.1 Mid: 78.6 Distal: 102.4 Biphasic Proximal:64 Mid: 47.2 Distal: 52.7 Popliteal Artery (POP A) Biphasic Proximal:180 Distal: 226.3 Monophasic 39.3 Anterior Tibial Artery (WARPER FIXER) Biphasic Proximal:61 Mid: 45.2 Distal: 54.9 Monophasic Proximal:27 Mid: 68.8 Distal: 27.1 Posterior Tibial Artery (WARPER FIXER) Biphasic Proximal:60.5 Mid: 54.3 Distal: 76 Monophasic Proximal:64.2 Mid: 28.5 Distal: 25.1 Peroneal Artery Monophasic Proximal:55.2 Mid: 41.8 Distal: 51.5 Monophasic Mid: 15.6 Distal: 16.7 Dorsalis Pedis Artery (DPA) Monophasic 21 Monophasic 42.7 Ankle brachial indiex on left side measuring 0.73. TBI measures 0.61 on right and 0.71 on left side. Diffuse atherosclerosis changes with increased intima/media thickness and wall calcifications involving both lower limb arteries. Biphasic waveform pattern observed throughout both common ,superficial , deep femoral , right popliteal , right anterior and posterior tibial arteries. Monophasic waveform pattern observed throughout, left popliteal , left anterior ,posterior tibial , both peroneal and both dorsalis pedis arteries. Mild stenosis at right popliteal artery with high PSV reaching 80 and 226.3cm/sec at its proximal and distal parts respectively. The peak systolic velocities of other arteries are within normal limit bilaterally. Collateral Circulation: No significant collateral circulation . IMPRESSION: 1. Diffuse atherosclerosis changes of both lower limb arteries, more evident at popliteal and infrapopliteal arteries associated with bilateral mild chronic ischemia more on the right side. 2. Mild stenosis at right politeal artery. 3. Low TBI on right side and low SETH on left side 4. Clinical correlation and further evaluation with CT Angiography are advised. Electronically signed by Juan Merchant 05-27-2025 12:50 PM Patient History Medical History (Updated 05/30/25 @ 16:15 by Erick Ceja PA-C) Hypothyroidism Mitral valve stenosis Diabetic retinopathy Primary hyperparathyroidism T2DM (type 2 diabetes mellitus) HLD (hyperlipidemia) HTN (hypertension) Surgical History (Updated 05/30/25 @ 16:15 by Erick Ceja PA-C) Hx of tonsillectomy Hx of appendectomy Hx of parathyroidectomy R superior History of partial colectomy R hemicolectomy with ileocolic anastomosis Hx of endoscopic retrograde cholangiopancreatography Hx of cataract extraction Hx of cholecystectomy 04/2024 lap converted to open 2/2 serosal tear of stomach Family History (Updated 05/26/25 @ 16:39 by Adela Santamaria PA-C) Mother Colorectal cancer Diabetes Father Colorectal cancer Sister Cancer lymphoma Sister Myocardial infarction Sister Rheumatoid arthritis Social History Smoking Status: Former smoker Tobacco Type: Cigarettes Second Hand Exposure: No; Do You Dip or Chew Tobacco: No; Tobacco Cessation Education Requested by Patient: No Hx Alcohol Use: No Hx Substance Use: No Preferred Language: Omani Communication Ability: Effective Extractor Puller Required: No Beliefs That Will Affect Care: None Current Living Situation: Spouse Current Living Situation Comment: lives at home with Other Information That Helps Us Care for You: No Feels Safe at Home: Yes Safety Concerns: Feels Safe At This Time Assistive Devices: Cane and Glasses Assistive Devices Comment: cane/glasses Physical Exam 2 Physical Exam: Physical Exam: Constitutional: Well-developed, well-nourished, healthy-appearing, normal weight Psych: Awake, alert, and oriented 3 with normal affect and mood. Memory appears grossly intact, resting comfortably on examination Skin: No evidence of edema, erythema or skin breakdown. Well-healed lumbosacral surgical incision. No rashes, lesions, ulcers, or induration noted. Musculoskeletal: Head is normocephalic and atraumatic, gait deferred as patient is unable to ambulate without assistance and has not been trialed in walking boot. Lumbar: Lordotic curve: Loss of lumbar Lordosis Range of motion is not decreased Tenderness: Nontender over the axial midline Facet provocation: Negative bilaterally Straight leg raise: Negative bilaterally Strength: Strength is equal bilaterally with 5 out of 5 strength in all planes Sensation of lower extremities: Intact bilaterally. Patient does have increased sensitivity on the right foot at the area of the open sores and dressings. Pedal pulses are intact and equal bilaterally. Deep tendon reflexes: Rated at 2/4 in bilateral patellar and Achilles tendons Myofascial spasm: No appreciable lumbar spasm. No discrete trigger points noted Greater trochanters: Nontender bilaterally Sacroiliac joints: Nontender bilaterally. Negative Gaenslen's test bilaterally. Negative FADIR. Negative TK. Negative compression test. No appreciable leg length discrepancy Pathologic reflexes noted: None Neuro: No focal neurological deficits appreciated. Results (Pain Clinic) Previous Records Review Previous Records: personally reviewed by me
--- NOTE | 2025-05-30 16:31 | Hospitalist Progress Note ---
Date of Service May 30, 2025 Assessment & Plan (1) Cellulitis of left lower extremity: (2) T2DM (type 2 diabetes mellitus): (3) Diabetic neuropathy: (4) HTN (hypertension): (5) Primary hyperparathyroidism: (6) HLD (hyperlipidemia): (7) Anemia: (8) Neutropenia: Plan This is an 84-year-old female with significant past medical history of T2DM, diabetic peripheral neuropathy, HTN, HLD, hypothyroidism, primary hyperparathyroidism, diabetic nonproliferative retinopathy, mild mitral valve stenosis, lumbar spinal stenosis who presents to ED secondary to multiple non healing L foot wounds with associated redness. #LLE Cellulitis 2/2 nonhealing L diabetic foot wounds, POA #Diabetic neuropathy, possible charcot arthropathy per ortho admitted to [facility] IV cefepime previously discontinued and transition to oral doxycycline consulted ortho Dr. Medrano - no surgical debridement necessary, highly suspicious of charcot arthropathy consult wound nurse for treatment/follow up - [place] w/ betadine, allow to dry, cover with optifoam, change daily MRSA swab if negative no indication for mrsa coverage given low risk Vascular Arterial duplex reviewed and discussed w/ Dr. Medrano and wound care - will likely need outpt follow up, will consult w/ vasc. surg. #Anemia, chronic Pt has been anemia since March of 2024 per epic review, lows of 8 after acute gallbladder surgery currently 9.6 and 29.2 anemia panel including iron profile, b12, folate unremarkable retic ct, [id number], tsh/t4, LDH reviewed peripheral smear reviewed: Peripheral smear for review:1. Normochromic/macrocytic red blood cells, markedly reduced numbers of cytologically unremarkable PMN leukocytes, unremarkable lymphocytes, unremarkable monocytes and unremarkable platelets are all seen.#2. Blasts, schistocytes and spherocytes are all not seen.#3. Although the cytologic signs of sepsis are not seen, it should be noted that this patient has severe neutropenia with an absolute neutrophile count of 0.81 x 10 to the ninth per liter.#4. The cause of this patient's absolute neutropenia is left for clinical correlation.#5. Review of the electronic medical record indicates the patient has unremarkable levels of vitamin B12, folate, and iron studies suggesting the patient's anemia is anemia of chronic disease. will likely need hematology referral as outpt, pt reports chronic fatigue, denie s s/sx of bleeding, last c scope was 4 years ago, pt continues to receive them due to strong family hx #Neutropenia pt with absolute neutrophil count low, present since 05/2024 post gallbladder surgery peripheral smear as above pt likely to need hematology referral as outpt #T2DM with neuropathy, retinopathy controlled for age, last a1c 7.7 in January, a1c this admission 8.1. lantus/novolog per protocol hold metformin, glimepiride #HTN chronic, stable, although BPs fluctuates continue atenolol and decrease enalapril dose 20mg--->10 mg hold HCTZ for now given hypercalc and known primary hyperparathyroidism pt previously follow endo in [place] who recommended discontinuing hctz, pt reports resuming it due to some lower ext edema #Hypercalcemia #Primary Hyperparathyroidism with hx of R superior parathyroidectomy in 2007 had follow [facility] at [place], last seen in 2019, recommend re establishing for monitoring of calcium levels avoid calcium supplements which can also be found in daily MVI #Chronic diarrhea: felt 2/2 hx of R hemicolectomy as well as last years gallbladder surgery, bowels always loose, was recently prescribe cholestyramine but didn't start yet she states some constipation now. Will observe Consult PT Trial low dose Cymbalta and Lyrica for severe neuropathic pain #DVT ppx: SQ Lovenox FULL CODE Admission and Anticipated Discharge Date Admission Date: May 26, 2025 Subjective Pt seen in follow up Having severe neuropathic pain in the lower extremities. Patient did not tolerate gabapentin in the past. Cymbalta and Lyrica were started in the hospital. Pain seems improved now, pt says she was able to get some sleep but still with pain. Pain management consulted. Again the redness in her lower extremities goes away when she is supine suggesting dependent rubor or Charcot inflammation as mentioned by orthopedics. At home she occasionally uses a cane but is finding that she needs to use a walker now due to the neuropathy. Currently no fever, chills, chest pain or shortness of breath, no abd. pain, n/v Discussed w/ wound care , and placed vasc. surg. consult Pt has a boot in her room from orthotics Review of Systems Review of Systems: All systems reviewed & are unremarkable except as noted in Subjective Physical Exam Physical Exam: General- adult female,WD/WN in NAD, chronic ill appearance Eyes- PERRL, EOMI, anicteric Lungs- clear to auscultation b/l Heart- regular rhythm; soft murmur Abdomen- normal bowel sounds, soft, nontender Extremities- Venous stasis both legs. Has several scattered diabetic ulcers on the extremities. L medial ankle/,L3rd distal toe, developing blister to lateral 4th toe, small blood bulla to distal 5th toe and lateral ankle wound None are draining or seem to be actively infected. Has erythema to both lower extremities but resolves when she is supine. Results & Data Results & Data Vital Signs (Past 12 Hours) Vital Signs Temp Pulse Pulse Resp BP Pulse Ox O2 Del Method 05/30/25 15:52 36.9 C 60 16 124/62 92 Room Air 05/30/25 12:00 36.7 C 59 L 20 108/65 94 Room Air 05/30/25 08:18 36.5 C 59 L 16 118/57 L 94 Room Air 05/30/25 07:10 60 Laboratory Results 05/30/25 05/30/25 05/30/25 Range/Units 13:11 08:08 05:42 WBC 5.59 (4.8-10.8) K/ul RBC 2.24 L (4.20-5.40) M/uL Hgb 8.1 L (12.0-16.0) g/dl Hct 24.3 L (37.0-47.0) % MCV 108.5 H (80.0-100.0) fL MCH 36.2 H (25.0-34.0) pg MCHC 33.3 (32.0-36.0) g/dL RDW Std Deviation 62.9 H (36.4-46.3) fL RDW Coeff of Lynda 15.8 H (11.5-14.5) % Plt Count 194 (130-400) K/uL MPV 10.5 (9.4-12.4) fL Neutrophils % (Manual) 12 % Lymphocytes % (Manual) 50 % Monocytes % (Manual) 2 % Eosinophils % (Manual) 2 % Basophils % (Manual) 1 % Neutrophils # (Manual) 0.67 L (1.40-6.50) K/uL Total Absolute Neuts 0.67 L* (1.4-6.5) K/uL Lymphocytes # (Manual) 2.80 (1.2-3.4) K/uL Total Abs Lymphocytes 4.64 H (1.2-3.4) K/uL Monocytes # (Manual) 0.11 (0.11-0.59) K/uL Eosinophils # (Manual) 0.11 (0-0.50) K/uL Basophils # (Manual) 0.06 (0-0.2) K/uL Large Granular Lymphs 33 % # Lrg Granular Lymphs 1.84 K/uL Polychromasia 1+ Sodium 137 (136-145) mmol/L Potassium 4.5 (3.5-5.1) mmol/L Chloride 107 (98-107) mmol/L Carbon Dioxide 26 (21-32) mmol/L Anion Gap 4 (3-11) BUN 38 H (6-23) mg/dl Creatinine 1.01 (0.6-1.2) mg/dl Est Cr Clr Drug Dosing 40.3 ml/min eGFR 54.89 BUN/Creatinine Ratio 37.6 H (10-20) Glucose 177 H (70-99(Fasting)) mg/dl POC Glucose 241 H 203 H (70-99) mg/dl Calcium 9.3 (8.6-10.3) mg/dl Phosphorus 3.6 (2.5-4.9) mg/dl Magnesium 1.8 (1.7-2.4) mg/dl 05/29/25 05/29/25 Range/Units 20:37 17:12 WBC (4.8-10.8) K/ul RBC (4.20-5.40) M/uL Hgb (12.0-16.0) g/dl Hct (37.0-47.0) % MCV (80.0-100.0) fL MCH (25.0-34.0) pg MCHC (32.0-36.0) g/dL RDW Std Deviation (36.4-46.3) fL RDW Coeff of Lynda (11.5-14.5) % Plt Count (130-400) K/uL MPV (9.4-12.4) fL Neutrophils % (Manual) % Lymphocytes % (Manual) % Monocytes % (Manual) % Eosinophils % (Manual) % Basophils % (Manual) % Neutrophils # (Manual) (1.40-6.50) K/uL Total Absolute Neuts (1.4-6.5) K/uL Lymphocytes # (Manual) (1.2-3.4) K/uL Total Abs Lymphocytes (1.2-3.4) K/uL Monocytes # (Manual) (0.11-0.59) K/uL Eosinophils # (Manual) (0-0.50) K/uL Basophils # (Manual) (0-0.2) K/uL Large Granular Lymphs % # Lrg Granular Lymphs K/uL Polychromasia Sodium (136-145) mmol/L Potassium (3.5-5.1) mmol/L Chloride (98-107) mmol/L Carbon Dioxide (21-32) mmol/L Anion Gap (3-11) BUN (6-23) mg/dl Creatinine (0.6-1.2) mg/dl Est Cr Clr Drug Dosing ml/min eGFR BUN/Creatinine Ratio (10-20) Glucose (70-99(Fasting)) mg/dl POC Glucose 216 H 140 H (70-99) mg/dl Calcium (8.6-10.3) mg/dl Phosphorus (2.5-4.9) mg/dl Magnesium (1.7-2.4) mg/dl Medications Administered Current Inpatient Medications Acetaminophen (Acetaminophen 325 Mg Tab) 650 mg PO Q4H PRN PRN Reason: Pain or Fever Stop: 06/25/25 18:41 Last Admin: 05/27/25 05:50 Dose: 650 mg Aspirin (Aspirin 81 Mg Ectab) 81 mg PO DAILY VAL Stop: 06/26/25 08:59 Last Admin: 05/30/25 08:34 Dose: 81 mg Atenolol (Atenolol 50 Mg Tablet) 100 mg PO DAILY VAL Stop: 06/26/25 08:59 Last Admin: 05/30/25 08:34 Dose: 100 mg Atorvastatin Calcium (Atorvastatin 40 Mg Tab) 40 mg PO HS VAL Stop: 06/25/25 20:59 Last Admin: 05/29/25 21:22 Dose: 40 mg Dextrose (Dextrose 50% 50 Ml Syringe) 25 - 50 ml IV UD PRN; Protocol PRN Reason: Hypoglycemia Protocol Stop: 06/25/25 18:41 Doxycycline Hyclate (Doxycycline Hyclate 100 Mg Cap) 100 mg PO BID VAL Stop: 06/04/25 20:59 Last Admin: 05/30/25 08:35 Dose: 100 mg Duloxetine HCl (Duloxetine Hcl 20 Mg Cap) 20 mg PO HS VAL Stop: 06/26/25 19:49 Last Admin: 05/29/25 21:22 Dose: 20 mg Enalapril Maleate (Enalapril Maleate 10 Mg Tab) 10 mg PO DAILY VAL Stop: 06/28/25 08:59 Last Admin: 05/30/25 08:34 Dose: 10 mg Enoxaparin Sodium (Enoxaparin Inj 40 Mg/0.4 Ml Syr) 40 mg SQ HS VAL Stop: 06/25/25 20:59 Last Admin: 05/29/25 21:22 Dose: 40 mg Famotidine (Famotidine 20 Mg Tab) 20 mg PO DAILY PRN PRN Reason: Heartburn Stop: 06/25/25 18:41 Glucagon (Glucagon For Inj 1 Mg Vial) 1 mg SQ UD PRN; Protocol PRN Reason: Hypoglycemia Protocol Stop: 06/25/25 18:41 Glucose (Glucose 40% Gel 15 Gm Tube) 15 - 30 gm PO UD PRN; Protocol PRN Reason: Hypoglycemia Protocol Stop: 06/25/25 18:41 Glucose (Glucose 10 Tab/Tube) 4 - 8 tab PO UD PRN; Protocol PRN Reason: Hypoglycemia Protocol Stop: 06/25/25 18:41 Insulin Aspart (Insulin Aspart Per Unit Charge) 0 units SC ACHS VAL Stop: 06/25/25 20:59 Last Admin: 05/30/25 13:12 Dose: 4 units Insulin Glargine (Lantus Per Unit Charge) 0 - 6 units SQ BID VAL Stop: 06/25/25 20:59 Last Admin: 05/30/25 08:47 Dose: 6 units Lactobacillus Acidophilus (Advanced Probiotic 625 Mg Capsule) 1,250 mg PO DAILY VAL Stop: 06/26/25 08:59 Last Admin: 05/30/25 08:34 Dose: 1,250 mg Levothyroxine Sodium (Levothyroxine Sodium 75 Mcg Tablet) 75 mcg PO DAILYBB VAL Stop: 06/26/25 06:29 Last Admin: 05/30/25 05:31 Dose: 75 mcg Melatonin (Melatonin 3 Mg Tab) 3 mg PO HS PRN PRN Reason: Sleep Stop: 06/25/25 18:41 Last Admin: 05/29/25 21:22 Dose: 3 mg Miscellaneous (Carbohydrates For Hypoglycemia ) 15 - 30 gm PO UD PRN PRN Reason: Hypoglycemia Protocol Stop: 06/25/25 18:41 Ondansetron HCl (Ondansetron Inj 2 Mg/Ml 2 Ml Vial) 4 mg IV Q6H PRN PRN Reason: Nausea Stop: 06/25/25 18:41 Oxycodone HCl (Oxycodone Hcl Ir 5 Mg Tab (Immediate Release)) 5 mg PO Q4H PRN PRN Reason: Mod-Sev Pain (Scale 4-10) Stop: 06/09/25 18:41 Last Admin: 05/30/25 13:09 Dose: 5 mg Polyethylene Glycol (Polyethylene (Miralax) 17 Gm Pack) 17 gm PO DAILY PRN PRN Reason: Constipation Stop: 06/25/25 18:41 Last Admin: 05/30/25 08:46 Dose: 17 gm Pregabalin (Pregabalin 25 Mg Cap) 25 mg PO BID [facility] Stop: 06/27/25 20:59 Last Admin: 05/30/25 08:47 Dose: 25 mg Sennosides (Senna 8.6 Mg Tab) 8.6 mg PO QAM [facility] Stop: 06/29/25 08:59 Last Admin: 05/30/25 08:47 Dose: 8.6 mg
[2025-05-31 06:53] LABS: Hematocrit (blood only) 25.5 % (37.0-47.0); Hemoglobin 8.4 g/dl (12.0-16.0); Mean Corpuscular Hemoglobin 36.1 pg (25.0-34.0); Mean Corpuscular Volume 109.4 fL (80.0-100.0); Platelet Count 207 K/uL (130-400); RDW Standard Deviation 63.9 fL (36.4-46.3); Red Blood Count 2.33 M/uL (4.20-5.40); White Blood Count 5.91 K/ul (4.8-10.8)
[2025-05-31 07:22] LABS: Anion Gap 4.0 (3-11); Blood Urea Nitrogen 36.0 mg/dl (6-23); Calcium 9.4 mg/dl (8.6-10.3); Carbon Dioxide 27.0 mmol/L (21-32); Chloride 107.0 mmol/L (98-107); Creatinine Clr Calc Pharmacy 46.3 ml/min; Glucose 166.0 mg/dl (70-99(Fasting)); Magnesium 1.8 mg/dl (1.7-2.4); Potassium 4.5 mmol/L (3.5-5.1); Sodium 138.0 mmol/L (136-145)
[2025-05-31 07:52] LABS: ALC (manual) 5.14 K/uL (1.2-3.4); ANC (manual) 0.24 K/uL (1.4-6.5); Large Granular Lymph # (manua 2.07 K/uL; Large Granular Lymph % (manual) 35 %; Polychromasia 1+
--- NOTE | 2025-05-31 10:03 | Communication Note ---
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 She does have neuropathic pain in both feet but her left foot has now worsened and keeps her awake at night. Her non invasives show multiple stenosis in her left sfa and popliteal and possibly a short left popliteal occlusion. Her neuropathic pain makes this a little difficult but with the waveforms of the arterial study, the dependent rubor, and wounds of her foot, I believe arteriography with possible intervention may be needed. I am out of town next week, so I consulted Dr Perdomo. He will be seeing her and evaluate her for her PAD. Thank you very much for letting us participate in the care of this patient.
--- NOTE | 2025-05-31 11:20 | Hospitalist Progress Note ---
Date of Service May 31, 2025 Assessment & Plan (1) Cellulitis of left lower extremity: (2) T2DM (type 2 diabetes mellitus): (3) Diabetic neuropathy: (4) HTN (hypertension): (5) Primary hyperparathyroidism: (6) HLD (hyperlipidemia): (7) Anemia: (8) Neutropenia: Plan This is an 84-year-old female with significant past medical history of T2DM, diabetic peripheral neuropathy, HTN, HLD, hypothyroidism, primary hyperparathyroidism, diabetic nonproliferative retinopathy, mild mitral valve stenosis, lumbar spinal stenosis who presents to ED secondary to multiple non healing L foot wounds with associated redness. 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 Medrano - no surgical debridement necessary, highly suspicious of charcot arthropathy consult wound nurse for treatment/follow up - [place] w/ betadine, allow to dry, cover with optifoam, change daily MRSA swab if negative no indication for mrsa coverage given low risk Vascular Arterial duplex reviewed and discussed w/ Dr. Medrano and wound care - will likely need outpt follow up, will consult w/ vasc. surg. - Discussed w/ vasc. surg. Dr. Perdomo - plan for procedure on Tuesday #Anemia, chronic Pt has been anemia since March of 2024 per [facility] review, lows of 8 after acute gallbladder surgery currently 9.6 and 29.2 anemia panel including iron profile, b12, folate unremarkable retic ct, [id number], tsh/t4, LDH reviewed peripheral smear reviewed: Peripheral smear for review:1. Normochromic/macrocytic red blood cells, markedly reduced numbers of cytologically unremarkable PMN leukocytes, unremarkable lym phocytes, unremarkable monocytes and unremarkable platelets are all seen.#2. Blasts, schistocytes and spherocytes are all not seen.#3. Although the cytologic signs of sepsis are not seen, it should be noted that this patient has severe neutropenia with an absolute neutrophile count of 0.81 x 10 to the ninth per liter.#4. The cause of this patient's absolute neutropenia is left for clinical correlation.#5. Review of the electronic medical record indicates the patient has unremarkable levels of vitamin B12, folate, and iron studies suggesting the patient's anemia is anemia of chronic disease. will likely need hematology referral as outpt, pt reports chronic fatigue, denies s/sx of bleeding, last c scope was 4 years ago, pt continues to receive them due to strong family hx #Neutropenia pt with absolute neutrophil count low, present since 05/2024 post gallbladder surgery peripheral smear as above pt likely to need hematology referral as outpt #T2DM with neuropathy, retinopathy controlled for age, last a1c 7.7 in January, A1c this admission 8.1. lantus/novolog per protocol hold metformin, glimepiride #HTN chronic, stable, although BPs fluctuates continue atenolol and decrease enalapril dose 20mg--->10 mg hold HCTZ for now given hypercalc and known primary hyperparathyroidism pt previously follow endo in [place] who recommended discontinuing hctz, pt reports resuming it due to some lower ext edema #Hypercalcemia #Primary Hyperparathyroidism with hx of R superior parathyroidectomy in 2007 had follow [facility] at [place], last seen in 2019, recommend re establishing for monitoring of calcium levels avoid calcium supplements which can also be found in daily MVI #Chronic diarrhea: felt 2/2 hx of R hemicolectomy as well as last years gallbladder surgery, bowels always loose, was recently prescribe cholestyramine but didn't start yet she states some constipation now. Will observe Consult PT Trial low dose Cymbalta and Lyrica for severe neuropathic pain #DVT ppx: SQ Lovenox FULL CODE Admission and Anticipated Discharge Date Admission Date: May 26, 2025 Subjective Pt seen in follow up Having severe neuropathic pain in the lower extremities. Patient did not tolerate gabapentin in the past. Cymbalta and Lyrica were started in the hospital. Pain seems improved now, pt says she was able to get some sleep but still with pain. Pain management consulted. Again the redness in her lower extremities goes away when she is supine suggesting dependent rubor or Charcot inflammation as mentioned by orthopedics. At home she occasionally uses a cane but is finding that she needs to use a walker now due to the neuropathy. Arterial duplex also abnormal - and vasc. s urgery consulted - discussed w/ Dr. Perdomo at the bedside - plan for procedure on Tuesday Currently no fever, chills, chest pain or shortness of breath, no abd. pain, n/v wound care consulted Pt has a boot in her room from orthotics Review of Systems Review of Systems: All systems reviewed & are unremarkable except as noted in Subjective Physical Exam Physical Exam: General- adult female,WD/WN in NAD, chronic ill appearance Eyes- PERRL, EOMI, anicteric Lungs- clear to auscultation b/l Heart- regular rhythm; soft murmur Abdomen- normal bowel sounds, soft, nontender Extremities- Venous stasis both legs. Has several scattered diabetic ulcers on the extremities. L medial ankle/,L3rd distal toe, developing blister to lateral 4th toe, small blood bulla to distal 5th toe and lateral ankle wound None are draining or seem to be actively infected. Has erythema to both lower extremities but resolves when she is supine. Results & Data Results & Data Vital Signs (Past 12 Hours) Vital Signs Temp Pulse Pulse Resp BP BP Pulse Ox 05/31/25 11:10 36.8 C 60 18 173/73 H 95 05/31/25 07:39 36.7 C 53 L 18 111/57 L 95 05/31/25 07:33 55 L 05/31/25 02:27 36.5 C 58 L 16 135/61 92 O2 Del Method 05/31/25 11:10 Room Air 05/31/25 07:39 Room Air 05/31/25 07:33 05/31/25 02:27 Room Air Laboratory Results 05/31/25 05/31/25 05/30/25 Range/Units 08:00 06:24 20:09 WBC 5.91 (4.8-10.8) K/ul RBC 2.33 L (4.20-5.40) M/uL Hgb 8.4 L (12.0-16.0) g/dl Hct 25.5 L (37.0-47.0) % MCV 109.4 H (80.0-100.0) fL MCH 36.1 H (25.0-34.0) pg MCHC 32.9 (32.0-36.0) g/dL RDW Std Deviation 63.9 H (36.4-46.3) fL RDW Coeff of Lynda 16.1 H (11.5-14.5) % Plt Count 207 (130-400) K/uL MPV 10.4 (9.4-12.4) fL Neutrophils % (Manual) 4 % Lymphocytes % (Manual) 52 % Monocytes % (Manual) 6 % Eosinophils % (Manual) 2 % Basophils % (Manual) 1 % Neutrophils # (Manual) 0.24 L (1.40-6.50) K/uL Total Absolute Neuts 0.24 L* (1.4-6.5) K/uL Lymphocytes # (Manual) 3.07 (1.2-3.4) K/uL Total Abs Lymphocytes 5.14 H (1.2-3.4) K/uL Monocytes # (Manual) 0.35 (0.11-0.59) K/uL Eosinophils # (Manual) 0.12 (0-0.50) K/uL Basophils # (Manual) 0.06 (0-0.2) K/uL Large Granular Lymphs 35 % # Lrg Granular Lymphs 2.07 K/uL Polychromasia 1+ Sodium 138 (136-145) mmol/L Potassium 4.5 (3.5-5.1) mmol/L Chloride 107 (98-107) mmol/L Carbon Dioxide 27 (21-32) mmol/L Anion Gap 4 (3-11) BUN 36 H (6-23) mg/dl Creatinine 0.88 (0.6-1.2) mg/dl Est Cr Clr Drug Dosing 46.3 ml/min eGFR 64.76 BUN/Creatinine Ratio 40.9 H (10-20) Glucose 166 H (70-99(Fasting)) mg/dl POC Glucose 160 H 133 H (70-99) mg/dl Calcium 9.4 (8.6-10.3) mg/dl Phosphorus 3.6 (2.5-4.9) mg/dl Magnesium 1.8 (1.7-2.4) mg/dl 05/30/25 05/30/25 Range/Units 16:48 13:11 WBC (4.8-10.8) K/ul RBC (4.20-5.40) M/uL Hgb (12.0-16.0) g/dl Hct (37.0-47.0) % MCV (80.0-100.0) fL MCH (25.0-34.0) pg MCHC (32.0-36.0) g/dL RDW Std Deviation (36.4-46.3) fL RDW Coeff of Lynda (11.5-14.5) % Plt Count (130-400) K/uL MPV (9.4-12.4) fL Neutrophils % (Manual) % Lymphocytes % (Manual) % Monocytes % (Manual) % Eosinophils % (Manual) % Basophils % (Manual) % Neutrophils # (Manual) (1.40-6.50) K/uL Total Absolute Neuts (1.4-6.5) K/uL Lymphocytes # (Manual) (1.2-3.4) K/uL Total Abs Lymphocytes (1.2-3.4) K/uL Monocytes # (Manual) (0.11-0.59) K/uL Eosinophils # (Manual) (0-0.50) K/uL Basophils # (Manual) (0-0.2) K/uL Large Granular Lymphs % # Lrg Granular Lymphs K/uL Polychromasia Sodium (136-145) mmol/L Potassium (3.5-5.1) mmol/L Chloride (98-107) mmol/L Carbon Dioxide (21-32) mmol/L Anion Gap (3-11) BUN (6-23) mg/dl Creatinine (0.6-1.2) mg/dl Est Cr Clr Drug Dosing ml/min eGFR BUN/Creatinine Ratio (10-20) Glucose (70-99(Fasting)) mg/dl POC Glucose 151 H 241 H (70-99) mg/dl Calcium (8.6-10.3) mg/dl Phosphorus (2.5-4.9) mg/dl Magnesium (1.7-2.4) mg/dl Medications Administered Current Inpatient Medications Acetaminophen (Acetaminophen 325 Mg Tab) 650 mg PO Q4H PRN PRN Reason: Pain or Fever Stop: 06/25/25 18:41 Last Admin: 05/27/25 05:50 Dose: 650 mg Aspirin (Aspirin 81 Mg Ectab) 81 mg PO DAILY VAL Stop: 06/26/25 08:59 Last Admin: 05/31/25 09:45 Dose: 81 mg Atenolol (Atenolol 50 Mg Tablet) 100 mg PO DAILY VAL Stop: 06/26/25 08:59 Last Admin: 05/31/25 09:44 Dose: 100 mg Atorvastatin Calcium (Atorvastatin 40 Mg Tab) 40 mg PO HS VAL Stop: 06/25/25 20:59 Last Admin: 05/30/25 20:45 Dose: 40 mg Dextrose (Dextrose 50% 50 Ml Syringe) 25 - 50 ml IV UD PRN; Protocol PRN Reason: Hypoglycemia Protocol Stop: 06/25/25 18:41 Doxycycline Hyclate (Doxycycline Hyclate 100 Mg Cap) 100 mg PO BID VAL Stop: 06/04/25 20:59 Last Admin: 05/31/25 09:45 Dose: 100 mg Duloxetine HCl (Duloxetine Hcl 20 Mg Cap) 20 mg PO HS VAL Stop: 06/26/25 19:49 Last Admin: 05/30/25 20:45 Dose: 20 mg Enalapril Maleate (Enalapril Maleate 10 Mg Tab) 10 mg PO DAILY VAL Stop: 06/28/25 08:59 Last Admin: 05/31/25 09:44 Dose: 10 mg Enoxaparin Sodium (Enoxaparin Inj 40 Mg/0.4 Ml Syr) 40 mg SQ HS VAL Stop: 06/25/25 20:59 Last Admin: 05/30/25 20:44 Dose: 40 mg Famotidine (Famotidine 20 Mg Tab) 20 mg PO DAILY PRN PRN Reason: Heartburn Stop: 06/25/25 18:41 Glucagon (Glucagon For Inj 1 Mg Vial) 1 mg SQ UD PRN; Protocol PRN Reason: Hypoglycemia Protocol Stop: 06/25/25 18:41 Glucose (Glucose 40% Gel 15 Gm Tube) 15 - 30 gm PO UD PRN; Protocol PRN Reason: Hypoglycemia Protocol Stop: 06/25/25 18:41 Glucose (Glucose 10 Tab/Tube) 4 - 8 tab PO UD PRN; Protocol PRN Reason: Hypoglycemia Protocol Stop: 06/25/25 18:41 Insulin Aspart (Insulin Aspart Per Unit Charge) 0 units SC ACHS VAL Stop: 06/25/25 20:59 Last Admin: 05/31/25 09:45 Dose: 4 units Insulin Glargine (Lantus Per Unit Charge) 0 - 6 units SQ BID VAL Stop: 06/25/25 20:59 Last Admin: 05/31/25 09:47 Dose: 3 units Lactobacillus Acidophilus (Advanced Probiotic 625 Mg Capsule) 1,250 mg PO DAILY VAL Stop: 06/26/25 08:59 Last Admin: 05/31/25 09:47 Dose: 1,250 mg Levothyroxine Sodium (Levothyroxine Sodium 75 Mcg Tablet) 75 mcg PO DAILYBB VAL Stop: 06/26/25 06:29 Last Admin: 05/31/25 05:52 Dose: 75 mcg Melatonin (Melatonin 3 Mg Tab) 3 mg PO HS PRN PRN Reason: Sleep Stop: 06/25/25 18:41 Last Admin: 05/30/25 20:43 Dose: 3 mg Miscellaneous (Carbohydrates For Hypoglycemia ) 15 - 30 gm PO UD PRN PRN Reason: Hypoglycemia Protocol Stop: 06/25/25 18:41 Ondansetron HCl (Ondansetron Inj 2 Mg/Ml 2 Ml Vial) 4 mg IV Q6H PRN PRN Reason: Nausea Stop: 06/25/25 18:41 Oxycodone HCl (Oxycodone Hcl Ir 5 Mg Tab (Immediate Release)) 5 mg PO Q4H PRN PRN Reason: Mod-Sev Pain (Scale 4-10) Stop: 06/09/25 18:41 Last Admin: 05/31/25 05:52 Dose: 5 mg Polyethylene Glycol (Polyethylene (Miralax) 17 Gm Pack) 17 gm PO DAILY PRN PRN Reason: Constipation Stop: 06/25/25 18:41 Last Admin: 05/30/25 08:46 Dose: 17 gm Pregabalin (Pregabalin 25 Mg Cap) 25 mg PO BID [facility] Stop: 06/27/25 20:59 Last Admin: 05/31/25 09:45 Dose: 25 mg Sennosides (Senna 8.6 Mg Tab) 8.6 mg PO QAM [facility] Stop: 06/29/25 08:59 Last Admin: 05/31/25 09:48 Dose: Not Given
--- NOTE | 2025-05-31 11:58 | Ultrasound Report ---
ULTRASOUND OF THE ABDOMINAL AORTA CLINICAL HISTORY: Atherosclerotic vascular disease. Peripheral arterial disease. Foot ulcers. COMPARISON STUDY: Abdominal CT dated 05/07/2024. TECHNIQUE: Multiple mack scale, color Doppler, and spectral Doppler sonograms of the abdominal aorta and iliac arteries are performed. Images are reviewed in the transverse and longitudinal planes. FINDINGS: There is moderate to advanced atherosclerotic calcification and irregularity noted throughout the abd ominal aorta. The proximal abdominal aorta measures 1.9 x 1.9 cm (AP x transverse), the mid abdominal aorta measures 1.5 x 1.5 cm, and the distal abdominal aorta measures 1.5 x 1.4 cm. The right common iliac artery measures up to 1.0 cm and the left common iliac artery measures up to 0.8 cm. Normal braxton w and spectral Doppler waveforms are seen within the aorta. Velocities within the abdominal aorta ashish sure up to 112 cm/s. IMPRESSION: 1. Atherosclerotic plaque with no sonographic evidence of abdominal aortic aneurysm. 2. The abdominal aorta and iliac arteries are patent. ACT 112: Negative or not required by law. Electronically signed by: Erick Stratton M.D. 05/31/2025 11:57 AM
--- NOTE | 2025-05-31 14:03 | Vascular Medicine Consultation ---
Date of Consultation May 31, 2025 Assessment & Plan (1) Peripheral vascular disease of lower extremity with ulceration: She has clinical and radiographic evidence of significant peripheral vascular disease. Given the difficult to heal ulcerations as well as the exertional pain in her left leg I think it is worth putting her through an angiogram to see if there are lesions that can be intervened upon percutaneously or possibly with open reconstruction. I discussed all of this with her and her family. She would like to proceed. I will plan a left lower extremity diagnostic angiogram via right femoral access for Tuesday, June 03, 2025. If we can intervene upon any identified lesions we will. The risk goals and alternatives including not limited to the risks of bleeding, recurrence, the need for further procedures as well as ultimately limb loss were discussed with the patient understands the seriousness of the situation and chooses to proceed. All questions were answered. History of Present Illness Reason for Consultation: Peripheral vascular disease, nonhealing wounds left lower extremity Attending Physician: David Lewis MD History of Present Illness Asked to evaluate this 84-year-old female with a several year history of exertional left leg pain as well as slow to heal recurrent superficial ulcerati ons of the left foot. She was admitted recently with erythema and evidence of cellulitis which is improved on IV antibiotics. I met with her her [id number] and her granddaughter. She describes a history of exertional pain in the left calf that has been present for the last couple of years. Her ambulation is mostly limited by some unsteadiness from her chronic back pain. She walks using a cane. It is difficult for her to quantify how far she can walk given these other limitations. She underwent duplex scanning of her lower extremities earlier this week demonstrating diffuse atherosclerosis in both lower extremities with an ankle-brachial index on the left of 0.73. She does not describe any prior cardiovascular events or interventions. She has a very remote history of smoking (40 years ago). She underwent open cholecystectomy about a year ago and was in the hospital for about 10 to 11 days but seems to have recovered from this quite nicely. She has undergone previous colon resection as well. Allergies Allergy/AdvReac Type Severity Reaction Status Date / Time No Known Allergies Allergy Unknown Verified 05/26/25 16:00 Home Medications Medication Instructions Recorded Confirmed Type aspirin 81 mg tablet,delayed 81 mg PO DAILY 05/26/25 05/26/25 History release atenolol 100 mg tablet 100 mg PO DAILY 05/26/25 05/26/25 History atorvastatin 40 mg tablet 40 mg PO HS 05/26/25 05/26/25 History benazepril 40 mg tablet 40 mg PO DAILY 05/26/25 05/26/25 History cholestyramine (with sugar) 4 gram 1 ea PO BID 05/26/25 05/26/25 History powder for susp in a packet glimepiride 4 mg tablet 4 mg PO DAILYBB 05/26/25 05/26/25 History hydrochlorothiazide 25 mg tablet 25 mg PO DAILY 05/26/25 05/26/25 History levothyroxine 75 mcg tablet 75 mcg PO DAILYBB 05/26/25 05/26/25 History metformin 500 mg tablet,extended 1,000 mg PO BID 05/26/25 05/26/25 History release 24 hr multivitamin 1 tab PO DAILY 05/26/25 05/26/25 History vit C 250 mg-vit E 90 mg-zinc 40 1 tab PO BID 05/26/25 05/26/25 History mg-copper 1 [id number] capsule (PreserVision AREDS-2) Patient History Medical History (Updated 05/31/25 @ 11:41 by Akira Perdomo MD) Hypothyroidism Mitral valve stenosis Diabetic retinopathy Primary hyperparathyroidism T2DM (type 2 diabetes mellitus) HLD (hyperlipidemia) HTN (hypertension) Surgical History (Updated 05/30/25 @ 16:15 by CRISTY ParkerC) Hx of tonsillectomy Hx of appendectomy Hx of parathyroidectomy R superior History of partial colectomy R hemicolectomy with ileocolic anastomosis Hx of endoscopic retrograde cholangiopancreatography Hx of cataract extraction Hx of cholecystectomy 04/2024 lap converted to open 2/2 serosal tear of stomach Family History (Updated 05/26/25 @ 16:39 by CRISTY HollingsworthC) Mother Colorectal cancer Diabetes Father Colorectal cancer Sister Cancer lymphoma Sister Myocardial infarction Sister Rheumatoid arthritis Social History Smoking Status: Former smoker Tobacco Type: Cigarettes Second Hand Exposure: No; Do You Dip or Chew Tobacco: No; Tobacco Cessation Education Requested by Patient: No Hx Alcohol Use: No Hx Substance Use: No Preferred Language: Greek Communication Ability: Effective Bridge Inspector Required: No Beliefs That Will Affect Care: None Current Living Situation: Spouse Current Living Situation Comment: lives at home with Other Information That Helps Us Care for You: No Feels Safe at Home: Yes Safety Concerns: Feels Safe At This Time Assistive Devices: Cane and Glasses Assistive Devices Comment: cane/glasses Physical Exam Physical Exam: Abdomen is soft and nontender with well-healed midline and right subcostal incisions. Femoral pulses are strong and equal as are her radial pulses. I cannot palpate any pulses in either foot. Doppler flow on the right is biphasic and on the left it is monophasic at the level of the pedal vessels. It is very difficult to find a right dorsalis pedis signal. There are some superficial ulcerations that are currently covered with bandages as well as one that I can see on her left fifth toe. The erythema according to her and her family has significantly improved since admission. Results & Data Vital Signs (Past 12 Hours) Vital Signs Temp Pulse Pulse Resp BP BP Pulse Ox 05/31/25 11:10 36.8 C 60 18 173/73 H 95 05/31/25 07:39 36.7 C 53 L 18 111/57 L 95 05/31/25 07:33 55 L 05/31/25 02:27 36.5 C 58 L 16 135/61 92 O2 Del Method 05/31/25 11:10 Room Air 05/31/25 07:39 Room Air 05/31/25 07:33 05/31/25 02:27 Room Air PG Care Time/CCT Total # of Minutes Spent Total Time Spent with Patient: Total time spent is greater than 50% in coordination of care (as documented) at patient's floor/unit and/or counseling patient: Coding Level of Care Code 04231 INT INP/OBS CARE 3/75MIN Diagnoses Peripheral vascular disease of lower extremity with ulceration I73.9; L97.909
--- NOTE | 2025-06-01 13:39 | Hospitalist Progress Note ---
Date of Service June 01, 2025 Assessment & Plan (1) Cellulitis of left lower extremity: (2) T2DM (type 2 diabetes mellitus): (3) Diabetic neuropathy: (4) HTN (hypertension): (5) Primary hyperparathyroidism: (6) HLD (hyperlipidemia): (7) Anemia: (8) Neutropenia: Plan This is an 84-year-old female with significant past medical history of T2DM, diabetic peripheral neuropathy, HTN, HLD, hypothyroidism, primary hyperparathyroidism, diabetic nonproliferative retinopathy, mild mitral valve stenosis, lumbar spinal stenosis who presents to ED secondary to multiple non healing L foot wounds with associated redness. 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 Medrano - no surgical debridement necessary, highly suspicious of charcot arthropathy consult wound nurse for treatment/follow up - [place] w/ betadine, allow to dry, cover with optifoam, change daily MRSA swab if negative no indication for mrsa coverage given low risk Vascular Arterial duplex reviewed ans consulted w/ vasc. surg. - Discussed w/ vasc. surg. Dr. Perdomo - plan for procedure on Tuesday #Anemia, chronic Pt has been anemia since March of 2024 per epic review, lows of 8 after acute gallbladder surgery currently 9.6 and 29.2 anemia panel including iron profile, b12, folate unremarkable retic ct, [id number], tsh/t4, LDH reviewed peripheral smear reviewed: Peripheral smear for review:1. Normochromic/macrocytic red blood cells, markedly reduced numbers of cytologically unremarkable PMN leukocytes, unremarkable lymphocytes, unremarkable monocytes and unremarkable platelets are all seen.#2. Blasts, schistocytes and spherocytes are all not seen.#3. Although the cytologic signs of sepsis are not seen, it should be noted that this patient has severe neutropenia with an absolute neutrophile count of 0.81 x 10 to the ninth per liter.#4. The cause of this patient's absolute neutropenia is left for clinical correlation.#5. Review of the electronic medical record indicates the patient has unremarkable levels of vitamin B12, folate, and iron studies suggesting the patient's anemia is anemia of chronic disease. will likely need hematology referral as outpt, pt reports chronic fatigue, denies s/sx of bleeding, last c scope was 4 years ago, pt continues to receive them due to strong family hx #Neutropenia pt with absolute neutrophil count low, present since 05/2024 post gallbladder surgery peripheral smear as above pt likely to need hematology referral as outpt #T2DM with neuropathy, retinopathy controlled for age, last a1c 7.7 in January, A1c this admission 8.1. lantus/novolog per protocol hold metformin, glimepiride #HTN chronic, stable, although BPs fluctuates continue atenolol and decrease enalapril dose 20mg--->10 mg hold HCTZ for now given hypercalc and known primary hyperparathyroidism pt previously follow endo in [place] who recommended discontinuing hctz, pt reports resuming it due to some lower ext edema #Hypercalcemia #Primary Hyperparathyroidism with hx of R superior parathyroidectomy in 2007 had follow [facility] at [place], last seen in 2019, recommend re establishing for monitoring of calcium levels avoid calcium supplements which can also be found in daily MVI #Chronic diarrhea: felt 2/2 hx of R hemicolectomy as well as last years gallbladder surgery, bowels always loose, was recently prescribe cholestyramine but didn't start yet she states some constipation now. Will observe Consult PT Trial low dose Cymbalta and Lyrica for severe neuropathic pain #DVT ppx: SQ Lovenox FULL CODE Admission and Anticipated Discharge Date Admission Date: May 26, 2025 Subjective Pt seen in follow up Having severe neuropathic pain in the lower extremities. Patient did not tolerate gabapentin in the past. Cymbalta and Lyrica were started in the hospital. Pain seems improved now. Again the redness in her lower extremities goes away when she is supine suggesting dependent rubor or Charcot inflammation as mentioned by orthopedics. At home she occasionally uses a cane but is finding that she needs to use a walker now due to the neuropathy. Arterial duplex also abnormal - and vasc. surgery consulted - discussed w/ Dr. Perdomo at the bedside yesterday - plan for procedure on Tuesday Currently no fever, chills, chest pain or shortness of breath, no abd. pain, n/v wound care consulted Pt has a boot in her room from orthotics Review of Systems Review of Systems: All systems reviewed & are unremarkable except as noted in Subjective Physical Exam Physical Exam: General- adult female,WD/WN in NAD, chronic ill appearance Eyes- PERRL, EOMI, anicteric Lungs- clear to auscultation b/l Heart- regular rhythm; soft murmur Abdomen- normal bowel sounds, soft, nontender Extremities- Venous stasis both legs. Has several scattered diabetic ulcers on the extremities. L medial ankle/,L3rd distal toe, developing blister to lateral 4th toe, small blood bulla to distal 5th toe and lateral ankle wound None are draining or seem to be actively infected. Has erythema to both lower extremities but resolves when she is supine. Results & Data Results & Data Vital Signs (Past 12 Hours) Vital Signs Temp Pulse Pulse Resp BP BP Pulse Ox 06/01/25 11:43 36.7 C 56 L 18 129/60 97 06/01/25 07:31 36.4 C L 54 L 18 118/65 98 06/01/25 07:09 52 L 06/01/25 03:46 36.6 C 54 L 16 158/69 H 94 O2 Del Method 06/01/25 11:43 Room Air 06/01/25 07:31 Room Air 06/01/25 07:09 06/01/25 03:46 Room Air Laboratory Results 06/01/25 06/01/25 05/31/25 Range/Units 12:12 08:07 20:15 POC Glucose 261 H 192 H 156 H (70-99) mg/dl 05/31/25 Range/Units 17:13 POC Glucose 174 H (70-99) mg/dl Medications Administered Current Inpatient Medications Acetaminophen (Acetaminophen 325 Mg Tab) 650 mg PO Q4H PRN PRN Reason: Pain or Fever Stop: 06/25/25 18:41 Last Admin: 05/31/25 14:21 Dose: 650 mg Aspirin (Aspirin 81 Mg Ectab) 81 mg PO DAILY VAL Stop: 06/26/25 08:59 Last Admin: 06/01/25 08:36 Dose: 81 mg Atenolol (Atenolol 50 Mg Tablet) 100 mg PO DAILY VAL Stop: 06/26/25 08:59 Last Admin: 06/01/25 08:35 Dose: 100 mg Atorvastatin Calcium (Atorvastatin 40 Mg Tab) 40 mg PO HS VAL Stop: 06/25/25 20:59 Last Admin: 05/31/25 21:40 Dose: 40 mg Dextrose (Dextrose 50% 50 Ml Syringe) 25 - 50 ml IV UD PRN; Protocol PRN Reason: Hypoglycemia Protocol Stop: 06/25/25 18:41 Doxycycline Hyclate (Doxycycline Hyclate 100 Mg Cap) 100 mg PO BID [facility] Stop: 06/04/25 20:59 Last Admin: 06/01/25 08:36 Dose: 100 mg Duloxetine HCl (Duloxetine Hcl 20 Mg Cap) 20 mg PO HS [facility] Stop: 06/26/25 19:49 Last Admin: 05/31/25 21:40 Dose: 20 mg Enalapril Maleate (Enalapril Maleate 10 Mg Tab) 10 mg PO DAILY VAL Stop: 06/28/25 08:59 Last Admin: 06/01/25 08:35 Dose: 10 mg Enoxaparin Sodium (Enoxaparin Inj 40 Mg/0.4 Ml Syr) 40 mg SQ HS [facility] Stop: 06/25/25 20:59 Last Admin: 05/31/25 21:38 Dose: 40 mg Famotidine (Famotidine 20 Mg Tab) 20 mg PO DAILY PRN PRN Reason: Heartburn Stop: 06/25/25 18:41 Glucagon (Glucagon For Inj 1 Mg Vial) 1 mg SQ UD PRN; Protocol PRN Reason: Hypoglycemia Protocol Stop: 06/25/25 18:41 Glucose (Glucose 40% Gel 15 Gm Tube) 15 - 30 gm PO UD PRN; Protocol PRN Reason: Hypoglycemia Protocol Stop: 06/25/25 18:41 Glucose (Glucose 10 Tab/Tube) 4 - 8 tab PO UD PRN; Protocol PRN Reason: Hypoglycemia Protocol Stop: 06/25/25 18:41 Insulin Aspart (Insulin Aspart Per Unit Charge) 0 units SC ACHS VAL Stop: 06/25/25 20:59 Last Admin: 06/01/25 12:43 Dose: 7 units Insulin Glargine (Lantus Per Unit Charge) 0 - 6 units SQ BID VAL Stop: 06/25/25 20:59 Last Admin: 06/01/25 08:42 Dose: 6 units Lactobacillus Acidophilus (Advanced Probiotic 625 Mg Capsule) 1,250 mg PO DAILY [facility] Stop: 06/26/25 08:59 Last Admin: 06/01/25 08:35 Dose: 1,250 mg Levothyroxine Sodium (Levothyroxine Sodium 75 Mcg Tablet) 75 mcg PO DAILYBB [facility] Stop: 06/26/25 06:29 Last Admin: 06/01/25 06:06 Dose: 75 mcg Melatonin (Melatonin 3 Mg Tab) 3 mg PO HS PRN PRN Reason: Sleep Stop: 06/25/25 18:41 Last Admin: 05/31/25 21:37 Dose: 3 mg Miscellaneous (Carbohydrates For Hypoglycemia ) 15 - 30 gm PO UD PRN PRN Reason: Hypoglycemia Protocol Stop: 06/25/25 18:41 Ondansetron HCl (Ondansetron Inj 2 Mg/Ml 2 Ml Vial) 4 mg IV Q6H PRN PRN Reason: Nausea Stop: 06/25/25 18:41 Oxycodone HCl (Oxycodone Hcl Ir 5 Mg Tab (Immediate Release)) 5 mg PO Q4H PRN PRN Reason: Mod-Sev Pain (Scale 4-10) Stop: 06/09/25 18:41 Last Admin: 05/31/25 21:37 Dose: 5 mg Polyethylene Glycol (Polyethylene (Miralax) 17 Gm Pack) 17 gm PO DAILY PRN PRN Reason: Constipation Stop: 06/25/25 18:41 Last Admin: 06/01/25 12:37 Dose: 17 gm Pregabalin (Pregabalin 25 Mg Cap) 25 mg PO BID [facility] Stop: 06/27/25 20:59 Last Admin: 06/01/25 08:37 Dose: 25 mg Sennosides (Senna 8.6 Mg Tab) 8.6 mg PO QAM [facility] Stop: 06/29/25 08:59 Last Admin: 06/01/25 08:36 Dose: 8.6 mg
[2025-06-01] MEDS ORDERED: LACTULOSE SYRUP 10 GM/15 ML BTL 960 ML PO STA (20:56)
[2025-06-01] MEDS: LACTULOSE SYRUP 20 GM/30 ML UDC PO STA (21:27)
--- NOTE | 2025-06-02 15:24 | Hospitalist Progress Note ---
Date of Service June 02, 2025 Assessment & Plan (1) Cellulitis of left lower extremity: (2) T2DM (type 2 diabetes mellitus): (3) Diabetic neuropathy: (4) HTN (hypertension): (5) Primary hyperparathyroidism: (6) HLD (hyperlipidemia): (7) Anemia: (8) Neutropenia: Plan This is an 84-year-old female with significant past medical history of T2DM, diabetic peripheral neuropathy, HTN, HLD, hypothyroidism, primary hyperparathyroidism, diabetic nonproliferative retinopathy, mild mitral valve stenosis, lumbar spinal stenosis who presents to ED secondary to multiple non healing L foot wounds with associated redness. 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 Medrano - no surgical debridement necessary, highly suspicious of charcot arthropathy consult wound nurse for treatment/follow up - [place] w/ betadine, allow to dry, cover with optifoam, change daily MRSA swab if negative no indication for mrsa coverage given low risk Vascular Arterial duplex reviewed and consulted w/ vasc. surg. - Discussed w/ vasc. surg. Dr. Perdomo - plan for procedure on Tuesday #Anemia, chronic Pt has been anemia since March of 2024 per epic review, lows of 8 after acute gallbladder surgery currently 9.6 and 29.2 anemia panel including iron profile, b12, folate unremarkable retic ct, [id number], tsh/t4, LDH reviewed peripheral smear reviewed: Peripheral smear for review:1. Normochromic/macrocytic red blood cells, markedly reduced numbers of cytologically unremarkable PMN leukocytes, unremarkable lymphocytes, unremarkable monocytes and unremarkable platelets are all seen.#2. Blasts, schistocytes and spherocytes are all not seen.#3. Although the cytologic signs of sepsis are not seen, it should be noted that this patient has severe neutropenia with an absolute neutrophile count of 0.81 x 10 to the ninth per liter.#4. The cause of this patient's absolute neutropenia is left for clinical correlation.#5. Review of the electronic medical record indicates the patient has unremarkable levels of vitamin B12, folate, and iron studies suggesting the patient's anemia is anemia of chronic disease. will likely need hematology referral as outpt, pt reports chronic fatigue, denies s/sx of bleeding, last c scope was 4 years ago, pt continues to receive them due to strong family hx #Neutropenia pt with absolute neutrophil count low, present since 05/2024 post gallbladder surgery peripheral smear as above pt likely to need hematology referral as outpt #T2DM with neuropathy, retinopathy controlled for age, last a1c 7.7 in January, A1c this admission 8.1. lantus/novolog per protocol hold metformin, glimepiride #HTN chronic, stable, although BPs fluctuates continue atenolol and decrease enalapril dose 20mg--->10 mg hold HCTZ for now given hypercalc and known primary hyperparathyroidism pt previously follow endo in [place] who recommended discontinuing hctz, pt reports resuming it due to some lower ext edema #Hypercalcemia #Primary Hyperparathyroidism with hx of R superior parathyroidectomy in 2007 had follow [facility] at [place], last seen in 2019, recommend re establishing for monitoring of calcium levels avoid calcium supplements which can also be found in daily MVI #Chronic diarrhea: felt 2/2 hx of R hemicolectomy as well as last years gallbladder surgery, bowels always loose, was recently prescribe cholestyramine but didn't start yet she states some constipation now. Will observe Consult PT Trial low dose Cymbalta and Lyrica for severe neuropathic pain #DVT ppx: SQ Lovenox FULL CODE Admission and Anticipated Discharge Date Admission Date: May 26, 2025 Subjective Pt seen in follow up Neuropathic pain improved on Cymbalta and Lyrica were started in the hospital. Pain seems improved now. Arterial duplex also abnormal - and vasc. surgery consulted - discussed w/ Dr. Perdomo - plan for procedure on Tuesday Currently no fever, chills, chest pain or shortness of breath, no abd. pain, n/v wound care consulted Pt has a boot in her room from orthotics Family at the bedside and updated Review of Systems Review of Systems: All systems reviewed & are unremarkable except as noted in Subjective Physical Exam Physical Exam: General- adult female,WD/WN in NAD, chronic ill appearance Eyes- PERRL, EOMI, anicteric Lungs- clear to auscultation b/l Heart- regular rhythm; soft murmur Abdomen- normal bowel sounds, soft, nontender Extremities- Venous stasis both legs. Has several scattered diabetic ulcers on the extremities. L medial ankle/,L3rd distal toe, developing blister to lateral 4th toe, small blood bulla to distal 5th toe and lateral ankle wound None are draining or seem to be actively infected. Has erythema to both lower extremities but resolves when she is supine. Results & Data Results & Data Vital Signs (Past 12 Hours) Vital Signs Temp Pulse Pulse Resp BP Pulse Ox O2 Del Method 06/02/25 14:59 57 L 06/02/25 12:35 36.3 C L 60 20 148/64 H 98 Room Air 06/02/25 07:52 36.4 C L 56 L 18 135/63 97 Room Air 06/02/25 07:14 53 L 06/02/25 03:35 36.9 C 58 L 18 159/62 H 97 Room Air Laboratory Results 06/02/25 06/02/25 06/01/25 Range/Units 12:05 08:13 20:02 POC Glucose 264 H 176 H 172 H (70-99) mg/dl 06/01/25 Range/Units 17:04 POC Glucose 168 H (70-99) mg/dl Medications Administered Current Inpatient Medications Acetaminophen (Acetaminophen 325 Mg Tab) 650 mg PO Q4H PRN PRN Reason: Pain or Fever Stop: 06/25/25 18:41 Last Admin: 06/01/25 14:30 Dose: 650 mg Aspirin (Aspirin 81 Mg Ectab) 81 mg PO DAILY VAL Stop: 06/26/25 08:59 Last Admin: 06/02/25 09:32 Dose: 81 mg Atenolol (Atenolol 50 Mg Tablet) 100 mg PO DAILY VAL Stop: 06/26/25 08:59 Last Admin: 06/02/25 09:32 Dose: 100 mg Atorvastatin Calcium (Atorvastatin 40 Mg Tab) 40 mg PO HS VAL Stop: 06/25/25 20:59 Last Admin: 06/01/25 20:45 Dose: 40 mg Dextrose (Dextrose 50% 50 Ml Syringe) 25 - 50 ml IV UD PRN; Protocol PRN Reason: Hypoglycemia Protocol Stop: 06/25/25 18:41 Doxycycline Hyclate (Doxycycline Hyclate 100 Mg Cap) 100 mg PO BID VAL Stop: 06/04/25 20:59 Last Admin: 06/02/25 09:32 Dose: 100 mg Duloxetine HCl (Duloxetine Hcl 20 Mg Cap) 20 mg PO HS [facility] Stop: 06/26/25 19:49 Last Admin: 06/01/25 20:46 Dose: 20 mg Enalapril Maleate (Enalapril Maleate 10 Mg Tab) 10 mg PO DAILY VAL Stop: 06/28/25 08:59 Last Admin: 06/02/25 09:32 Dose: 10 mg Enoxaparin Sodium (Enoxaparin Inj 40 Mg/0.4 Ml Syr) 40 mg SQ HS VAL Stop: 06/25/25 20:59 Last Admin: 06/01/25 20:45 Dose: 40 mg Famotidine (Famotidine 20 Mg Tab) 20 mg PO DAILY PRN PRN Reason: Heartburn Stop: 06/25/25 18:41 Glucagon (Glucagon For Inj 1 Mg Vial) 1 mg SQ UD PRN; Protocol PRN Reason: Hypoglycemia Protocol Stop: 06/25/25 18:41 Glucose (Glucose 40% Gel 15 Gm Tube) 15 - 30 gm PO UD PRN; Protocol PRN Reason: Hypoglycemia Protocol Stop: 06/25/25 18:41 Glucose (Glucose 10 Tab/Tube) 4 - 8 tab PO UD PRN; Protocol PRN Reason: Hypoglycemia Protocol Stop: 06/25/25 18:41 Insulin Aspart (Insulin Aspart Per Unit Charge) 0 units SC ACHS VAL Stop: 06/25/25 20:59 Last Admin: 06/02/25 13:14 Dose: 6 units Insulin Glargine (Lantus Per Unit Charge) 0 - 6 units SQ BID VAL Stop: 06/25/25 20:59 Last Admin: 06/02/25 09:38 Dose: 3 units Lactobacillus Acidophilus (Advanced Probiotic 625 Mg Capsule) 1,250 mg PO DAILY VAL Stop: 06/26/25 08:59 Last Admin: 06/02/25 09:32 Dose: 1,250 mg Levothyroxine Sodium (Levothyroxine Sodium 75 Mcg Tablet) 75 mcg PO DAILYBB VAL Stop: 06/26/25 06:29 Last Admin: 06/02/25 06:05 Dose: 75 mcg Melatonin (Melatonin 3 Mg Tab) 3 mg PO HS PRN PRN Reason: Sleep Stop: 06/25/25 18:41 Last Admin: 06/01/25 20:45 Dose: 3 mg Miscellaneous (Carbohydrates For Hypoglycemia ) 15 - 30 gm PO UD PRN PRN Reason: Hypoglycemia Protocol Stop: 06/25/25 18:41 Ondansetron HCl (Ondansetron Inj 2 Mg/Ml 2 Ml Vial) 4 mg IV Q6H PRN PRN Reason: Nausea Stop: 06/25/25 18:41 Oxycodone HCl (Oxycodone Hcl Ir 5 Mg Tab (Immediate Release)) 5 mg PO Q4H PRN PRN Reason: Mod-Sev Pain (Scale 4-10) Stop: 06/09/25 18:41 Last Admin: 06/02/25 01:07 Dose: 5 mg Polyethylene Glycol (Polyethylene (Miralax) 17 Gm Pack) 17 gm PO DAILY PRN PRN Reason: Constipation Stop: 06/25/25 18:41 Last Admin: 06/01/25 12:37 Dose: 17 gm Pregabalin (Pregabalin 25 Mg Cap) 25 mg PO BID [facility] Stop: 06/27/25 20:59 Last Admin: 06/02/25 09:33 Dose: 25 mg Sennosides (Senna 8.6 Mg Tab) [facility] Stop: 06/29/25 08:59 Last Admin: 06/02/25 09:33 Dose: 8.6 mg
[2025-06-03 07:20] LABS: Hematocrit (blood only) 27.6 % (37.0-47.0); Hemoglobin 9.1 g/dl (12.0-16.0); Mean Corpuscular Hemoglobin 37.0 pg (25.0-34.0); Mean Corpuscular Volume 112.2 fL (80.0-100.0); Platelet Count 213 K/uL (130-400); RDW Standard Deviation 65.9 fL (36.4-46.3); Red Blood Count 2.46 M/uL (4.20-5.40); White Blood Count 5.68 K/ul (4.8-10.8)
[2025-06-03 07:41] LABS: Anion Gap 4.0 (3-11); Blood Urea Nitrogen 27.0 mg/dl (6-23); Calcium 9.5 mg/dl (8.6-10.3); Carbon Dioxide 26.0 mmol/L (21-32); Chloride 110.0 mmol/L (98-107); Creatinine Clr Calc Pharmacy 44.8 ml/min; Glucose 159.0 mg/dl (70-99(Fasting)); Magnesium 1.8 mg/dl (1.7-2.4); Potassium 4.6 mmol/L (3.5-5.1); Sodium 140.0 mmol/L (136-145)
--- NOTE | 2025-06-03 12:01 | Hospitalist Progress Note ---
Date of Service June 03, 2025 Assessment & Plan (1) Cellulitis of left lower extremity: (2) T2DM (type 2 diabetes mellitus): (3) Diabetic neuropathy: (4) HTN (hypertension): (5) Primary hyperparathyroidism: (6) HLD (hyperlipidemia): (7) Anemia: (8) Neutropenia: Plan This is an 84-year-old female with significant past medical history of T2DM, diabetic peripheral neuropathy, HTN, HLD, hypothyroidism, primary hyperparathyroidism, diabetic nonproliferative retinopathy, mild mitral valve stenosis, lumbar spinal stenosis who presents to ED secondary to multiple non healing L foot wounds with associated redness. 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 Medrano - no surgical debridement necessary, highly suspicious of charcot arthropathy consult wound nurse for treatment/follow up - [place] w/ betadine, allow to dry, cover with optifoam, change daily MRSA swab if negative no indication for mrsa coverage given low risk Vascular Arterial duplex reviewed and consulted w/ vasc. surg. - Discussed w/ vasc. surg. Dr. Perdomo - pt is now s/p angiogram, will need bypass - will need vein mapping and cardiac stress test prior to surgery #Anemia, chronic Pt has been anemia since March of 2024 per epic review, lows of 8 after acute gallbladder surgery currently 9.6 and 29.2 anemia panel including iron profile, b12, folate unremarkable retic ct, [id number], tsh/t4, LDH reviewed peripheral smear reviewed: Peripheral smear for review:1. Normochromic/macrocytic red blood cells, markedly reduced numbers of cytologically unremarkable PMN leukocytes, unremarkable l ymphocytes, unremarkable monocytes and unremarkable platelets are all seen.#2. Blasts, schistocytes and spherocytes are all not seen.#3. Although the cytologic signs of sepsis are not seen, it should be noted that this patient has severe neutropenia with an absolute neutrophile count of 0.81 x 10 to the ninth per liter.#4. The cause of this patient's absolute neutropenia is left for clinical correlation.#5. Review of the electronic medical record indicates the patient has unremarkable levels of vitamin B12, folate, and iron studies suggesting the patient's anemia is anemia of chronic disease. will likely need hematology referral as outpt, pt reports chronic fatigue, denies s/sx of bleeding, last c scope was 4 years ago, pt continues to receive them due to strong family hx #Neutropenia pt with absolute neutrophil count low, present since 05/2024 post gallbladder surgery peripheral smear as above pt likely to need hematology referral as outpt #T2DM with neuropathy, retinopathy controlled for age, last a1c 7.7 in January, A1c this admission 8.1. lantus/novolog per protocol hold metformin, glimepiride #HTN chronic, stable, although BPs fluctuates continue atenolol and decrease enalapril dose 20mg--->10 mg hold HCTZ for now given hypercalc and known primary hyperparathyroidism pt previously follow endo in [place] who recommended discontinuing hctz, pt reports resuming it due to some lower ext edema #Hypercalcemia #Primary Hyperparathyroidism with hx of R superior parathyroidectomy in 2007 had follow [facility] at [place], last seen in 2019, recommend re establishing for monitoring of calcium levels avoid calcium supplements which can also be found in daily MVI #Chronic diarrhea: felt 2/2 hx of R hemicolectomy as well as last years gallbladder surgery, bowels always loose, was recently prescribe cholestyramine but didn't start yet she states some constipation now. Will observe Consult PT Trial low dose Cymbalta and Lyrica for severe neuropathic pain #DVT ppx: SQ Lovenox FULL CODE Admission and Anticipated Discharge Date Admission Date: May 26, 2025 Subjective Pt seen in follow up Neuropathic pain improved on Cymbalta and Lyrica were started in the hospital. Pain seems improved now. Arterial duplex also abnormal - and vasc. surgery consulted Dr. Perdomo -> pt now s/p angiogram, discussed that pt will need bypass Currently no fever, chills, chest pain or shortness of breath, no abd. pain, n/v wound care consulted Pt has a boot in her room from orthotics Family at the bedside and updated Review of Systems Review of Systems: All systems reviewed & are unremarkable except as noted in Subjective Physical Exam Physical Exam: General- adult female,WD/WN in NAD, chronic ill appearance Eyes- PERRL, EOMI, anicteric Lungs- clear to auscultation b/l Heart- regular rhythm; soft murmur Abdomen- normal bowel sounds, soft, nontender Extremities- Venous stasis both legs. Has several scattered diabetic ulcers on the extremities. L medial ankle/,L3rd distal toe, developing blister to lateral 4th toe, small blood bulla to distal 5th toe and lateral ankle wound None are draining or seem to be actively infected. Has erythema to both lower extremities but resolves when she is supine. Results & Data Results & Data Vital Signs (Past 12 Hours) Vital Signs Temp Pulse Pulse Resp BP BP Pulse Ox 06/03/25 11:27 36.5 C 55 L 18 175/69 H 99 06/03/25 08:31 36.3 C L 74 20 118/58 L 94 06/03/25 05:48 53 L 06/03/25 04:13 36.6 C 60 18 168/68 H 97 O2 Del Method 06/03/25 11:27 Room Air 06/03/25 08:31 Room Air 06/03/25 05:48 06/03/25 04:13 Room Air Laboratory Results 06/03/25 06/03/25 06/03/25 Range/Units 11:44 08:04 06:45 WBC 5.68 (4.8-10.8) K/ul RBC 2.46 L (4.20-5.40) M/uL Hgb 9.1 L (12.0-16.0) g/dl Hct 27.6 L (37.0-47.0) % MCV 112.2 H (80.0-100.0) fL MCH 37.0 H (25.0-34.0) pg MCHC 33.0 (32.0-36.0) g/dL RDW Std Deviation 65.9 H (36.4-46.3) fL RDW Coeff of Lynda 16.2 H (11.5-14.5) % Plt Count 213 (130-400) K/uL MPV 10.7 (9.4-12.4) fL Sodium 140 (136-145) mmol/L Potassium 4.6 (3.5-5.1) mmol/L Chloride 110 H (98-107) mmol/L Carbon Dioxide 26 (21-32) mmol/L Anion Gap 4 (3-11) BUN 27 H (6-23) mg/dl Creatinine 0.91 (0.6-1.2) mg/dl Est Cr Clr Drug Dosing 44.8 ml/min eGFR 62.21 BUN/Creatinine Ratio 29.7 H (10-20) Glucose 159 H (70-99(Fasting)) mg/dl POC Glucose 181 H 168 H (70-99) mg/dl Calcium 9.5 (8.6-10.3) mg/dl Phosphorus 3.2 (2.5-4.9) mg/dl Magnesium 1.8 (1.7-2.4) mg/dl 06/02/25 06/02/25 06/02/25 Range/Units 20:12 16:52 12:05 WBC (4.8-10.8) K/ul RBC (4.20-5.40) M/uL Hgb (12.0-16.0) g/dl Hct (37.0-47.0) % MCV (80.0-100.0) fL MCH (25.0-34.0) pg MCHC (32.0-36.0) g/dL RDW Std Deviation (36.4-46.3) fL RDW Coeff of Lynda (11.5-14.5) % Plt Count (130-400) K/uL MPV (9.4-12.4) fL Sodium (136-145) mmol/L Potassium (3.5-5.1) mmol/L Chloride (98-107) mmol/L Carbon Dioxide (21-32) mmol/L Anion Gap (3-11) BUN (6-23) mg/dl Creatinine (0.6-1.2) mg/dl Est Cr Clr Drug Dosing ml/min eGFR BUN/Creatinine Ratio (10-20) Glucose (70-99(Fasting)) mg/dl POC Glucose 205 H 147 H 264 H (70-99) mg/dl Calcium (8.6-10.3) mg/dl Phosphorus (2.5-4.9) mg/dl Magnesium (1.7-2.4) mg/dl Medications Administered Current Inpatient Medications Acetaminophen (Acetaminophen 325 Mg Tab) 650 mg PO Q4H PRN PRN Reason: Pain or Fever Stop: 06/25/25 18:41 Last Admin: 06/01/25 14:30 Dose: 650 mg Aspirin (Aspirin 81 Mg Ectab) 81 mg PO DAILY [facility] Stop: 06/26/25 08:59 Last Admin: 06/03/25 10:30 Dose: 81 mg Atenolol (Atenolol 50 Mg Tablet) 100 mg PO DAILY VAL Stop: 06/26/25 08:59 Last Admin: 06/03/25 08:31 Dose: 100 mg Atorvastatin Calcium (Atorvastatin 40 Mg Tab) 40 mg PO HS VAL Stop: 06/25/25 20:59 Last Admin: 06/02/25 20:15 Dose: 40 mg Dextrose (Dextrose 50% 50 Ml Syringe) 25 - 50 ml IV UD PRN; Protocol PRN Reason: Hypoglycemia Protocol Stop: 06/25/25 18:41 Doxycycline Hyclate (Doxycycline Hyclate 100 Mg Cap) 100 mg PO BID VAL Stop: 06/04/25 20:59 Last Admin: 06/03/25 08:31 Dose: 100 mg Duloxetine HCl (Duloxetine Hcl 20 Mg Cap) 20 mg PO HS [facility] Stop: 06/26/25 19:49 Last Admin: 06/02/25 20:15 Dose: 20 mg Enalapril Maleate (Enalapril Maleate 10 Mg Tab) 10 mg PO DAILY VAL Stop: 06/28/25 08:59 Last Admin: 06/03/25 08:31 Dose: 10 mg Enoxaparin Sodium (Enoxaparin Inj 40 Mg/0.4 Ml Syr) 40 mg SQ HS [facility] Stop: 06/25/25 20:59 Last Admin: 06/01/25 20:45 Dose: 40 mg Famotidine (Famotidine 20 Mg Tab) 20 mg PO DAILY PRN PRN Reason: Heartburn Stop: 06/25/25 18:41 Glucagon (Glucagon For Inj 1 Mg Vial) 1 mg SQ UD PRN; Protocol PRN Reason: Hypoglycemia Protocol Stop: 06/25/25 18:41 Glucose (Glucose 40% Gel 15 Gm Tube) 15 - 30 gm PO UD PRN; Protocol PRN Reason: Hypoglycemia Protocol Stop: 06/25/25 18:41 Glucose (Glucose 10 Tab/Tube) 4 - 8 tab PO UD PRN; Protocol PRN Reason: Hypoglycemia Protocol Stop: 06/25/25 18:41 Insulin Aspart (Insulin Aspart Per Unit Charge) 0 units SC ACHS VAL Stop: 06/25/25 20:59 Last Admin: 06/03/25 09:06 Dose: 1 units Insulin Glargine (Lantus Per Unit Charge) 0 - 6 units SQ BID VAL Stop: 06/25/25 20:59 Last Admin: 06/03/25 08:57 Dose: Not Given Lactobacillus Acidophilus (Advanced Probiotic 625 Mg Capsule) 1,250 mg PO DAILY [facility] Stop: 06/26/25 08:59 Last Admin: 06/03/25 08:30 Dose: 1,250 mg Levothyroxine Sodium (Levothyroxine Sodium 75 Mcg Tablet) 75 mcg PO DAILYBB [facility] Stop: 06/26/25 06:29 Last Admin: 06/03/25 05:41 Dose: 75 mcg Melatonin (Melatonin 3 Mg Tab) 3 mg PO HS PRN PRN Reason: Sleep Stop: 06/25/25 18:41 Last Admin: 06/02/25 23:52 Dose: 3 mg Miscellaneous (Carbohydrates For Hypoglycemia ) 15 - 30 gm PO UD PRN PRN Reason: Hypoglycemia Protocol Stop: 06/25/25 18:41 Ondansetron HCl (Ondansetron Inj 2 Mg/Ml 2 Ml Vial) 4 mg IV Q6H PRN PRN Reason: Nausea Stop: 06/25/25 18:41 Oxycodone HCl (Oxycodone Hcl Ir 5 Mg Tab (Immediate Release)) 5 mg PO Q4H PRN PRN Reason: Mod-Sev Pain (Scale 4-10) Stop: 06/09/25 18:41 Last Admin: 06/02/25 23:52 Dose: 5 mg Polyethylene Glycol (Polyethylene (Miralax) 17 Gm Pack) 17 gm PO DAILY PRN PRN Reason: Constipation Stop: 06/25/25 18:41 Last Admin: 06/01/25 12:37 Dose: 17 gm Pregabalin (Pregabalin 25 Mg Cap) 25 mg PO BID [facility] Stop: 06/27/25 20:59 Last Admin: 06/03/25 09:07 Dose: 25 mg Sennosides (Senna 8.6 Mg Tab) 8.6 mg PO QAM [facility] Stop: 06/29/25 08:59 Last Admin: 06/03/25 09:07 Dose: 8.6 mg
--- NOTE | 2025-06-03 14:11 | Pre Anesthesia Assessment ---
Date of Service June 03, 2025 Pre Sedation Assessment Vital Signs Temp Pulse Pulse Resp BP BP Pulse Ox 06/03/25 11:27 36.5 C 55 L 18 175/69 H 99 06/03/25 08:31 36.3 C L 74 20 118/58 L 94 06/03/25 05:48 53 L 06/03/25 04:13 36.6 C 60 18 168/68 H 97 06/02/25 23:18 36.8 C 55 L 18 134/68 97 06/02/25 21:59 55 L 06/02/25 20:48 163/64 H 06/02/25 19:43 36.5 C 64 18 188/66 H 98 06/02/25 14:59 57 L O2 Del Method 06/03/25 11:27 Room Air 06/03/25 08:31 Room Air 06/03/25 05:48 06/03/25 04:13 Room Air 06/02/25 23:18 Room Air 06/02/25 21:59 06/02/25 20:48 06/02/25 19:43 Room Air 06/02/25 14:59 Cardiovascular RRR, no murmur, no edema Respiratory normal respiratory effort, lungs clear to auscultation Pre-Sedation Airway Assessment Smoking Status: Former smoker Short, Thick Neck: No Thyromental Distance: > or= 3.5 Finger Breadths Oral Cavity: + WNL Mallampati Class: II ASA: ASA3 NPO Status Date of Last Intake of Fluids: 06/03/25 Time of Last Intake of Fluids: 10:30 Date of Last Intake of Solid Food: 06/02/25 Time of Last Intake of Solid Foods: 17:00 Procedure Planning Current Medications Reviewed: Yes Notes The planned sedation has been discussed with the patient. Informed Consent was obtained. I have identified the patient, determined the appropriateness of sedation and have assessed the patient immediately prior to the procedure. All medicine(s) and interventions are by my order.
--- NOTE | 2025-06-03 14:13 | Vascular Medicine ProgressNote ---
Date of Service June 03, 2025 Assessment & Plan (1) Peripheral vascular disease of lower extremity with ulceration: Plan: Plan for left leg angiogram today with possible intervention via right femoral access. Consent previously obtained. No significant clinical change since last exam. Admission and Anticipated Discharge Date Admission Date: May 26, 2025 Results & Data Vital Signs (Past 12 Hours) Vital Signs Temp Pulse Pulse Resp BP BP Pulse Ox 06/03/25 11:27 36.5 C 55 L 18 175/69 H 99 06/03/25 08:31 36.3 C L 74 20 118/58 L 94 06/03/25 05:48 53 L 06/03/25 04:13 36.6 C 60 18 168/68 H 97 O2 Del Method 06/03/25 11:27 Room Air 06/03/25 08:31 Room Air 06/03/25 05:48 06/03/25 04:13 Room Air PG Care Time/CCT Total # of Minutes Spent Total Time Spent with Patient: Total time spent is greater than 50% in coordination of care (as documented) at patient's floor/unit and/or counseling patient: Coding Level of Care Code None Diagnoses Peripheral vascular disease of lower extremity with ulceration I73.9; L97.909
[2025-06-03] MEDS: MIDAZOLAM HCL 1 MG/ML 2ML VIAL ONE (14:45)
--- NOTE | 2025-06-03 15:22 | Post Operative Brief Note ---
Immediate Post Op Note Date of Surgery June 03, 2025 Pre & Post Diagnosis Operation Date: 06/03/25 12:30 Pre-Op Diagnosis: Peripheral Arterial Disease Post-Op Diagnosis: Peripheral Arterial Disease I identified the patient and participated in the time-out.: Yes Procedure Operation Date: 06/03/25 12:30 Actual Procedures p Left Lower Extremity Angiogram, Right Lower Extremity Angiogram, Moderate Sedation 1445-(Left) - Akira Perdomo MD Surgeon Akira Perdomo MD Counter Waiter none Estimated Blood Loss 5 Findings Consistent with Post-Op Diagnosis short segment left popliteal occlusion with proximal tibial disease. Better served with bypass surgery. Fluids 150cc Anesthesia Type RN Sedation Disposition Accompanied Patient To Recovery: Yes Disposition: Recovery Room
--- NOTE | 2025-06-03 15:31 | Operative Report ---
PG Post Operative Report Pre & Post Diagnosis Operation Date: 06/03/25 12:30 Pre-Op Diagnosis: Peripheral Arterial Disease Post-Op Diagnosis: Peripheral Arterial Disease I identified the patient and participated in the time-out.: Yes Procedure Operation Date: 06/03/25 12:30 Actual Procedures p Left Lower Extremity Angiogram, Right Lower Extremity Angiogram, Moderate Sedation 1445-(Left) - Akira Perdomo MD Surgeon Akira Perdomo MD Senior Consulting Manager none Estimated Blood Loss 5 Findings Consistent with Post-Op Diagnosis Fluids 150cc Specimens none Drains none Anesthesia Type RN Sedation Complications none Disposition Accompanied Patient To Recovery: Yes Disposition: Recovery Room Indications 84-year-old female with evidence of peripheral vascular disease on noninvasive studies. She has slow to heal wounds in the left lower extremity. She is brought to the operating room for angiogram and possible intervention. Risk goals and alternatives were discussed with the patient understood and gave consent to proceed. Description of Procedure A timeout was performed, it was performed and the patient identified procedure verified. Conscious sedation was administered under my direction. A total of 45 minutes of conscious sedation was used. Medications included 1 mg of Versed, 100 mcg of fentanyl as well as 5 cc of lidocaine local. Both groins were prepped and draped in the usual sterile fashion. Under ultrasound guidance the right common femoral artery was accessed over the femoral head. A mandrel wire was inserted and ultimately upsized to a 5 [place] sheath. A hook catheter was used to engage the abdominal aorta and abdominal aortography was performed demonstrating no significant disease of the infrarenal abdominal aorta either common internal or external iliac arteries. The catheter was then withdrawn to the aortic bifurcation. Pelvic arteriography was performed. The left common and then external iliac arteries were selectively catheterized. Ultimately the left superficial femoral artery was catheterized and a left lower extremity diagnostic angiogram was performed. This revealed a patent left external iliac and common femoral artery as well as deep and superficial femoral artery. The popliteal artery occluded at its origin and then had diffuse disease throughout its course down into the tibioperoneal trunk. The anterior tibial artery was patent. The peroneal artery was the dominant runoff of the posterior tibial artery filled as well. There was some disease in the proximal posterior tibial artery. Runoff to the ankle was suitable with the peroneal artery supplying the dorsalis pedis artery and an intact plantar arch. At this point and made the decision to not proceed with an intervention given the extensive disease behind the knee. We will assess her suitability for open surgical bypass which I think would be a more durable result particularly given the location behind the knee. Diagnostic right lower extremity arteriography was then performed. The patient has similar symptoms on the right although no nonhealing wounds. Injection through the sheath was performed after removing the catheter over a wire. This demonstrated a patent common superficial and deep femoral artery on the right. The popliteal artery had mild disease throughout but was patent. The anterior tibial artery occluded shortly after its origin. The peroneal and posterior tibial arteries were intact to the ankle with the posterior tibial artery crossing the ankle. The sheath was removed and pressure held to achieve hemostasis. She was taken recovery room in stable condition and tolerated procedure without immediate c omplication. 54 cc IV contrast, 77 mGy. I attest to the content of the Intraoperative Record and any orders documented therein. Any exceptions are noted below.
--- NOTE | 2025-06-03 15:37 | Endovascular Procedure Note ---
PG Endovascular Procedure Rpt Pre & Post Diagnosis Operation Date: 06/03/25 12:30 Pre-Op Diagnosis: Peripheral Arterial Disease Post-Op Diagnosis: Peripheral Arterial Disease I identified the patient and participated in the time-out.: Yes Procedure Operation Date: 06/03/25 12:30 Actual Procedures p Left Lower Extremity Angiogram, Right Lower Extremity Angiogram, Moderate Sedation 1445-(Left) - Akira Perdomo MD Surgeon Akira Perdomo MD Catia Designer none Estimated Blood Loss 5 Findings Consistent with Post-Op Diagnosis Anesthesia Type RN Sedation Complications none Disposition Accompanied Patient To Recovery: Yes Description of Procedure See postop note I attest to the content of the Intraoperative Record and any orders documented therein. Any exceptions are noted below. Vascular Charges Indication for Procedure (1) Peripheral vascular disease of lower extremity with ulceration: Angiography/Venography Procedure 1: Angiography/Venography charges: [id number] Initial 3rd order or selective abd, pelvic, or LE branch Procedure 2: Angiography/Venography charges: [id number] Aortography, abdominal, by serialography, radiological S&I Procedure 3: Angiography/Venography charges: [id number] Angiography, extremity, bilateral, radiological S&I Additional Services Procedure 1: Additional Services Charges: 44160 Ultrasound guidance - vascular access Procedure 2: Additional Services Charges: 92056 Moderate sedation initial 15 min Procedure 3: Additional Services Charges: 90662 Moderate sedation, each additional 15 min Procedure 4: Additional Services Charges: 49635 Moderate sedation, each additional 15 min
[2025-06-03] MEDS: LIDOCAINE 1% LOCAL 20 ML VIAL ONE (15:51)
[2025-06-03] MEDS: SODIUM CHLORIDE 0.9% 500 ML IV SCH (15:52)
[2025-06-03] MEDS ORDERED: VISIPAQUE IV PRN (15:55)
--- NOTE | 2025-06-04 09:00 | Hospitalist Progress Note ---
Date of Service June 04, 2025 Assessment & Plan (1) Cellulitis of left lower extremity: (2) T2DM (type 2 diabetes mellitus): (3) Diabetic neuropathy: (4) HTN (hypertension): (5) Primary hyperparathyroidism: (6) HLD (hyperlipidemia): (7) Anemia: (8) Neutropenia: Plan This is an 84-year-old female with significant past medical history of T2DM, diabetic peripheral neuropathy, HTN, HLD, hypothyroidism, primary hyperparathyroidism, diabetic nonproliferative retinopathy, mild mitral valve stenosis, lumbar spinal stenosis who presents to ED secondary to multiple non healing L foot wounds with associated redness. 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 Medrano - no surgical debridement necessary, highly suspicious of charcot arthropathy consult wound nurse for treatment/follow up - [place] w/ betadine, allow to dry, cover with optifoam, change daily MRSA swab if negative no indication for mrsa coverage given low risk Vascular Arterial duplex reviewed and consulted w/ vasc. surg. - Discussed w/ vasc. surg. Dr. Perdomo - pt is now s/p angiogram, will need bypass - will need vein mapping and cardiac stress test prior to surgery. Vein mapping and stress test today (06/04), plan for Bypass for #Anemia, chronic Pt has been anemia since March of 2024 per epic review, lows of 8 after acute gallbladder surgery currently 9.6 and 29.2 anemia panel including iron profile, b12, folate unremarkable retic ct, [id number], tsh/t4, LDH reviewed peripheral smear reviewed: Peripheral smear for review:1. Normochromic/macrocytic red blood cells, markedly reduced numbers of cytologically unremarkable PMN leukocytes, unremarkable lymphocytes, unremarkable monocytes and unremarkable platelets are all seen.#2. Blasts, schistocytes and spherocytes are all not seen.#3. Although the cytologic signs of sepsis are not seen, it should be noted that this patient has severe neutropenia with an absolute neutrophile count of 0.81 x 10 to the ninth per liter.#4. The cause of this patient's absolute neutropenia is left for clinical correlation.#5. Review of the electronic medical record indicates the patient has unremarkable levels of vitamin B12, folate, and iron studies suggesting the patient's anemia is anemia of chronic disease. will likely need hematology referral as outpt, pt reports chronic fatigue, denies s/sx of bleeding, last c scope was 4 years ago, pt continues to receive them due to strong family hx #Neutropenia pt with absolute neutrophil count low, present since 05/2024 post gallbladder surgery peripheral smear as above pt likely to need hematology referral as outpt #T2DM with neuropathy, retinopathy controlled for age, last a1c 7.7 in January, A1c this admission 8.1. lantus/novolog per protocol hold metformin, glimepiride #HTN chronic, stable, although BPs fluctuates continue atenolol and decrease enalapril dose 20mg--->10 mg hold HCTZ for now given hypercalc and known primary hyperparathyroidism pt previously follow endo in [facility] who recommended discontinuing hctz, pt reports resuming it due to some lower ext edema #Hypercalcemia #Primary Hyperparathyroidism with hx of R superior parathyroidectomy in 2007 had follow [facility] at [facility], last seen in 2019, recommend re establishing for monitoring of calcium levels avoid calcium supplements which can also be found in daily MVI #Chronic diarrhea: felt 2/2 hx of R hemicolectomy as well as last years gall bladder surgery, bowels always loose, was recently prescribe cholestyramine but didn't start yet she states some constipation now. Will observe Consult PT Trial low dose Cymbalta and Lyrica for severe neuropathic pain #DVT ppx: SQ Lovenox FULL CODE Admission and Anticipated Discharge Date Admission Date: May 26, 2025 Subjective Pt seen in follow up Neuropathic pain improved on Cymbalta and Lyrica were started in the hospital. Pain seems improved now. Arterial duplex also abnormal - and vasc. surgery consulted Dr. Perdomo -> pt now s/p angiogram, discussed that pt will need bypass - vein mapping and cardiac stress testing today Currently no fever, chills, chest pain or shortness of breath, no abd. pain, n/v wound care consulted Pt has a boot in her room from orthotics Family at the bedside and updated Review of Systems Review of Systems: All systems reviewed & are unremarkable except as noted in Subjective Physical Exam Physical Exam: General- adult female,WD/WN in NAD, chronic ill appearance Eyes- PERRL, EOMI, anicteric Lungs- clear to auscultation b/l Heart- regular rhythm; soft murmur Abdomen- normal bowel sounds, soft, nontender Extremities- Venous stasis both legs. Has several scattered diabetic ulcers on the extremities. L medial ankle/,L3rd distal toe, developing blister to lateral 4th toe, small blood bulla to distal 5th toe and lateral ankle wound None are draining or seem to be actively infected. Has erythema to both lower ex tremities but resolves when she is supine. Results & Data Results & Data Vital Signs (Past 12 Hours) Vital Signs Temp Pulse Pulse Resp BP BP Pulse Ox 06/04/25 07:02 36.2 C L 76 17 128/81 93 06/04/25 05:39 57 L 06/04/25 02:41 36.3 C L 56 L 16 119/65 97 06/03/25 22:48 36.4 C L 53 L 18 110/58 L 95 06/03/25 22:36 56 L O2 Del Method 06/04/25 07:02 Room Air 06/04/25 05:39 06/04/25 02:41 Room Air 06/03/25 22:48 Room Air 06/03/25 22:36 Laboratory Results 06/04/25 06/03/25 06/03/25 Range/Units 07:27 20:19 17:55 POC Glucose 170 H 279 H 160 H (70-99) mg/dl 06/03/25 06/03/25 Range/Units 16:48 11:44 POC Glucose 162 H 181 H (70-99) mg/dl Medications Administered Current Inpatient Medications Acetaminophen (Acetaminophen 325 Mg Tab) 650 mg PO Q4H PRN PRN Reason: Pain or Fever Stop: 06/25/25 18:41 Last Admin: 06/01/25 14:30 Dose: 650 mg Aspirin (Aspirin 81 Mg Ectab) 81 mg PO DAILY VAL Stop: 06/26/25 08:59 Last Admin: 06/04/25 08:17 Dose: 81 mg Atenolol (Atenolol 50 Mg Tablet) 100 mg PO DAILY VAL Stop: 06/26/25 08:59 Last Admin: 06/04/25 08:17 Dose: 100 mg Atorvastatin Calcium (Atorvastatin 40 Mg Tab) 40 mg PO HS VAL Stop: 06/25/25 20:59 Last Admin: 06/03/25 21:07 Dose: 40 mg Dextrose (Dextrose 50% 50 Ml Syringe) 25 - 50 ml IV UD PRN; Protocol PRN Reason: Hypoglycemia Protocol Stop: 06/25/25 18:41 Doxycycline Hyclate (Doxycycline Hyclate 100 Mg Cap) 100 mg PO BID [facility] Stop: 06/04/25 20:59 Last Admin: 06/04/25 08:16 Dose: 100 mg Duloxetine HCl (Duloxetine Hcl 20 Mg Cap) 20 mg PO HS [facility] Stop: 06/26/25 19:49 Last Admin: 06/03/25 21:07 Dose: 20 mg Enalapril Maleate (Enalapril Maleate 10 Mg Tab) 10 mg PO DAILY VAL Stop: 06/28/25 08:59 Last Admin: 06/04/25 08:16 Dose: 10 mg Enoxaparin Sodium (Enoxaparin Inj 40 Mg/0.4 Ml Syr) 40 mg SQ HS [facility] Stop: 06/25/25 20:59 Last Admin: 06/01/25 20:45 Dose: 40 mg Famotidine (Famotidine 20 Mg Tab) 20 mg PO DAILY PRN PRN Reason: Heartburn Stop: 06/25/25 18:41 Glucagon (Glucagon For Inj 1 Mg Vial) 1 mg SQ UD PRN; Protocol PRN Reason: Hypoglycemia Protocol Stop: 06/25/25 18:41 Glucose (Glucose 40% Gel 15 Gm Tube) 15 - 30 gm PO UD PRN; Protocol PRN Reason: Hypoglycemia Protocol Stop: 06/25/25 18:41 Glucose (Glucose 10 Tab/Tube) 4 - 8 tab PO UD PRN; Protocol PRN Reason: Hypoglycemia Protocol Stop: 06/25/25 18:41 Insulin Aspart (Insulin Aspart Per Unit Charge) 0 units SC ACHS VAL Stop: 06/25/25 20:59 Last Admin: 06/04/25 08:19 Dose: 4 units Insulin Glargine (Lantus Per Unit Charge) 0 - 6 units SQ BID VAL Stop: 06/25/25 20:59 Last Admin: 06/04/25 08:19 Dose: 3 units Iodixanol (Visipaque) 54 ml IV UD PRN PRN Reason: Interaction Checking Stop: 06/07/25 15:54 Lactobacillus Acidophilus (Advanced Probiotic 625 Mg Capsule) 1,250 mg PO DAILY [facility] Stop: 06/26/25 08:59 Last Admin: 06/04/25 08:16 Dose: 1,250 mg Levothyroxine Sodium (Levothyroxine Sodium 75 Mcg Tablet) 75 mcg PO DAILYBB [facility] Stop: 06/26/25 06:29 Last Admin: 06/04/25 06:01 Dose: 75 mcg Melatonin (Melatonin 3 Mg Tab) 3 mg PO HS PRN PRN Reason: Sleep Stop: 06/25/25 18:41 Last Admin: 06/03/25 21:07 Dose: 3 mg Miscellaneous (Carbohydrates For Hypoglycemia ) 15 - 30 gm PO UD PRN PRN Reason: Hypoglycemia Protocol Stop: 06/25/25 18:41 Ondansetron HCl (Ondansetron Inj 2 Mg/Ml 2 Ml Vial) 4 mg IV Q6H PRN PRN Reason: Nausea Stop: 06/25/25 18:41 Oxycodone HCl (Oxycodone Hcl Ir 5 Mg Tab (Immediate Release)) 5 mg PO Q4H PRN PRN Reason: Mod-Sev Pain (Scale 4-10) Stop: 06/09/25 18:41 Last Admin: 06/02/25 23:52 Dose: 5 mg Polyethylene Glycol (Polyethylene (Miralax) 17 Gm Pack) 17 gm PO DAILY PRN PRN Reason: Constipation Stop: 06/25/25 18:41 Last Admin: 06/01/25 12:37 Dose: 17 gm Pregabalin (Pregabalin 25 Mg Cap) 25 mg PO BID [facility] Stop: 06/27/25 20:59 Last Admin: 06/04/25 08:24 Dose: 25 mg Sennosides (Senna 8.6 Mg Tab) 8.6 mg PO QAM [facility] Stop: 06/29/25 08:59 Last Admin: 06/04/25 08:24 Dose: 8.6 mg
--- NOTE | 2025-06-04 11:16 | Cardiology Consultation ---
Date of Consultation June 04, 2025 Assessment & Plan (1) Preop cardiovascular exam: (2) Peripheral vascular disease of lower extremity with ulceration: Plan Patient is an 84-year-old female referred for preoperative cardiovascular evaluation prior to planned surgical revascularization left lower extremity. Patient has no prior history of myocardial infarction, angina, congestive heart failure, arrhythmias. Mild aortic stenosis on last echocardiogram with preserved LV systolic function January 2025. Normal renal function Functional capacity not well assessed due to limiting lower extremity disease. Ambulates with cane. Patient on statin, beta-radha with atenolol, KEYANNA inhibitor with benazepril due to underlying medical issues No cardiac difficulties with complex cholecystectomy 1 year ago Laboratory testing notable macrocytic anemia Recommendations: Preoperative assessment with dobutamine stress echocardiogram. Patient on clear liquid diet today we will proceed with further recommendations pending testing History of Present Illness Reason for Consultation: Preoperative cardiovascular evaluation Requesting Physician: Jamarcus hospitalist Attending Physician: David Lewis MD History of Present Illness Patient is an 84-year-old female referred for preoperative evaluation prior to planned possible vascular surgery for nonhealing wound left foot and distal peripheral vascular disease. Patient's underlying medical issues include type 2 diabetes mellitus, hypertension, hyperlipidemia, hypothyroidism. No prior history of myocardial disease, myocardial infarction, angina, congestive heart failure. Echocardiogram January 2025 with preserved LV systolic function with mild aortic stenosis No prior complications with surgery undergoing complex cholecystectomy April 2024 without cardiac complication. No difficulties with anesthesia or sedation Patient denies chest pain shortness of breath tachypalpitations dizziness or lightheadedness. Exercise capacity limited due to lower extremity disease. Allergies Allergy/AdvReac Type Severity Reaction Status Date / Time No Known Allergies Allergy Unknown Verified 05/26/25 16:00 Home Medications Medication Instructions Recorded Confirmed Type aspirin 81 mg tablet,delayed 81 mg PO DAILY 05/26/25 05/26/25 History release atenolol 100 mg tablet 100 mg PO DAILY 05/26/25 05/26/25 History atorvastatin 40 mg tablet 40 mg PO HS 05/26/25 05/26/25 History benazepril 40 mg tablet 40 mg PO DAILY 05/26/25 05/26/25 History cholestyramine (with sugar) 4 gram 1 ea PO BID 05/26/25 05/26/25 History powder for susp in a packet glimepiride 4 mg tablet 4 mg PO DAILYBB 05/26/25 05/26/25 History hydrochlorothiazide 25 mg tablet 25 mg PO DAILY 05/26/25 05/26/25 History levothyroxine 75 mcg tablet 75 mcg PO DAILYBB 05/26/25 05/26/25 History metformin 500 mg tablet,extended 1,000 mg PO BID 05/26/25 05/26/25 History release 24 hr multivitamin 1 tab PO DAILY 05/26/25 05/26/25 History vit C 250 mg-vit E 90 mg-zinc 40 1 tab PO BID 05/26/25 05/26/25 History mg-copper 1 is-bijedb-ydygal capsule (PreserVision AREDS-2) Patient History Medical History (Updated 06/04/25 @ 11:20 by Rony Blair MD) Hypothyroidism Diabetic retinopathy Primary hyperparathyroidism T2DM (type 2 diabetes mellitus) HLD (hyperlipidemia) HTN (hypertension) Surgical History Hx of tonsillectomy Hx of appendectomy Hx of parathyroidectomy R superior History of partial colectomy R hemicolectomy with ileocolic anastomosis Hx of endoscopic retrograde cholangiopancreatography Hx of cataract extraction Hx of cholecystectomy 04/2024 lap converted to open 2/2 serosal tear of stomach Family History Mother Colorectal cancer Diabetes Father Colorectal cancer Sister Cancer lymphoma Sister Myocardial infarction Sister Rheumatoid arthritis Social History Smoking Status: Former smoker Tobacco Type: Cigarettes Second Hand Exposure: No; Do You Dip or Chew Tobacco: No; Tobacco Cessation Education Requested by Patient: No Hx Alcohol Use: No Hx Substance Use: No Preferred Language: [place] Communication Ability: Effective Tennis Professional Required: No Beliefs That Will Affect Care: None Current Living Situation: Spouse Current Living Situation Comment: lives at home with Other Information That Helps Us Care for You: No Feels Safe at Home: Yes Safety Concerns: Feels Safe At This Time Assistive Devices: Cane and Glasses Assistive Devices Comment: cane/glasses Physical Exam Constitutional: no acute distress Eyes: PERRL, conjunctivae normal, anicteric sclerae ENMT: external ear and nose normal, oropharynx normal Neck: trachea midline, no thyromegaly Respiratory: normal respiratory effort, lungs clear to auscultation Cardiovascular: Rate/Rhythm: regular rate, regular rhythm and + tachycardic Heart Sounds: normal S1 and + murmur (Grade 2 over 6 systolic murmur, no diastolic murmur) Vessels: no JVD Extremities: + edema Gastrointestinal (Abdomen): normal bowel sounds, soft, nontender, no hepatosplenomegaly Results & Data Vital Signs (Past 12 Hours) Vital Signs Temp Pulse Pulse Resp BP BP Pulse Ox 06/04/25 10:44 36.4 C L 54 L 18 167/67 H 100 06/04/25 07:02 36.2 C L 76 17 128/81 93 06/04/25 05:39 57 L 06/04/25 02:41 36.3 C L 56 L 16 119/65 97 O2 Del Method 06/04/25 10:44 Room Air 06/04/25 07:02 Room Air 06/04/25 05:39 06/04/25 02:41 Room Air Laboratory Results Laboratory Results - last 24 hr 06/03/25 06/03/25 06/03/25 11:44 16:48 17:55 POC Glucose 181 H 162 H 160 H 06/03/25 06/04/25 20:19 07:27 POC Glucose 279 H 170 H Diagnostic Findings Echocardiogram 01/30/2025 Left ventricular cavity size is normal with mild left ventricular hypertrophy There is isolated basal septal hypertrophy measuring 1.7 cm Wall motion is normal with a EF 55 to 60% Mild aortic valve calcification with borderline aortic stenosis peak aortic valve velocity 2.3 m/s Mild mitral insufficiency ECG Additional Comments: 06/04/2025 Sinus bradycardia 55 bpm PG Care Time/CCT Total # of Minutes Spent Total Time Spent with Patient: Total time spent is greater than 50% in coordination of care (as documented) at patient's floor/unit and/or counseling patient: Coding Level of Care Code 89941 IN/OBS CONSULT LVL 5,80M Diagnoses Preop cardiovascular exam Z01.810 Peripheral vascular disease of lower extremity with ulceration I73.9; L97.909
--- NOTE | 2025-06-04 13:22 | Vascular Medicine ProgressNote ---
Date of Service June 04, 2025 Assessment & Plan (1) Peripheral vascular disease of lower extremity with ulceration: Plan: Awaiting results of cardiac stress testing and vein mapping. If both are suitable, have tentatively scheduled her for left femoral - popliteal/tibial artery bypass grafting on , 06/06/25. Admission and Anticipated Discharge Date Admission Date: May 26, 2025 Subjective Patient not in room - undergoing cardiac stress test. Results & Data Vital Signs (Past 12 Hours) Vital Signs Temp Pulse Pulse Resp BP BP Pulse Ox 06/04/25 10:44 36.4 C L 54 L 18 167/67 H 100 06/04/25 07:02 36.2 C L 76 17 128/81 93 06/04/25 05:39 57 L 06/04/25 02:41 36.3 C L 56 L 16 119/65 97 O2 Del Method 06/04/25 10:44 Room Air 06/04/25 07:02 Room Air 06/04/25 05:39 06/04/25 02:41 Room Air PG Care Time/CCT Total # of Minutes Spent Total Time Spent with Patient: Total time spent is greater than 50% in coordination of care (as documented) at patient's floor/unit and/or counseling patient: Coding Level of Care Code None Diagnoses Peripheral vascular disease of lower extremity with ulceration I73.9; L97.909
--- NOTE | 2025-06-04 14:56 | Communication Note ---
Date of Service: June 04, 2025 Patient referred and underwent dobutamine stress echocardiogram uneventfully. Patient received maximal dose dobutamine 50 mcg/kg/min and 2.0 mg IV atropine to achieve a mildly blunted peak heart rate of 77% age-predicted maximal heart rate. No cardiac symptoms and normal blood pressure response No evidence of ischemia by EKG or echocardiographic criteria Normal LV systolic function with moderate left hypertrophy No contraindications to surgery as planned. Would continue aspirin, atenolol, atorvastatin. Hold benazepril glimepiride and hydrochlorothiazide day of procedure Postop telemetry
--- NOTE | 2025-06-04 14:59 | XRay Report ---
XR chest 2V PA/lateral CLINICAL HISTORY: preop eval COMPARISON STUDY: None FINDINGS: Heart size and pulmonary vasculature are normal. No consolidation or pleural effusion. Ther e are mild thoracic spine degenerative changes. IMPRESSION: No acute findings. ACT 112: Negative or not required by law. Electronically signed by: Vicente Schafer M.D. 06/04/2025 2:58 PM
[2025-06-04] MEDS: ATROPINE SULFATE 0.1 MG/ML 10ML SYR IV ONE ×2 (17:02)
[2025-06-04] MEDS: DOBUTamine HCL 12.5 MG/ML 20 ML VIAL IV ONE (17:02)
[2025-06-04] MEDS: METOPROLOL TARTRATE 1 MG/ML VIAL IV ONE (17:02)
--- NOTE | 2025-06-04 17:14 | Ultrasound Report ---
EXAM: US venous mapping LE BI CLINICAL HISTORY: preop for lower extemity bypass TECHNIQUE: Real-time grayscale and Doppler ultrasound examination of the bilateral lower extremity superficial venous systems was performed to evaluate vein caliber and suitability for potential bypass conduit. Measurements were obtained at multiple standard levels. COMPARISON: None FINDINGS: RIGHT LOWER EXTREMITY (Great Saphenous Vein - GSV): Groin level: 3.8 mm diameter; length 14.0 cm Proximal thigh: 2.5 mm diameter; length 13.4 cm Mid-thigh: 2.9 mm diameter; length 12.2 cm Distal thigh: 1.8 mm diameter; length 14.4 cm Knee (medial): 2.9 mm diameter; length 8.7 cm Proximal calf: 2.0 mm diameter; length 6.5 cm Mid-calf: 1.5 mm diameter; length 6.4 cm Distal calf: Not visualized Ankle level: Not visualized RIGHT LOWER EXTREMITY (Lesser Saphenous Vein - LSV): Behind knee: 3.0 mm diameter; length 4.1 cm Proximal calf: 3.2 mm diameter; length 1.8 cm Mid-calf: 2.8 mm diameter; length 1.7 cm Distal calf: 2.2 mm diameter; length 3.0 cm Ankle level: Not visualized LEFT LOWER EXTREMITY (Great Saphenous Vein - GSV): Groin level: 4.9 mm diameter; length 12.3 cm Proximal thigh: 3.2 mm diameter; length 10.8 cm Mid-thigh: 3.8 mm diameter; length 13.0 cm Distal thigh: 4.1 mm diameter; length 14.9 cm Knee: 3.5 mm diameter; length 10.0 cm Proximal calf: 2.3 mm diameter; length 7.1 cm Mid-calf: 2.0 mm diameter; length 8.7 cm Distal calf: 2.0 mm diameter; length 8.9 cm Ankle level: 3.4 mm diameter; length 7.1 cm LEFT LOWER EXTREMITY (Lesser Saphenous Vein - LSV): Behind knee: 3.8 mm diameter; length 6.9 cm Proximal calf: 3.6 mm diameter; length 7.8 cm Mid-calf: Not visualized Distal calf: Not visualized Ankle level: Not visualized IMPRESSION: 1. Right Great Saphenous Vein (GSV): Segmental caliber ranges from 1.5 mm to 3.8 mm with proximal thigh segments measuring 2.5 mm, potentially suitable for conduit in selected segments. 2. Caliber below the mid-thigh is borderline to suboptimal, particularly distally. 3. Right Lesser Saphenous Vein (LSV): Segmental diameters range from 2.2 mm to 3.2 mm. Visualization is limited distally. 4. Left Great Saphenous Vein (GSV): Segmental caliber ranges from 2.0 mm to 4.9 mm. Overall caliber and continuity suggest suitability for conduit, particularly from groin through knee levels. 5. Left Lesser Saphenous Vein (LSV): Segmental diameters range from 3.6 mm to 3.8 mm proximally. Visualization limited distally. RECOMMENDATION: The left great saphenous vein (GSV) demonstrates the most favorable caliber and continuity for potential bypass conduit use. The right GSV may be considered in proximal segments; however, distal segments show borderline to suboptimal caliber. Lesser saphenous veins bilaterally may serve as secondary options in limited segments. Electronically signed by Juan Merchant 06-04-2025 5:13 PM
[2025-06-05 06:58] LABS: Hematocrit (blood only) 25.4 % (37.0-47.0); Hemoglobin 8.4 g/dl (12.0-16.0); Mean Corpuscular Hemoglobin 36.4 pg (25.0-34.0); Mean Corpuscular Volume 110.0 fL (80.0-100.0); Platelet Count 210 K/uL (130-400); RDW Standard Deviation 64.7 fL (36.4-46.3); Red Blood Count 2.31 M/uL (4.20-5.40); White Blood Count 5.98 K/ul (4.8-10.8)
[2025-06-05 07:21] LABS: Anion Gap 5.0 (3-11); Blood Urea Nitrogen 25.0 mg/dl (6-23); Calcium 9.4 mg/dl (8.6-10.3); Carbon Dioxide 25.0 mmol/L (21-32); Chloride 109.0 mmol/L (98-107); Creatinine Clr Calc Pharmacy 48.5 ml/min; Glucose 151.0 mg/dl (70-99(Fasting)); Magnesium 1.7 mg/dl (1.7-2.4); Potassium 4.2 mmol/L (3.5-5.1); Sodium 139.0 mmol/L (136-145)
--- NOTE | 2025-06-05 11:09 | Vascular Medicine ProgressNote ---
Date of Service June 05, 2025 Assessment & Plan (1) Peripheral vascular disease of lower extremity with ulceration: Plan: Dobutamine stress echo shows no sign of ischemia. Vein mapping shows suitable left saphenous vein. Will plan left leg femoral to popliteal/tibial bypass graft tomorrow. Will need ICU postop. NPO after midnight. Ancef 2gm in preop. Risks/goals/alternatives discussed including but not limited to bleeding, infection, need for further procedures, limb loss, . Patient understands the seriousness of the situation and chooses to proceed. All questions were answered. Left leg marked. Admission and Anticipated Discharge Date Admission Date: May 26, 2025 Subjective No new issues. Visited with her and her [id number] this morning. Had pain in left foot last night. Physical Exam Physical Exam: unchanged. Results & Data Vital Signs (Past 12 Hours) Vital Signs Temp Pulse Pulse Resp BP BP Pulse Ox 06/05/25 10:48 36.5 C 53 L 18 133/65 99 06/05/25 08:00 54 L 06/05/25 07:09 36.7 C 58 L 18 121/56 L 97 06/05/25 03:06 36.7 C 61 18 115/59 L 99 06/05/25 00:00 63 O2 Del Method 06/05/25 10:48 Room Air 06/05/25 08:00 06/05/25 07:09 Room Air 06/05/25 03:06 Room Air 06/05/25 00:00 PG Care Time/CCT Total # of Minutes Spent Total Time Spent with Patient: Total time spent is greater than 50% in coordination of care (as documented) at patient's floor/unit and/or counseling patient: Coding Level of Care Code 24228 SUB INP/OBS CARE 3/50MIN Diagnoses Peripheral vascular disease of lower extremity with ulceration I73.9; L97.909
--- NOTE | 2025-06-05 17:08 | Hospitalist Progress Note ---
Date of Service June 05, 2025 Assessment & Plan (1) Cellulitis of left lower extremity: (2) T2DM (type 2 diabetes mellitus): (3) Diabetic neuropathy: (4) HTN (hypertension): (5) Primary hyperparathyroidism: (6) HLD (hyperlipidemia): (7) Anemia: (8) Neutropenia: Plan 84-year-old female with significant past medical history of T2DM, diabetic peripheral neuropathy, HTN, HLD, hypothyroidism, primary hyperparathyroidism, diabetic nonproliferative retinopathy, mild mitral valve stenosis, lumbar spinal stenosis admitted for multiple non healing L foot wounds with associated redness. 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 Medrano - no surgical debridement necessary, highly suspicious of charcot arthropathy consult wound nurse for treatment/follow up - [place] w/ betadine, allow to dry, cover with optifoam, change daily MRSA swab if negative no indication for mrsa coverage given low risk Vascular Arterial duplex reviewed and consulted w/ vasc. surg. - Discussed w/ vasc. surg. Dr. Perdomo - pt is now s/p angiogram, will need bypass - will need vein mapping and cardiac stress test prior to surgery. Vein mapping and stress test (06/04) negative, plan for fem-pop bypass for tomorrow #Anemia, chronic Pt has been anemia since March of 2024 per [facility] review, lows of 8 after acute gallbladder surgery currently 8.4and 25.4 anemia panel including iron profile, b12, folate unremarkable retic ct, [id number], tsh/t4, LDH reviewed peripheral smear reviewed: Peripheral smear for review:1. Normochromic/macrocytic red blood cells, markedly reduced numbers of cytologically unremarkable PMN leukocytes, unremarkable lymphocytes, unremarkable monocytes and unremarkable platelets are all seen.#2. Blasts, schistocytes and spherocytes are all not seen.#3. Although the cytologic signs of sepsis are not seen, it should be noted that this patient has severe neutropenia with an absolute neutrophile count of 0.81 x 10 to the ninth per liter.#4. The cause of this patient's absolute neutropenia is left for clinical correlation.#5. Review of the electronic medical record indicates the patient has unremarkable levels of vitamin B12, folate, and iron studies suggesting the patient's anemia is anemia of chronic disease. will likely need hematology referral as outpt, pt reports chronic fatigue, denies s/sx of bleeding, last c scope was 4 years ago, pt continues to receive them due to strong family hx #Neutropenia pt with absolute neutrophil count low, present since 05/2024 post gallbladder surgery peripheral smear as above pt likely to need hematology referral as outpt #T2DM with neuropathy, retinopathy controlled for age, last a1c 7.7 in January, A1c this admission 8.1. lantus/novolog per protocol hold metformin, glimepiride #HTN chronic, stable, although BPs fluctuates continue atenolol and decrease enalapril dose 20mg--->10 mg hold HCTZ for now given hypercalc and known primary hyperparathyroidism pt previously follow endo in [place] who recommended discontinuing hctz, pt reports resuming it due to some lower ext edema #Hypercalcemia #Primary Hyperparathyroidism with hx of R superior parathyroidectomy in 2007 had follow [facility] at [place], last seen in 2019, recommend re establishing for monitoring of calcium levels avoid calcium supplements which can also be found in daily MVI #Chronic diarrhea: felt 2/2 hx of R hemicolectomy as well as last years gallbladder surgery, bowels always loose, was recently prescribe cholestyramine but didn't start yet she states some constipation now. Will observe Consult PT Trial low dose Cymbalta and Lyrica for severe neuropathic pain Pt stable for OR tomorrow. #DVT ppx: SQ Lovenox FULL CODE Admission and Anticipated Discharge Date Admission Date: May 26, 2025 Subjective Chart, data and VS reviewed. Pt seen at bedside. Had pain in the left leg last night. Pt scheduled for left leg femoral to popliteal/tibial bypass graft tomorrow. Dobutamine stress echo was negative for ischemia. Needs ICU post op. Review of Systems Review of Systems: Constitutional- no fever; no chills Pulmonary- no cough, no wheezing, no shortness of breath Cardiac- no chest pain, no palpitations, no orthopnea, no dependent edema GI- no nausea, no vomiting, no diarrhea, no melena, no hematochezia Physical Exam Physical Exam: General- adult elderly female seen at bedside. chronic ill appearance Eyes- PERRL, EOMI Neck- supple, no JVD, Lungs- clear to auscultation and percussion Heart- regular rhythm; no murmur, no gallop, no rub appreciated Abdomen- normal bowel sounds, soft, nontender, no masses or hepatosplenomegaly Extremities- Venous stasis both legs. Has several scattered diabetic ulcers on the extremities. L medial ankle/,L3rd distal toe, developing blister to lateral 4th toe, small blood bulla to distal 5th toe and lateral ankle wound None are draining or seem to be actively infected. Has erythema to both lower extremities but resolves when she is supine. Neuro- alert, oriented x 3; PERRL, EOMI; no facial palsy; no dysarthria; Skin- warm & dry Results & Data Results & Data Vital Signs (Past 12 Hours) Vital Signs Temp Pulse Pulse Resp BP BP Pulse Ox 06/05/25 16:00 36.7 C 54 L 18 107/47 L 97 06/05/25 14:00 57 L 06/05/25 10:48 36.5 C 53 L 18 133/65 99 06/05/25 08:00 54 L 06/05/25 07:09 36.7 C 58 L 18 121/56 L 97 O2 Del Method 06/05/25 16:00 Room Air 06/05/25 14:00 06/05/25 10:48 Room Air 06/05/25 08:00 06/05/25 07:09 Room Air Diagnostic Findings Laboratory Results WBC 5.98 K/ul (4.8-10.8) 06/05/25 06:20 RBC 2.31 M/uL (4.20-5.40) L 06/05/25 06:20 Hgb 8.4 g/dl (12.0-16.0) L 06/05/25 06:20 Hct 25.4 % (37.0-47.0) L 06/05/25 06:20 MCV 110.0 fL (80.0-100.0) H 06/05/25 06:20 MCH 36.4 pg (25.0-34.0) H 06/05/25 06:20 MCHC 33.1 g/dL (32.0-36.0) 06/05/25 06:20 RDW Std Deviation 64.7 fL (36.4-46.3) H 06/05/25 06:20 RDW Coeff of Lynda 16.2 % (11.5-14.5) H 06/05/25 06:20 Plt Count 210 K/uL (130-400) 06/05/25 06:20 MPV 10.9 fL (9.4-12.4) 06/05/25 06:20 Reticulocyte % (Auto) 2.87 % (0.50-2.00) H 05/27/25 07:33 Reticulocyte # 0.060 10^6/uL (0.020-0.100) 05/27/25 07:33 Neutrophils % (Manual) 4 % 05/31/25 06:24 Lymphocytes % (Manual) 52 % 05/31/25 06:24 Monocytes % (Manual) 6 % 05/31/25 06:24 Eosinophils % (Manual) 2 % 05/31/25 06:24 Basophils % (Manual) 1 % 05/31/25 06:24 Neutrophils # (Manual) 0.24 K/uL (1.40-6.50) L 05/31/25 06:24 Total Absolute Neuts 0.24 K/uL (1.4-6.5) L* 05/31/25 06:24 Lymphocytes # (Manual) 3.07 K/uL (1.2-3.4) 05/31/25 06:24 Total Abs Lymphocytes 5.14 K/uL (1.2-3.4) H 05/31/25 06:24 Monocytes # (Manual) 0.35 K/uL (0.11-0.59) 05/31/25 06:24 Eosinophils # (Manual) 0.12 K/uL (0-0.50) 05/31/25 06:24 Basophils # (Manual) 0.06 K/uL (0-0.2) 05/31/25 06:24 Large Granular Lymphs 35 % 05/31/25 06:24 # Lrg Granular Lymphs 2.07 K/uL 05/31/25 06:24 Smudge Cells Present 05/27/25 07:33 RBC Morphology Unremarkable 05/26/25 14:32 Polychromasia 1+ 05/31/25 06:24 Peripher Smr Path Cons 05/26/25 14:32 Haptoglobin 58 mg/dL (43-212) 05/27/25 07:33 Sodium 139 mmol/L (136-145) 06/05/25 06:20 Potassium 4.2 mmol/L (3.5-5.1) 06/05/25 06:20 Chloride 109 mmol/L (98-107) H 06/05/25 06:20 Carbon Dioxide 25 mmol/L (21-32) 06/05/25 06:20 Anion Gap 5 (3-11) 06/05/25 06:20 BUN 25 mg/dl (6-23) H 06/05/25 06:20 Creatinine 0.84 mg/dl (0.6-1.2) 06/05/25 06:20 Est Cr Clr Drug Dosing 48.5 ml/min 06/05/25 06:20 eGFR 68.48 06/05/25 06:20 BUN/Creatinine Ratio 29.8 (10-20) H 06/05/25 06:20 Glucose 151 mg/dl (70-99(Fasting)) H 06/05/25 06:20 POC Glucose 178 mg/dl (70-99) H 06/05/25 15:58 Estimat Average Glucose 186 mg/dl 05/27/25 07:33 Hemoglobin A1c 8.1 % (4.5-5.6) H 05/27/25 07:33 Lactate 1.5 mmol/L (0.4-2.0) 05/26/25 14:32 Calcium 9.4 mg/dl (8.6-10.3) 06/05/25 06:20 Ionized Calcium 1.44 mmol/L (1.12-1.32) H 05/26/25 16:35 Phosphorus 3.6 mg/dl (2.5-4.9) 06/05/25 06:20 Magnesium 1.7 mg/dl (1.7-2.4) 06/05/25 06:20 Iron 98 mcg/dl (35-150) 05/26/25 14:32 TIBC 336 mcg/dl (250-450) 05/26/25 14:32 Transferrin 240 mg/dl (200-360) 05/26/25 14:32 Transferrin % Sat 29 % (15-50) 05/26/25 14:32 Ferritin 48.6 ng/ml (8-388) 05/26/25 14:32 Total Bilirubin 0.4 mg/dl (0.2-1.0) 05/27/25 07:33 AST 13 U/L (13-39) 05/27/25 07:33 ALT 13 U/L (7-52) 05/27/25 07:33 Alkaline Phosphatase 58 U/L (34-104) 05/27/25 07:33 Lactate Dehydrogenase 129 U/L (86-244) 05/27/25 07:33 C-Reactive Protein < 0.50 mg/dl (0-0.5) 05/26/25 14:32 Total Protein 5.7 gm/dl (6.0-8.3) L 05/27/25 07:33 Albumin 3.5 gm/dl (3.4-5.0) 05/27/25 07:33 Globulin 2.2 gm/dl (2.5-4.0) L 05/27/25 07:33 Albumin/Globulin Ratio 1.6 (0.9-2) 05/27/25 07:33 Vitamin B12 533 pg/ml (180-914) 05/26/25 14:32 Folate > 22.30 ng/ml (>5.38) 05/26/25 14:32 Procalcitonin 0.02 ng/ml (0-0.5) 05/26/25 14:32 TSH 4.312 uIu/ml (0.300-4.500) 05/27/25 07:33 Free T4 1.16 ng/dl (0.61-1.60) 05/27/25 07:33 Nasal Screen MRSA (PCR) Negative (Negative) 05/26/25 Unknown Blood Type O Positive 06/05/25 14:03 Antibody Screen NEGATIVE 06/05/25 14:03 Impressions Foot X-Ray 05/26/25 14:29 Study: Left ankle and left foot 3 views History: Pain Comparison: None Findings: There is no acute fracture or dislocation. Alignment is anatomic. Joint spaces are well maintained. Swelling and mild soft tissue irregularity about the medial aspect of the ankle compatible with known ulcer. Bone mineralization is decreased. Impression: No acute bony abnormality Electronically signed by Ilia Ortega 05-26-2025 4:35 PM Ankle X-Ray 05/26/25 14:34 Study: Left ankle and left foot 3 views History: Pain Comparison: None Findings: There is no acute fracture or dislocation. Alignment is anatomic. Joint spaces are well maintained. Swelling and mild soft tissue irregularity about the medial aspect of the ankle compatible with known ulcer. Bone mineralization is decreased. Impression: No acute bony abnormality Electronically signed by Ilia Ortega 05-26-2025 4:35 PM Duplex Scan Lower Extremity Artery 05/26/25 16:50 EXAM: US arterial duplex LE BI CLINICAL HISTORY: foot wounds, erythema. TECHNIQUE: Ultrasound examination of the bilateral lower extremities arteries with ankle brachial indices was performed in real time and duplex. One or more of the following were performed- spectral analysis, waveform analysis, and pulsed Doppler. COMPARISON: None. FINDINGS: Vessel Flow Pattern Right Peak Velocity Right (cm/sec) Flow Pattern Left Peak Velocity Left (cm/sec) Common Femoral Artery (AVIONICS ELECTRONICS TECHNICIAN) Biphasic 140 Biphasic 80.2 Deep Femoral Artery (DPA) Biphasic 65.8 Biphasic 41.2 Superficial Femoral Artery (SFA) Biphasic Proximal:97.1 Mid: 78.6 Distal: 102.4 Biphasic Proximal:64 Mid: 47.2 Distal: 52.7 Popliteal Artery (POP A) Biphasic Proximal:180 Distal: 226.3 Monophasic 39.3 Anterior Tibial Artery (ASSISTANT PROFESSOR OF GEOGRAPHY) Biphasic Proximal:61 Mid: 45.2 Distal: 54.9 Monophasic Proximal:27 Mid: 68.8 Distal: 27.1 Posterior Tibial Artery (ASSISTANT PROFESSOR OF GEOGRAPHY) Biphasic Proximal:60.5 Mid: 54.3 Distal: 76 Monophasic Proximal:64.2 Mid: 28.5 Distal: 25.1 Peroneal Artery Monophasic Proximal:55.2 Mid: 41.8 Distal: 51.5 Monophasic Mid: 15.6 Distal: 16.7 Dorsalis Pedis Artery (DPA) Monophasic 21 Monophasic 42.7 Ankle brachial indiex on left side measuring 0.73. TBI measures 0.61 on right and 0.71 on left side. Diffuse atherosclerosis changes with increased intima/media thickness and wall calcifications involving both lower limb arteries. Biphasic waveform pattern observed throughout both common ,superficial , deep femoral , right popliteal , right anterior and posterior tibial arteries. Monophasic waveform pattern observed throughout, left popliteal , left anterior ,posterior tibial , both peroneal and both dorsalis pedis arteries. Mild stenosis at right popliteal artery with high PSV reaching 80 and 226.3cm/sec at its proximal and distal parts respectively. The peak systolic velocities of other arteries are within normal limit bilaterally. Collateral Circulation: No significant collateral circulation . IMPRESSION: 1. Diffuse atherosclerosis changes of both lower limb arteries, more evident at popliteal and infrapopliteal arteries associated with bilateral mild chronic ischemia more on the right side. 2. Mild stenosis at right politeal artery. 3. Low TBI on right side and low SETH on left side 4. Clinical correlation and further evaluation with CT Angiography are advised. Electronically signed by Juan Merchant 05-27-2025 12:50 PM Aorta Iliac Ultrasound 05/31/25 10:07 ULTRASOUND OF THE ABDOMINAL AORTA CLINICAL HISTORY: Atherosclerotic vascular disease. Peripheral arterial disease. Foot ulcers. COMPARISON STUDY: Abdominal CT dated 05/07/2024. TECHNIQUE: Multiple mack scale, color Doppler, and spectral Doppler sonograms of the abdominal aorta and iliac arteries are performed. Images are reviewed in the transverse and longitudinal planes. FINDINGS: There is moderate to advanced atherosclerotic calcification and irregularity noted throughout the abdominal aorta. The proximal abdominal aorta measures 1.9 x 1.9 cm (AP x transverse), the mid abdominal aorta measures 1.5 x 1.5 cm, and the distal abdominal aorta measures 1.5 x 1.4 cm. The right common iliac artery measures up to 1.0 cm and the left common iliac artery measures up to 0.8 cm. Normal flow and spectral Doppler waveforms are seen within the aorta. Velocities within the abdominal aorta measure up to 112 cm/s. IMPRESSION: 1. Atherosclerotic plaque with no sonographic evidence of abdominal aortic aneurysm. 2. The abdominal aorta and iliac arteries are patent. ACT 112: Negative or not required by law. Electronically signed by: Erick Stratton M.D. 05/31/2025 11:57 AM Extremity Venous Study 06/04/25 08:57 EXAM: US venous mapping LE BI CLINICAL HISTORY: preop for lower extemity bypass TECHNIQUE: Real-time grayscale and Doppler ultrasound examination of the bilateral lower extremity superficial venous systems was performed to evaluate vein caliber and suitability for potential bypass conduit. Measurements were obtained at multiple standard levels. COMPARISON: None FINDINGS: RIGHT LOWER EXTREMITY (Great Saphenous Vein - GSV): Groin level: 3.8 mm diameter; length 14.0 cm Proximal thigh: 2.5 mm diameter; length 13.4 cm Mid-thigh: 2.9 mm diameter; length 12.2 cm Distal thigh: 1.8 mm diameter; length 14.4 cm Knee (medial): 2.9 mm diameter; length 8.7 cm Proximal calf: 2.0 mm diameter; length 6.5 cm Mid-calf: 1.5 mm diameter; length 6.4 cm Distal calf: Not visualized Ankle level: Not visualized RIGHT LOWER EXTREMITY (Lesser Saphenous Vein - LSV): Behind knee: 3.0 mm diameter; length 4.1 cm Proximal calf: 3.2 mm diameter; length 1.8 cm Mid-calf: 2.8 mm diameter; length 1.7 cm Distal calf: 2.2 mm diameter; length 3.0 cm Ankle level: Not visualized LEFT LOWER EXTREMITY (Great Saphenous Vein - GSV): Groin level: 4.9 mm diameter; length 12.3 cm Proximal thigh: 3.2 mm diameter; length 10.8 cm Mid-thigh: 3.8 mm diameter; length 13.0 cm Distal thigh: 4.1 mm diameter; length 14.9 cm Knee: 3.5 mm diameter; length 10.0 cm Proximal calf: 2.3 mm diameter; length 7.1 cm Mid-calf: 2.0 mm diameter; length 8.7 cm Distal calf: 2.0 mm diameter; length 8.9 cm Ankle level: 3.4 mm diameter; length 7.1 cm LEFT LOWER EXTREMITY (Lesser Saphenous Vein - LSV): Behind knee: 3.8 mm diameter; length 6.9 cm Proximal calf: 3.6 mm diameter; length 7.8 cm Mid-calf: Not visualized Distal calf: Not visualized Ankle level: Not visualized IMPRESSION: 1. Right Great Saphenous Vein (GSV): Segmental caliber ranges from 1.5 mm to 3.8 mm with proximal thigh segments measuring 2.5 mm, potentially suitable for conduit in selected segments. 2. Caliber below the mid-thigh is borderline to suboptimal, particularly distally. 3. Right Lesser Saphenous Vein (LSV): Segmental diameters range from 2.2 mm to 3.2 mm. Visualization is limited distally. 4. Left Great Saphenous Vein (GSV): Segmental caliber ranges from 2.0 mm to 4.9 mm. Overall caliber and continuity suggest suitability for conduit, particularly from groin through knee levels. 5. Left Lesser Saphenous Vein (LSV): Segmental diameters range from 3.6 mm to 3.8 mm proximally. Visualization limited distally. RECOMMENDATION: The left great saphenous vein (GSV) demonstrates the most favorable caliber and continuity for potential bypass conduit use. The right GSV may be considered in proximal segments; however, distal segments show borderline to suboptimal caliber. Lesser saphenous veins bilaterally may serve as secondary options in limited segments. Electronically signed by Juan Merchant 06-04-2025 5:13 PM Chest X-Ray 06/04/25 13:56 XR chest 2V PA/lateral CLINICAL HISTORY: preop eval COMPARISON STUDY: None FINDINGS: Heart size and pulmonary vasculature are normal. No consolidation or pleural effusion. There are mild thoracic spine degenerative changes. IMPRESSION: No acute findings. ACT 112: Negative or not required by law. Electronically signed by: Vicente Schafer M.D. 06/04/2025 2:58 PM
[2025-06-05] MEDS ORDERED: Nursing to Pharmacy Communication SCH (20:15)
[2025-06-05] MEDS: LANTUS PER UNIT CHARGE SQ ONE (20:30)
[2025-06-06] MEDS: INSULIN ASPART PER UNIT CHARGE SC SCH (06:09)
[2025-06-06 06:22] LABS: Hematocrit (blood only) 25.7 % (37.0-47.0); Hemoglobin 8.2 g/dl (12.0-16.0); Mean Corpuscular Hemoglobin 35.3 pg (25.0-34.0); Mean Corpuscular Volume 110.8 fL (80.0-100.0); Platelet Count 200 K/uL (130-400); RDW Standard Deviation 66.7 fL (36.4-46.3); Red Blood Count 2.32 M/uL (4.20-5.40); White Blood Count 6.00 K/ul (4.8-10.8)
[2025-06-06 06:39] LABS: Anion Gap 4.0 (3-11); Calcium 9.2 mg/dl (8.6-10.3); Carbon Dioxide 25.0 mmol/L (21-32); Chloride 110.0 mmol/L (98-107); Potassium 4.0 mmol/L (3.5-5.1); Sodium 139.0 mmol/L (136-145)
[2025-06-06 06:45] LABS: Blood Urea Nitrogen 23.0 mg/dl (6-23); Creatinine Clr Calc Pharmacy 52.2 ml/min; Glucose 155.0 mg/dl (70-99(Fasting))
[2025-06-06] MEDS ORDERED: PROPOFOL IV EMULSION 10 MG/ML 20 ML VIAL IV ONE (07:17)
[2025-06-06] MEDS ORDERED: LIDOCAINE 2% 2 ML VIAL/AMP(20MG/ML) INFIL ONE (07:17)
[2025-06-06] MEDS ORDERED: ONDANSETRON INJ 2 MG/ML 2 ML VIAL ONE (07:17)
[2025-06-06] MEDS ORDERED: PHENYLEPHRINE HCL 25 MG/250 ML NSS IV ONE (07:17)
[2025-06-06] MEDS ORDERED: ROCURONIUM BROMIDE 10 MG/ML 5 ML VIAL IV ONE ×2 (07:17→12:44)
[2025-06-06] MEDS ORDERED: HEPARIN SOD (PORCINE) 1000 UNIT/ML ONE (07:18)
--- NOTE | 2025-06-06 09:20 | Cardiology Progress Note ---
Date of Service June 06, 2025 Assessment & Plan (1) Preop cardiovascular exam: Plan Patient is an 84-year-old female Preoperative cardiovascular evaluation - planned surgical revascularization left lower extremity. * No prior history of RI/active ischemia, decompensated CHF or unstable arrhythmias. * Mild aortic stenosis on last echocardiogram with preserved LV systolic function January 2025. * Normal renal function * Dobutmine Stress ECHO - negative for ischemia * Pt in OR * Will follow up with patient - post operatively Dank Lin Admission and Anticipated Discharge Date Admission Date: May 26, 2025 Subjective Events Overnight: None reported Review of Systems Review of Systems: All systems reviewed & are unremarkable except as noted in HPI & below Physical Exam Physical Exam: Patient in OR Results & Data Vital Signs (Past 12 Hours) Vital Signs Temp Pulse Resp BP Pulse Ox O2 Del Method 06/06/25 09:08 36.7 C 60 16 152/99 H 97 Room Air 06/06/25 07:16 36.8 C 55 L 19 126/63 96 Room Air 06/06/25 02:51 36.7 C 61 18 115/62 96 Room Air 06/05/25 22:39 36.8 C 63 20 130/60 96 Room Air Laboratory Results CBC 06/06/25 Range/Units 05:35 WBC 6.00 (4.8-10.8) K/ul RBC 2.32 L (4.20-5.40) M/uL Hgb 8.2 L (12.0-16.0) g/dl Hct 25.7 L (37.0-47.0) % Plt Count 200 (130-400) K/uL Comprehensive Metabolic Panel 06/06/25 Range/Units 05:35 Sodium 139 (136-145) mmol/L Potassium 4.0 (3.5-5.1) mmol/L Chloride 110 H (98-107) mmol/L Carbon Dioxide 25 (21-32) mmol/L BUN 23 (6-23) mg/dl Creatinine 0.78 (0.6-1.2) mg/dl Glucose 155 H (70-99(Fasting)) mg/dl Calcium 9.2 (8.6-10.3) mg/dl Intake and Output 06/05/25 06/06/25 06/06/25 22:59 06:59 14:59 Intake Total 300 / 780 Balance 300 / 780 Intake: Oral 300 / 780 Other: # Unmeasured Voids 1 1 Weight 66.5 kg Weight Measurement Method [facility] Medications Administered Current Inpatient Medications Acetaminophen (Acetaminophen 325 Mg Tab) 650 mg PO Q4H PRN PRN Reason: Pain or Fever Stop: 06/25/25 18:41 Last Admin: 06/01/25 14:30 Dose: 650 mg Aspirin (Aspirin 81 Mg Ectab) 81 mg PO DAILY VAL Stop: 06/26/25 08:59 Last Admin: 06/06/25 09:10 Dose: Not Given Atenolol (Atenolol 50 Mg Tablet) 100 mg PO DAILY VAL Stop: 06/26/25 08:59 Last Admin: 06/06/25 09:10 Dose: Not Given Atorvastatin Calcium (Atorvastatin 40 Mg Tab) 40 mg PO HS [facility] Stop: 06/25/25 20:59 Last Admin: 06/05/25 20:30 Dose: 40 mg Dextrose (Dextrose 50% 50 Ml Syringe) 25 - 50 ml IV UD PRN; Protocol PRN Reason: Hypoglycemia Protocol Stop: 06/25/25 18:41 Duloxetine HCl (Duloxetine Hcl 20 Mg Cap) 20 mg PO HS [facility] Stop: 06/26/25 19:49 Last Admin: 06/05/25 20:30 Dose: 20 mg Enalapril Maleate (Enalapril Maleate 10 Mg Tab) 10 mg PO DAILY [facility] Stop: 06/28/25 08:59 Last Admin: 06/06/25 09:10 Dose: Not Given Enoxaparin Sodium (Enoxaparin Inj 40 Mg/0.4 Ml Syr) 40 mg SQ HS VAL Stop: 06/25/25 20:59 Last Admin: 06/01/25 20:45 Dose: 40 mg Famotidine (Famotidine 20 Mg Tab) 20 mg PO DAILY PRN PRN Reason: Heartburn Stop: 06/25/25 18:41 Glucagon (Glucagon For Inj 1 Mg Vial) 1 mg SQ UD PRN; Protocol PRN Reason: Hypoglycemia Protocol Stop: 06/25/25 18:41 Glucose (Glucose 40% Gel 15 Gm Tube) 15 - 30 gm PO UD PRN; Protocol PRN Reason: Hypoglycemia Protocol Stop: 06/25/25 18:41 Glucose (Glucose 10 Tab/Tube) 4 - 8 tab PO UD PRN; Protocol PRN Reason: Hypoglycemia Protocol Stop: 06/25/25 18:41 Insulin Aspart (Insulin Aspart Per Unit Charge) 0 units SC Q6 [facility] Stop: 07/06/25 05:59 Last Admin: 06/06/25 06:09 Dose: 1 units Insulin Glargine (Lantus Per Unit Charge) 0 - 6 units SQ BID [facility] Stop: 06/25/25 20:59 Last Admin: 06/06/25 09:10 Dose: Not Given Iodixanol (Visipaque) 54 ml IV UD PRN PRN Reason: Interaction Checking Stop: 06/07/25 15:54 Lactobacillus Acidophilus (Advanced Probiotic 625 Mg Capsule) 1,250 mg PO DAILY [facility] Stop: 06/26/25 08:59 Last Admin: 06/06/25 09:10 Dose: Not Given Levothyroxine Sodium (Levothyroxine Sodium 75 Mcg Tablet) 75 mcg PO DAILYBB [facility] Stop: 06/26/25 06:29 Last Admin: 06/06/25 06:06 Dose: Not Given Melatonin (Melatonin 3 Mg Tab) 3 mg PO HS PRN PRN Reason: Sleep Stop: 06/25/25 18:41 Last Admin: 06/05/25 23:50 Dose: 3 mg Miscellaneous (Carbohydrates For Hypoglycemia ) 15 - 30 gm PO UD PRN PRN Reason: Hypoglycemia Protocol Stop: 06/25/25 18:41 Ondansetron HCl (Ondansetron Inj 2 Mg/Ml 2 Ml Vial) 4 mg IV Q6H PRN PRN Reason: Nausea Stop: 06/25/25 18:41 Oxycodone HCl (Oxycodone Hcl Ir 5 Mg Tab (Immediate Release)) 5 mg PO Q4H PRN PRN Reason: Mod-Sev Pain (Scale 4-10) Stop: 06/09/25 18:41 Last Admin: 06/05/25 23:50 Dose: 5 mg Polyethylene Glycol (Polyethylene (Miralax) 17 Gm Pack) 17 gm PO DAILY PRN PRN Reason: Constipation Stop: 06/25/25 18:41 Last Admin: 06/01/25 12:37 Dose: 17 gm Pregabalin (Pregabalin 25 Mg Cap) 25 mg PO BID [facility] Stop: 06/27/25 20:59 Last Admin: 06/06/25 09:10 Dose: Not Given Sennosides (Senna 8.6 Mg Tab) 8.6 mg PO QAM [facility] Stop: 06/29/25 08:59 Last Admin: 06/06/25 09:10 Dose: Not Given PG Care Time/CCT Total # of Minutes Spent Total Time Spent with Patient: Total time spent is greater than 50% in coordination of care (as documented) at patient's floor/unit and/or counseling patient: Coding Level of Care Code 40978 SUB INP/OBS CARE 12/08MIN Diagnoses Preop cardiovascular exam Z01.810
[2025-06-06] MEDS ORDERED: SODIUM CHLORIDE 0.9% 100 ML IV PRN (09:32)
--- NOTE | 2025-06-06 09:43 | Anesthesiology Consultation ---
Date of Service June 06, 2025 Assessment & Plan Chart Review Chart Review: Acceptable Risk for Surgery and Patient NOT seen in Pre Admission Testing Consults Requested none ASA ASA4 Proposed Anesthesia Anesthesia Type: General Anesthesia Line Insertion: Arterial line Risk / Benefits Reviewed With: PT / POA / Parent / Guardian, Accepts Plan and Informed Consent Obtained History Surgery Operation Date: 06/03/25 12:30 Proposed Procedures p Left Lower Extremity Angiogram, Possible Stent Via Right Femoral - Akira Perdomo MD Operation Date: 06/06/25 09:40 Proposed Procedures p Left Femoral Tibial Bypass - Akira Perdomo MD Height/Weight Height: 5 ft 7 in Weight: 66.5 kg Allergies Allergy/AdvReac Type Severity Reaction Status Date / Time No Known Allergies Allergy Unknown Verified 05/26/25 16:00 Medications Home Medications Medication Instructions Recorded Confirmed Last Taken aspirin 81 mg tablet,delayed 81 mg PO DAILY 05/26/25 05/26/25 05/26/25 release atenolol 100 mg tablet 100 mg PO DAILY 05/26/25 05/26/25 05/26/25 atorvastatin 40 mg tablet 40 mg PO HS 05/26/25 05/26/25 05/25/25 benazepril 40 mg tablet 40 mg PO DAILY 05/26/25 05/26/25 05/26/25 cholestyramine (with sugar) 4 gram 1 ea PO BID 05/26/25 05/26/25 Unknown powder for susp in a packet glimepiride 4 mg tablet 4 mg PO DAILYBB 05/26/25 05/26/25 05/26/25 hydrochlorothiazide 25 mg tablet 25 mg PO DAILY 05/26/25 05/26/25 05/26/25 levothyroxine 75 mcg tablet 75 mcg PO DAILYBB 05/26/25 05/26/25 05/26/25 metformin 500 mg tablet,extended 1,000 mg PO BID 05/26/25 05/26/25 05/26/25 08:00 release 24 hr multivitamin 1 tab PO DAILY 05/26/25 05/26/25 05/26/25 vit C 250 mg-vit E 90 mg-zinc 40 1 tab PO BID 05/26/25 05/26/25 05/26/25 08:00 mg-copper 1 [id number] capsule (PreserVision AREDS-2) Active Medications Generic Name Dose Route Start Last Admin Trade Name Ann PRN Reason Stop Dose Admin Acetaminophen 650 mg 05/26/25 18:42 06/01/25 14:30 Acetaminophen 325 Mg Tab PO 06/25/25 18:41 650 mg Q4H PRN Administration Pain or Fever Aspirin 81 mg 05/27/25 09:00 06/06/25 09:10 Aspirin 81 Mg Ectab PO 06/26/25 08:59 Not Given DAILY VAL Atenolol 100 mg 05/27/25 09:00 06/06/25 09:10 Atenolol 50 Mg Tablet PO 06/26/25 08:59 Not Given DAILY VAL Atorvastatin Calcium 40 mg 05/26/25 21:00 06/05/25 20:30 Atorvastatin 40 Mg Tab PO 06/25/25 20:59 40 mg HS VAL Administration Duloxetine HCl 20 mg 05/27/25 19:50 06/05/25 20:30 Duloxetine Hcl 20 Mg Cap PO 06/26/25 19:49 20 mg HS VAL Administration Enalapril Maleate 10 mg 05/29/25 09:00 06/06/25 09:10 Enalapril Maleate 10 Mg Tab PO 06/28/25 08:59 Not Given DAILY VAL Enoxaparin Sodium 40 mg 05/26/25 21:00 06/01/25 20:45 Enoxaparin Inj 40 Mg/0.4 Ml Syr SQ 06/25/25 20:59 40 mg HS VAL Administration Insulin Aspart 0 units 06/06/25 06:00 06/06/25 06:09 Insulin Aspart Per Unit Charge SC 07/06/25 05:59 1 units Q6 VAL Administration Insulin Glargine 0 - 6 units 05/26/25 21:00 06/06/25 09:10 Lantus Per Unit Charge SQ 06/25/25 20:59 Not Given BID VAL Lactobacillus Acidophilus 1,250 mg 05/27/25 09:00 06/06/25 09:10 Advanced Probiotic 625 Mg Capsule PO 06/26/25 08:59 Not Given DAILY VAL Levothyroxine Sodium 75 mcg 05/27/25 06:30 06/06/25 06:06 Levothyroxine Sodium 75 Mcg Tablet PO 06/26/25 06:29 Not Given DAILYBB VAL Melatonin 3 mg 05/26/25 18:42 06/05/25 23:50 Melatonin 3 Mg Tab PO 06/25/25 18:41 3 mg HS PRN Administration Sleep Oxycodone HCl 5 mg 05/26/25 18:42 06/05/25 23:50 Oxycodone Hcl Ir 5 Mg Tab (Immediate Release) PO 06/09/25 18:41 5 mg Q4H PRN Administration Mod-Sev Pain (Scale 4-10) Polyethylene Glycol 17 gm 05/26/25 18:42 06/01/25 12:37 Polyethylene (Miralax) 17 Gm Pack PO 06/25/25 18:41 17 gm DAILY PRN Administration Constipation Pregabalin 25 mg 05/28/25 21:00 06/06/25 09:10 Pregabalin 25 Mg Cap PO 06/27/25 20:59 Not Given BID VAL Sennosides 8.6 mg 05/30/25 09:00 06/06/25 09:10 Senna 8.6 Mg Tab PO 06/29/25 08:59 Not Given QAM VAL NPO Date Last Intake of Fluids: 06/05/25 Time Last Intake of Fluids: 21:00 Date Last Intake of Solids: 06/05/25 Time Last Intake of Solids: 16:30 Past Medical History Medical History Hypothyroidism Diabetic retinopathy Primary hyperparathyroidism T2DM (type 2 diabetes mellitus) HLD (hyperlipidemia) HTN (hypertension) anemia ASCVD Ao PVD Diabetic PN Exercise / Class Metabolic Activity III < 4 Walking/Shop/Light housework Past Family History Family History Mother Colorectal cancer Diabetes Father Colorectal cancer Sister Cancer lymphoma Sister Myocardial infarction Sister Rheumatoid arthritis Past Surgical History Surgical History Hx of tonsillectomy Hx of appendectomy Hx of parathyroidectomy R superior History of partial colectomy R hemicolectomy with ileocolic anastomosis Hx of endoscopic retrograde cholangiopancreatography Hx of cataract extraction Hx of cholecystectomy 04/2024 lap converted to open 2/2 serosal tear of stomach Past Anesthesia History No Hx of Anesthesia Complications and No Family Hx of Anesthesia Complications History of PONV No Hx of PONV and No Hx of Motion Sickness Social History Smoking Status: Former smoker Do You Dip or Chew Tobacco: No Hx Alcohol Use: No Hx Substance Use: No substance use type: does not use Physical Exam Vital Signs Last Vital Signs Temp 36.7 C 06/06/25 09:08 Pulse 60 06/06/25 09:08 Resp 16 06/06/25 09:08 BP 152/99 H 06/06/25 09:08 Pulse Ox 97 06/06/25 09:08 O2 Del Method Room Air 06/06/25 09:08 O2 Flow Rate 6 06/03/25 15:30 Constitutional no acute distress and not cachectic ENMT Mouth: no dentition abnormality Thyromental Distance: < 3.5 Finger Breadths Mallampati Class: II Neck normal visual inspection and trachea midline; neck extension not limited Respiratory normal respiratory effort Auscultation: lungs clear to auscultation bilaterally Cardiovascular Rate/Rhythm: regular rate and regular rhythm Heart Sounds: no murmur Vessels: no carotid bruit Musculoskeletal Spine: normal cervical ROM and no pain with cervical ROM Extremities: + extremities abnormal to inspection and full ROM of extremities Neurologic moves all extremities Motor/Sensory: + sensory deficit (Diabetic PN feet) Psychiatric Orientation: alert and oriented x 3 Testing Laboratory Results 06/06/25 05:35 06/06/25 05:35 Hemoglobin A1c 8.1 % (4.5-5.6) H 05/27/25 07:33 Blood Type O Positive 06/05/25 14:03 Antibody Screen NEGATIVE 06/05/25 14:03 05/26/25 14:38 Aerobic Blood Culture - Final Blood No growth in Aerobic bottle after 5 days. Anaerobic Blood Culture - Final No growth in Anaerobic bottle after 5 days. 05/26/25 14:32 Aerobic Blood Culture - Final Blood No growth in Aerobic bottle after 5 days. Anaerobic Blood Culture - Final No growth in Anaerobic bottle after 5 days. 05/26/25 Unknown Gram Stain - Final Ankle,Left Aerobic and Anaerobic Culture - Final Staphylococcus epidermidis 06/06/25 06/06/25 07:15 06:05 POC Glucose 152 H 178 H Electrocardiogram Date: 06/04/25 Findings: + SB @ (@ 55) Chest X-Ray Date: 06/04/25 Findings: + NAD Stress Test Date: 06/04/25 Type: DSE Findings: + WNL and + did not achieved max HR (77%) Resting EF: 65% Resting LV Function: normal Resting RWMA: + none Valvular Disease: no significant valvular disease moderate LVH Grade 1
[2025-06-06] MEDS: LACTATED RINGER'S 1,000 ML IV SCH (09:52)
[2025-06-06] MEDS ORDERED: ALBUMIN HUMAN 5% 12.5 GM/250 ML VIAL IV ONE (10:15)
--- NOTE | 2025-06-06 10:45 | History & Physical Bridge Note ---
Date of Service June 06, 2025 History & Physical Bridge Note I have examined the patient, reviewed the History & Physical and in the interval since the performance of the History & Physical I have noted the following changes of clinical significance: no changes noted Plan for left femoral to popliteal/tibial bypass today.
[2025-06-06] MEDS ORDERED: ceFAZolin 330 MG/ML 1 GM VIAL ONE ×3 (11:46→15:05)
--- NOTE | 2025-06-06 12:14 | Hospitalist Progress Note ---
Date of Service June 06, 2025 Assessment & Plan (1) Cellulitis of left lower extremity: (2) T2DM (type 2 diabetes mellitus): (3) Diabetic neuropathy: (4) HTN (hypertension): (5) Primary hyperparathyroidism: (6) HLD (hyperlipidemia): (7) Anemia: (8) Neutropenia: Plan 84-year-old female with significant past medical history of T2DM, diabetic peripheral neuropathy, HTN, HLD, hypothyroidism, primary hyperparathyroidism, diabetic nonproliferative retinopathy, mild mitral valve stenosis, lumbar spinal stenosis admitted for multiple non healing L foot wounds with associated redness. 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 Medrano - no surgical debridement necessary, highly suspicious of charcot arthropathy consult wound nurse for treatment/follow up - Denio w/ betadine, allow to dry, cover with optifoam, change daily MRSA swab if negative no indication for mrsa coverage given low risk Vascular Arterial duplex reviewed and consulted w/ vasc. surg. - Discussed w/ vasc. surg. Dr. Perdomo - pt is now s/p angiogram, will need bypass - will need vein mapping and cardiac stress test prior to surgery. Vein mapping and stress test (06/04) negative, plan for fem-pop bypass for today #Anemia, chronic Pt has been anemia since March of 2024 per epic review, lows of 8 after acute gallbladder surgery Hgb currently 8.2 anemia panel including iron profile, b12, folate unremarkable retic ct, [id number], tsh/t4, LDH reviewed peripheral smear reviewed: Peripheral smear for review:1. Normochromic/macrocytic red blood cells, markedly reduced numbers of cytologically unremarkable PMN leukocytes, unremarkable lymphocytes, unremarkable monocytes and unremarkable platelets are all seen.#2. Blasts, schistocytes and spherocytes are all not seen.#3. Although the cytologic signs of sepsis are not seen, it should be noted that this patient has severe neutropenia with an absolute neutrophile count of 0.81 x 10 to the ninth per liter.#4. The cause of this patient's absolute neutropenia is left for clinical correlation.#5. Review of the electronic medical record indicates the patient has unremarkable levels of vitamin B12, folate, and iron studies suggesting the patient's anemia is anemia of chronic disease. will likely need hematology referral as outpt, pt reports chronic fatigue, denies s/sx of bleeding, last c scope was 4 years ago, pt continues to receive them due to strong family hx #Neutropenia pt with absolute neutrophil count low, present since 05/2024 post gallbladder surgery peripheral smear as above pt likely to need hematology referral as outpt #T2DM with neuropathy, retinopathy controlled for age, last a1c 7.7 in January, A1c this admission 8.1. lantus/novolog per protocol hold metformin, glimepiride #HTN chronic, stable, although BPs fluctuates continue atenolol and decrease enalapril dose 20mg--->10 mg hold HCTZ for now given hypercalc and known primary hyperparathyroidism pt previously follow endo in [facility] who recommended discontinuing hctz, pt reports resuming it due to some lower ext edema #Hypercalcemia #Primary Hyperparathyroidism with hx of R superior parathyroidectomy in 2007 had follow [facility]o at [facility], last seen in 2019, recommend re establishing for monitoring of calcium levels avoid calcium supplements which can also be found in daily MVI #Chronic diarrhea: felt 2/2 hx of R hemicolectomy as well as last years gallbladder surgery, bowels always loose, was recently prescribe cholestyramine but didn't start yet she states some constipation now. Will observe Consult PT Trial low dose Cymbalta and Lyrica for severe neuropathic pain Pt stable for OR today for femoropopliteal bypass. Patient to be admitted to the ICU postop. #DVT ppx: SQ Lovenox FULL CODE Admission and Anticipated Discharge Date Admission Date: May 26, 2025 Subjective Chart data and vital signs reviewed. Patient seen at bedside with her spouse present. She is scheduled for the OR at 1030. No overnight events are reported. Still has pain in the left lower extremity but tolerable. Review of Systems Review of Systems: Constitutional- no fever; no chills Pulmonary- no cough, no wheezing, no shortness of breath Cardiac- no chest pain, no palpitations, no orthopnea, no dependent edema GI- no nausea, no vomiting, no diarrhea, no melena, no hematochezia Physical Exam Physical Exam: General- adult elderly female seen at bedside. chronic ill appearance Eyes- PERRL, EOMI Neck- supple, no JVD, Lungs- clear to auscultation and percussion Heart- regular rhythm; no murmur, no gallop, no rub appreciated Abdomen- normal bowel sounds, soft, nontender, no masses or hepatosplenomegaly Extremities- Venous stasis both legs. Has several scattered diabetic ulcers on the extremities. L medial ankle/,L3rd distal toe, developing blister to lateral 4th toe, small blood bulla to distal 5th toe and lateral ankle wound None are draining or seem to be actively infected. Has erythema to both lower extremities but resolves when she is supine. Neuro- alert, oriented x 3; PERRL, EOMI; no facial palsy; no dysarthria; Skin- warm & dry Results & Data Results & Data Vital Signs (Past 12 Hours) Vital Signs Temp Pulse Pulse Resp BP Pulse Ox O2 Del Method 06/06/25 09:08 36.7 C 60 16 152/99 H 97 Room Air 06/06/25 08:00 58 L 06/06/25 07:16 36.8 C 55 L 19 126/63 96 Room Air 06/06/25 02:51 36.7 C 61 18 115/62 96 Room Air Diagnostic Findings Laboratory Results WBC 6.00 K/ul (4.8-10.8) 06/06/25 05:35 RBC 2.32 M/uL (4.20-5.40) L 06/06/25 05:35 Hgb 8.2 g/dl (12.0-16.0) L 06/06/25 05:35 Hct 25.7 % (37.0-47.0) L 06/06/25 05:35 MCV 110.8 fL (80.0-100.0) H 06/06/25 05:35 MCH 35.3 pg (25.0-34.0) H 06/06/25 05:35 MCHC 31.9 g/dL (32.0-36.0) L 06/06/25 05:35 RDW Std Deviation 66.7 fL (36.4-46.3) H 06/06/25 05:35 RDW Coeff of Lynda 16.4 % (11.5-14.5) H 06/06/25 05:35 Plt Count 200 K/uL (130-400) 06/06/25 05:35 MPV 10.9 fL (9.4-12.4) 06/06/25 05:35 Reticulocyte % (Auto) 2.87 % (0.50-2.00) H 05/27/25 07:33 Reticulocyte # 0.060 10^6/uL (0.020-0.100) 05/27/25 07:33 Neutrophils % (Manual) 4 % 05/31/25 06:24 Lymphocytes % (Manual) 52 % 05/31/25 06:24 Monocytes % (Manual) 6 % 05/31/25 06:24 Eosinophils % (Manual) 2 % 05/31/25 06:24 Basophils % (Manual) 1 % 05/31/25 06:24 Neutrophils # (Manual) 0.24 K/uL (1.40-6.50) L 05/31/25 06:24 Total Absolute Neuts 0.24 K/uL (1.4-6.5) L* 05/31/25 06:24 Lymphocytes # (Manual) 3.07 K/uL (1.2-3.4) 05/31/25 06:24 Total Abs Lymphocytes 5.14 K/uL (1.2-3.4) H 05/31/25 06:24 Monocytes # (Manual) 0.35 K/uL (0.11-0.59) 05/31/25 06:24 Eosinophils # (Manual) 0.12 K/uL (0-0.50) 05/31/25 06:24 Basophils # (Manual) 0.06 K/uL (0-0.2) 05/31/25 06:24 Large Granular Lymphs 35 % 05/31/25 06:24 # Lrg Granular Lymphs 2.07 K/uL 05/31/25 06:24 Smudge Cells Present 05/27/25 07:33 RBC Morphology Unremarkable 05/26/25 14:32 Polychromasia 1+ 05/31/25 06:24 Peripher Smr Path Cons 05/26/25 14:32 Haptoglobin 58 mg/dL (43-212) 05/27/25 07:33 Sodium 139 mmol/L (136-145) 06/06/25 05:35 Potassium 4.0 mmol/L (3.5-5.1) 06/06/25 05:35 Chloride 110 mmol/L (98-107) H 06/06/25 05:35 Carbon Dioxide 25 mmol/L (21-32) 06/06/25 05:35 Anion Gap 4 (3-11) 06/06/25 05:35 BUN 23 mg/dl (6-23) 06/06/25 05:35 Creatinine 0.78 mg/dl (0.6-1.2) 06/06/25 05:35 Est Cr Clr Drug Dosing 52.2 ml/min 06/06/25 05:35 eGFR 74.85 06/06/25 05:35 BUN/Creatinine Ratio 29.5 (10-20) H 06/06/25 05:35 Glucose 155 mg/dl (70-99(Fasting)) H 06/06/25 05:35 POC Glucose 152 mg/dl (70-99) H 06/06/25 07:15 Estimat Average Glucose 186 mg/dl 05/27/25 07:33 Hemoglobin A1c 8.1 % (4.5-5.6) H 05/27/25 07:33 Lactate 1.5 mmol/L (0.4-2.0) 05/26/25 14:32 Calcium 9.2 mg/dl (8.6-10.3) 06/06/25 05:35 Ionized Calcium 1.44 mmol/L (1.12-1.32) H 05/26/25 16:35 Phosphorus 3.6 mg/dl (2.5-4.9) 06/05/25 06:20 Magnesium 1.7 mg/dl (1.7-2.4) 06/05/25 06:20 Iron 98 mcg/dl (35-150) 05/26/25 14:32 TIBC 336 mcg/dl (250-450) 05/26/25 14:32 Transferrin 240 mg/dl (200-360) 05/26/25 14:32 Transferrin % Sat 29 % (15-50) 05/26/25 14:32 Ferritin 48.6 ng/ml (8-388) 05/26/25 14:32 Total Bilirubin 0.4 mg/dl (0.2-1.0) 05/27/25 07:33 AST 13 U/L (13-39) 05/27/25 07:33 ALT 13 U/L (7-52) 05/27/25 07:33 Alkaline Phosphatase 58 U/L (34-104) 05/27/25 07:33 Lactate Dehydrogenase 129 U/L (86-244) 05/27/25 07:33 C-Reactive Protein < 0.50 mg/dl (0-0.5) 05/26/25 14:32 Total Protein 5.7 gm/dl (6.0-8.3) L 05/27/25 07:33 Albumin 3.5 gm/dl (3.4-5.0) 05/27/25 07:33 Globulin 2.2 gm/dl (2.5-4.0) L 05/27/25 07:33 Albumin/Globulin Ratio 1.6 (0.9-2) 05/27/25 07:33 Vitamin B12 533 pg/ml (180-914) 05/26/25 14:32 Folate > 22.30 ng/ml (>5.38) 05/26/25 14:32 Procalcitonin 0.02 ng/ml (0-0.5) 05/26/25 14:32 TSH 4.312 uIu/ml (0.300-4.500) 05/27/25 07:33 Free T4 1.16 ng/dl (0.61-1.60) 05/27/25 07:33 Nasal Screen MRSA (PCR) Negative (Negative) 05/26/25 Unknown Blood Type O Positive 06/05/25 14:03 Blood Type Recheck O Positive 06/06/25 05:35 Antibody Screen NEGATIVE 06/05/25 14:03 Crossmatch See Detail 06/05/25 14:03 Impressions Foot X-Ray 05/26/25 14:29 Study: Left ankle and left foot 3 views History: Pain Comparison: None Findings: There is no acute fracture or dislocation. Alignment is anatomic. Joint spaces are well maintained. Swelling and mild soft tissue irregularity about the medial aspect of the ankle compatible with known ulcer. Bone mineralization is decreased. Impression: No acute bony abnormality Electronically signed by Ilia Ortega 05-26-2025 4:35 PM Ankle X-Ray 05/26/25 14:34 Study: Left ankle and left foot 3 views History: Pain Comparison: None Findings: There is no acute fracture or dislocation. Alignment is anatomic. Joint spaces are well maintained. Swelling and mild soft tissue irregularity about the medial aspect of the ankle compatible with known ulcer. Bone mineralization is decreased. Impression: No acute bony abnormality Electronically signed by Ilia Ortega 05-26-2025 4:35 PM Duplex Scan Lower Extremity Artery 05/26/25 16:50 EXAM: US arterial duplex LE BI CLINICAL HISTORY: foot wounds, erythema. TECHNIQUE: Ultrasound examination of the bilateral lower extremities arteries with ankle brachial indices was performed in real time and duplex. One or more of the following were performed- spectral analysis, waveform analysis, and pulsed Doppler. COMPARISON: None. FINDINGS: Vessel Flow Pattern Right Peak Velocity Right (cm/sec) Flow Pattern Left Peak Velocity Left (cm/sec) Common Femoral Artery (FURNITURE REPRODUCER) Biphasic 140 Biphasic 80.2 Deep Femoral Artery (DPA) Biphasic 65.8 Biphasic 41.2 Superficial Femoral Artery (SFA) Biphasic Proximal:97.1 Mid: 78.6 Distal: 102.4 Biphasic Proximal:64 Mid: 47.2 Distal: 52.7 Popliteal Artery (POP A) Biphasic Proximal:180 Distal: 226.3 Monophasic 39.3 Anterior Tibial Artery (AUTISM MOTOR SPECIALIST) Biphasic Proximal:61 Mid: 45.2 Distal: 54.9 Monophasic Proximal:27 Mid: 68.8 Distal: 27.1 Posterior Tibial Artery (AUTISM MOTOR SPECIALIST) Biphasic Proximal:60.5 Mid: 54.3 Distal: 76 Monophasic Proximal:64.2 Mid: 28.5 Distal: 25.1 Peroneal Artery Monophasic Proximal:55.2 Mid: 41.8 Distal: 51.5 Monophasic Mid: 15.6 Distal: 16.7 Dorsalis Pedis Artery (DPA) Monophasic 21 Monophasic 42.7 Ankle brachial indiex on left side measuring 0.73. TBI measures 0.61 on right and 0.71 on left side. Diffuse atherosclerosis changes with increased intima/media thickness and wall calcifications involving both lower limb arteries. Biphasic waveform pattern observed throughout both common ,superficial , deep femoral , right popliteal , right anterior and posterior tibial arteries. Monophasic waveform pattern observed throughout, left popliteal , left anterior ,posterior tibial , both peroneal and both dorsalis pedis arteries. Mild stenosis at right popliteal artery with high PSV reaching 80 and 226.3cm/sec at its proximal and distal parts respectively. The peak systolic velocities of other arteries are within normal limit bilaterally. Collateral Circulation: No significant collateral circulation . IMPRESSION: 1. Diffuse atherosclerosis changes of both lower limb arteries, more evident at popliteal and infrapopliteal arteries associated with bilateral mild chronic ischemia more on the right side. 2. Mild stenosis at right politeal artery. 3. Low TBI on right side and low SETH on left side 4. Clinical correlation and further evaluation with CT Angiography are advised. Electronically signed by Juan Merchant 05-27-2025 12:50 PM Aorta Iliac Ultrasound 05/31/25 10:07 ULTRASOUND OF THE ABDOMINAL AORTA CLINICAL HISTORY: Atherosclerotic vascular disease. Peripheral arterial disease. Foot ulcers. COMPARISON STUDY: Abdominal CT dated 05/07/2024. TECHNIQUE: Multiple mack scale, color Doppler, and spectral Doppler sonograms of the abdominal aorta and iliac arteries are performed. Images are reviewed in the transverse and longitudinal planes. FINDINGS: There is moderate to advanced atherosclerotic calcification and irregularity noted throughout the abdominal aorta. The proximal abdominal aorta measures 1.9 x 1.9 cm (AP x transverse), the mid abdominal aorta measures 1.5 x 1.5 cm, and the distal abdominal aorta measures 1.5 x 1.4 cm. The right common iliac artery measures up to 1.0 cm and the left common iliac artery measures up to 0.8 cm. Normal flow and spectral Doppler waveforms are seen within the aorta. Velocities within the abdominal aorta measure up to 112 cm/s. IMPRESSION: 1. Atherosclerotic plaque with no sonographic evidence of abdominal aortic aneurysm. 2. The abdominal aorta and iliac arteries are patent. ACT 112: Negative or not required by law. Electronically signed by: Erick Stratton M.D. 05/31/2025 11:57 AM Extremity Venous Study 06/04/25 08:57 EXAM: US venous mapping LE BI CLINICAL HISTORY: preop for lower extemity bypass TECHNIQUE: Real-time grayscale and Doppler ultrasound examination of the bilateral lower extremity superficial venous systems was performed to evaluate vein caliber and suitability for potential bypass conduit. Measurements were obtained at multiple standard levels. COMPARISON: None FINDINGS: RIGHT LOWER EXTREMITY (Great Saphenous Vein - GSV): Groin level: 3.8 mm diameter; length 14.0 cm Proximal thigh: 2.5 mm diameter; length 13.4 cm Mid-thigh: 2.9 mm diameter; length 12.2 cm Distal thigh: 1.8 mm diameter; length 14.4 cm Knee (medial): 2.9 mm diameter; length 8.7 cm Proximal calf: 2.0 mm diameter; length 6.5 cm Mid-calf: 1.5 mm diameter; length 6.4 cm Distal calf: Not visualized Ankle level: Not visualized RIGHT LOWER EXTREMITY (Lesser Saphenous Vein - LSV): Behind knee: 3.0 mm diameter; length 4.1 cm Proximal calf: 3.2 mm diameter; length 1.8 cm Mid-calf: 2.8 mm diameter; length 1.7 cm Distal calf: 2.2 mm diameter; length 3.0 cm Ankle level: Not visualized LEFT LOWER EXTREMITY (Great Saphenous Vein - GSV): Groin level: 4.9 mm diameter; length 12.3 cm Proximal thigh: 3.2 mm diameter; length 10.8 cm Mid-thigh: 3.8 mm diameter; length 13.0 cm Distal thigh: 4.1 mm diameter; length 14.9 cm Knee: 3.5 mm diameter; length 10.0 cm Proximal calf: 2.3 mm diameter; length 7.1 cm Mid-calf: 2.0 mm diameter; length 8.7 cm Distal calf: 2.0 mm diameter; length 8.9 cm Ankle level: 3.4 mm diameter; length 7.1 cm LEFT LOWER EXTREMITY (Lesser Saphenous Vein - LSV): Behind knee: 3.8 mm diameter; length 6.9 cm Proximal calf: 3.6 mm diameter; length 7.8 cm Mid-calf: Not visualized Distal calf: Not visualized Ankle level: Not visualized IMPRESSION: 1. Right Great Saphenous Vein (GSV): Segmental caliber ranges from 1.5 mm to 3.8 mm with proximal thigh segments measuring 2.5 mm, potentially suitable for conduit in selected segments. 2. Caliber below the mid-thigh is borderline to suboptimal, particularly distally. 3. Right Lesser Saphenous Vein (LSV): Segmental diameters range from 2.2 mm to 3.2 mm. Visualization is limited distally. 4. Left Great Saphenous Vein (GSV): Segmental caliber ranges from 2.0 mm to 4.9 mm. Overall caliber and continuity suggest suitability for conduit, particularly from groin through knee levels. 5. Left Lesser Saphenous Vein (LSV): Segmental diameters range from 3.6 mm to 3.8 mm proximally. Visualization limited distally. RECOMMENDATION: The left great saphenous vein (GSV) demonstrates the most favorable caliber and continuity for potential bypass conduit use. The right GSV may be considered in proximal segments; however, distal segments show borderline to suboptimal caliber. Lesser saphenous veins bilaterally may serve as secondary options in limited segments. Electronically signed by Juan Merchant 06-04-2025 5:13 PM Chest X-Ray 06/04/25 13:56 XR chest 2V PA/lateral CLINICAL HISTORY: preop eval COMPARISON STUDY: None FINDINGS: Heart size and pulmonary vasculature are normal. No consolidation or pleural effusion. There are mild thoracic spine degenerative changes. IMPRESSION: No acute findings. ACT 112: Negative or not required by law. Electronically signed by: Vicente Schafer M.D. 06/04/2025 2:58 PM
[2025-06-06] MEDS ORDERED: ePHEDrine sulfate 50 MG/5 ML SYR ONE (12:54)
[2025-06-06] MEDS: HEPARIN (PORCINE) 1000 UNIT/ML 10 ML (CATH LAB USE ONLY) ONE (14:57)
[2025-06-06] MEDS: GELATIN SPONGE SZ 100 ONE (14:57)
[2025-06-06] MEDS: THROMBIN FOR SOLN 20000 UNIT KIT ONE (14:57)
[2025-06-06] MEDS: ceFAZolin 330 MG/ML 1 GM VIAL ONE (14:57)
[2025-06-06] MEDS ORDERED: SUGAMMADEX SODIUM 200 MG/2 ML VIAL IV ONE (15:25)
[2025-06-06] MEDS: VISIPAQUE IV ONE (15:54)
--- NOTE | 2025-06-06 16:37 | Post Operative Brief Note ---
Immediate Post Op Note Date of Surgery June 06, 2025 Pre & Post Diagnosis Operation Date: 06/06/25 09:40 Pre-Op Diagnosis: Peripheral vascular disease of lower extremity with ulceration Post-Op Diagnosis: Peripheral vascular disease of lower extremity with ulceration I identified the patient and participated in the time-out.: Yes Procedure Operation Date: 06/06/25 09:40 Actual Procedures p Left Femoral Tibial Bypass(Left) - Akira Perdomo MD Surgeon Akira Perdomo MD Furniture Salesperson [facility]; [facility] Estimated Blood Loss 150 Findings Consistent with Post-Op Diagnosis Fluids 1400cc crystalloid, 500cc Albumin Urine output 300cc Anesthesia Type General Complications none Disposition Accompanied Patient To Recovery: Yes Disposition: Recovery Room
--- NOTE | 2025-06-06 17:27 | Anesthesiology Progress Note ---
Date of Service June 06, 2025 Anesthesia Post Procedure Vital Signs Vital Signs: Temp Pulse Pulse Pulse Resp BP BP 06/06/25 17:20 36.5 C 77 15 135/39 L 06/06/25 17:10 77 20 133/39 L 06/06/25 17:00 82 16 146/45 H 06/06/25 16:50 36.2 C L 80 19 06/06/25 09:08 36.7 C 60 16 152/99 H 06/06/25 08:00 58 L 06/06/25 07:16 36.8 C 55 L 19 126/63 06/06/25 02:51 36.7 C 61 18 115/62 06/05/25 22:39 36.8 C 63 20 130/60 06/05/25 19:29 36.7 C 72 18 153/57 H 06/05/25 18:00 BP Pulse Ox O2 Del Method O2 Del Method O2 Flow Rate 06/06/25 17:20 128/51 L 100 Nasal Cannula 2 06/06/25 17:10 137/46 L 100 Oxymask 5 06/06/25 17:00 140/65 100 Oxymask 10 06/06/25 16:50 140/54 L 100 Oxymask 10 06/06/25 09:08 97 Room Air 06/06/25 08:00 06/06/25 07:16 96 Room Air 06/06/25 02:51 96 Room Air 06/05/25 22:39 96 Room Air 06/05/25 19:29 97 Room Air 06/05/25 18:00 Room Air Pain Intensity Left Ankle: Pain Intensity: 4 Transfer of Care Handoff Completed per policy Notes Mental Status: alert / awake / arousable Patient Amnestic to Procedure: Yes Nausea / Vomiting: adequately controlled Pain: adequately controlled Airway Patency, RR, SpO2: stable & adequate BP & HR: stable & adequate Hydration State: stable & adequate Anesthetic Complications: no major complications apparent
--- NOTE | 2025-06-06 17:49 | Operative Report ---
PG Post Operative Report Pre & Post Diagnosis Operation Date: 06/06/25 09:40 Pre-Op Diagnosis: Peripheral vascular disease of lower extremity with ulceration Post-Op Diagnosis: Peripheral vascular disease of lower extremity with ulceration I identified the patient and participated in the time-out.: Yes Procedure Operation Date: 06/06/25 09:40 Actual Procedures p Left Femoral Tibial Bypass(Left) - Akira Perdomo MD Surgeon Akira Perdomo MD Slate Roofer Helper [facility]; [facility] Estimated Blood Loss 150 Findings Consistent with Post-Op Diagnosis Fluids 1400cc crystalloid 500cc albumin Specimens none Anesthesia Type General Complications none Disposition Accompanied Patient To Recovery: Yes Disposition: Recovery Room Indications Ischemic foot with ulceration. Angiogram shows complex disease better suited for bypass. Description of Procedure A timeout was performed and the patient was identified in procedure. General endotracheal anesthesia was induced without incident and appropriate monitoring devices were placed. Entire left lower extremity as well as the right groin were prepped and draped in usual sterile fashion. The foot was placed in an impervious stockinette. Incision was made over the distal thigh. The distal superficial femoral artery was identified and was soft with a good pulse and suitable for use. The saphenous vein was identified through this incision and traced along the course of the incision. A separate incision was then made below the knee. The saphenous vein was identified here and preserved. The small branches off of the posterior tibial vein were then taken down and the posterior tibial artery was identified and was heavily calcified throughout. This was traced back to the tibioperoneal trunk which was also heavily calcified and not suitable for use. We then identified the origin of the peroneal artery which was soft and suitable for use. The saphenous vein was then harvested leaving a skin bridge between these 2 incisions. It was distended and sidebranches were ligated with 4-0 silk ties. It was suitable for use. It was not reversed. The patient systemically anticoagulated with heparin to achieve a therapeutic activated clotting time. Additional heparin boluses were given as needed. The distal superficial femoral artery was clamped and arteriotomy created. The lumen was suitable. The vein was spatulated fashion to fit and sewn end to side using running 5-0 Prolene. The anastomosis was completed tested secured and hemostatic. Air debris were flushed into and out of the vein graft. A LeMaitre disposable valvulotome was then used to lyse the valves within the vein and excellent pulsatile flow was noted. It was marked and kept oriented. It was placed back into its original bed in a superficial tunnel and then brought down to the peroneal artery with a good lie. A padded orthopedic tourniquet was then placed on the distal thigh. Vein graft was placed and padded. An Esmarch tourniquet was used to exsanguinate the leg embolectomy orthopedic tourniquet was inflated to 300 mmHg. The peroneal artery was incised and was suitable for use. The vein was trimmed and spatulated fashion to fit and sewn end-to-side onto the peroneal artery using running 7-0 Prolene. Prior to completion the tourniquet was deflated and there debris were flushed out the anastomotic line. Hemostasis was quite good. Total tourniquet time was 31 minutes. Doppler flow throughout the vein graft as well as in the distal outflow artery was excellent. There was a triphasic peroneal artery signal as well as a triphasic posterior tibial artery signal in the foot. The graft was punctured with a 20-gauge Angiocath and a completion angiogram was performed showing suitable proximal and distal anastomoses and no evidence of retained vein balance. Outflow at the peroneal artery as well as retrograde into the posterior tibial artery was noted. The puncture site was repaired with Prolene. The wounds were inspected and made hemostatic. They were closed in layers with interrupted 2-0 Vicryl and then running Monocryl. Dermabond was applied. Patient was awakened extubated and taken to recovery in stable condition and tolerated the procedure well without immediate complication. I attest to the content of the Intraoperative Record and any orders documented therein. Any exceptions are noted below.
--- NOTE | 2025-06-06 18:46 | Critical Care Consultation ---
Date of Consultation June 06, 2025 Assessment & Plan (1) Peripheral vascular disease of lower extremity with ulceration: (2) Anemia: (3) Cellulitis of left lower extremity: (4) Neutropenia: (5) Primary hyperparathyroidism: (6) T2DM (type 2 diabetes mellitus): (7) HLD (hyperlipidemia): (8) HTN (hypertension): Plan 84-year-old female was admitted to the hospital for a left lower extremity cellulitis. Underwent left femoral-tibial bypass. Sent to ICU for further care Past medical history: Diabetes type 2, peripheral vascular disease, hypothyroidism, hyperparathyroidism primary, mitral valve stenosis -- Peripheral vascular disease S/p left-sided femoral-tibial bypass by Dr. Perdomo on 06/06/2025 Monitor for signs of bleeding Monitor blood pressure Monitor pulses -- Left lower extremity cellulitis Likely secondary to diabetes as well as peripheral vascular disease On antibiotics -- Diabetes type 2 Continue with ICU hypoglycemia protocol -- History of hypertension On atenolol as well as enalapril Hydrochlorothiazide has been on hold secondary to hypercalcemia --History of hypercalcemia From primary hyperparathyroidism S/p superior parathyroidectomy in 2007 -- Chronic diarrhea History of right-sided hemicolectomy --Prophylaxis VTE: None GI: None Lines: Left radial Diet: Cardiac diabetic Plan: Strict ins and outs Continue with Doppler monitoring for lower extremities Monitor for signs of bleeding Pain management Continue with antibiotics I have personally spent 32 minutes of critical care time in the direct management of this patient. This is a life/limb threatening event. This includes time spent evaluating patient, direct bedside care, chart review, placing orders, interpretation of diagnostic studies, discussion with consultants, patient, and family members, as well as other required patient management activities. This time is exclusive of all separately billable procedures, and teaching time and separate from and in addition to any other critical care service time. Please note the above document was generated using voice recognition software. It may contain grammatical, syntax or spelling errors. History of Present Illness Attending Physician: Lacho Trejo DO History of Present Illness 84-year-old female was admitted to the hospital for a left lower extremity cellulitis. Underwent left femoral-tibial bypass. Sent to ICU for further care Past medical history: Diabetes type 2, peripheral vascular disease, hypothyroidism, hyperparathyroidism primary, mitral valve stenosis Signout was given by Dr. Perdomo At the time of examination in the ICU, patient's was in the room Her systolic blood pressure was over 160s with MAP in the high 70s or reading through the arterial line Saturation was 98-99% on 2 L nasal cannula, I put her on room air She was not in any distress. Better denied any abdominal pain No nausea or vomiting No headache, no blurry vision Denied any abdominal pain No leg pain. Social history: Lifetime non-smoker, no alcohol, denies any illicit drug use. Allergies Allergy/AdvReac Type Severity Reaction Status Date / Time No Known Allergies Allergy Unknown Verified 05/26/25 16:00 Home Medications Medication Instructions Recorded Confirmed Type aspirin 81 mg tablet,delayed 81 mg PO DAILY 05/26/25 05/26/25 History release atenolol 100 mg tablet 100 mg PO DAILY 05/26/25 05/26/25 History atorvastatin 40 mg tablet 40 mg PO HS 05/26/25 05/26/25 History benazepril 40 mg tablet 40 mg PO DAILY 05/26/25 05/26/25 History cholestyramine (with sugar) 4 gram 1 ea PO BID 05/26/25 05/26/25 History powder for susp in a packet glimepiride 4 mg tablet 4 mg PO DAILYBB 05/26/25 05/26/25 History hydrochlorothiazide 25 mg tablet 25 mg PO DAILY 05/26/25 05/26/25 History levothyroxine 75 mcg tablet 75 mcg PO DAILYBB 05/26/25 05/26/25 History metformin 500 mg tablet,extended 1,000 mg PO BID 05/26/25 05/26/25 History release 24 hr multivitamin 1 tab PO DAILY 05/26/25 05/26/25 History vit C 250 mg-vit E 90 mg-zinc 40 1 tab PO BID 05/26/25 05/26/25 History mg-copper 1 [id number] capsule (PreserVision AREDS-2) Patient History Medical History Hypothyroidism Diabetic retinopathy Primary hyperparathyroidism T2DM (type 2 diabetes mellitus) HLD (hyperlipidemia) HTN (hypertension) Surgical History Hx of tonsillectomy Hx of appendectomy Hx of parathyroidectomy R superior History of partial colectomy R hemicolectomy with ileocolic anastomosis Hx of endoscopic retrograde cholangiopancreatography Hx of cataract extraction Hx of cholecystectomy 04/2024 lap converted to open 2/2 serosal tear of stomach Family History Mother Colorectal cancer Diabetes Father Colorectal cancer Sister Cancer lymphoma Sister Myocardial infarction Sister Rheumatoid arthritis Social History Smoking Status: Former smoker Tobacco Type: Cigarettes Second Hand Exposure: No; Do You Dip or Chew Tobacco: No; Tobacco Cessation Education Requested by Patient: No Hx Alcohol Use: No Hx Substance Use: No Preferred Language: Vietnamese Communication Ability: Effective Secondary Education Professor Required: No Beliefs That Will Affect Care: None Current Living Situation: Spouse Current Living Situation Comment: lives at home with Other Information That Helps Us Care for You: No Feels Safe at Home: Yes Safety Concerns: Feels Safe At This Time Assistive Devices: Cane and Glasses Assistive Devices Comment: cane/glasses Review of Systems 2 Review of Systems: All systems reviewed & are unremarkable except as noted in HPI & below Physical Exam 2 Physical Exam: Constitutional: No acute distress HEENT: EOMI, PERRLA Respiratory system: Good air entry bilaterally, no wheeze, rhonchi, no crackles CVS: S1-S2 positive, positive 3 out of 6 systolic murmur appreciated best at left parasternal border Abdomen: Soft, nontender, nondistended, positive bowel sounds x4 Extremities: + 1 pulses bilaterally radialis/ dorsalis pedis, no cyanosis, minimal edema bilateral lower extremity, abdominal bruising appreciated at the left lower quadrant as well as suprapubic region Neuro: Awake alert oriented x3 Psych: Normal mood and affect G/U: Positive Padron Skin: no rashes, warm and dry Lymphatic: no cervical or axillary lymphadenopathy Results & Data Results & Data Vital Signs (Past 12 Hours) Vital Signs Temp Pulse Pulse Pulse Resp BP BP 06/06/25 17:30 75 16 137/40 L 06/06/25 17:20 36.5 C 77 15 135/39 L 06/06/25 17:10 77 20 133/39 L 06/06/25 17:00 82 16 146/45 H 06/06/25 16:50 36.2 C L 80 19 06/06/25 09:08 36.7 C 60 16 152/99 H 06/06/25 08:00 58 L 06/06/25 07:16 36.8 C 55 L 19 126/63 BP Pulse Ox O2 Del Method O2 Flow Rate 06/06/25 17:30 134/54 L 98 Nasal Cannula 2 06/06/25 17:20 128/51 L 100 Nasal Cannula 2 06/06/25 17:10 137/46 L 100 Oxymask 5 06/06/25 17:00 140/65 100 Oxymask 10 06/06/25 16:50 140/54 L 100 Oxymask 10 06/06/25 09:08 97 Room Air 06/06/25 08:00 06/06/25 07:16 96 Room Air Laboratory Results 06/06/25 05:35 06/06/25 05:35 Coding Level of Care Code 29229 CRITICAL CARE 1ST 30-74M Diagnoses Peripheral vascular disease of lower extremity with ulceration I73.9; L97.909 Anemia D64.9 Cellulitis of left lower extremity L03.116 Neutropenia D70.9 Primary hyperparathyroidism E21.0 T2DM (type 2 diabetes mellitus) E11.9 HLD (hyperlipidemia) E78.5 HTN (hypertension) I10
[2025-06-06 19:26] LABS: Hematocrit (blood only) 23.2 % (37.0-47.0); Hemoglobin 7.5 g/dl (12.0-16.0); Immature Granulocytes # (auto) 0.02 K/uL (0.01-0.20); Immature Granulocytes % (auto) 0.2 %; Mean Corpuscular Hemoglobin 36.4 pg (25.0-34.0); Mean Corpuscular Volume 112.6 fL (80.0-100.0); Platelet Count 187 K/uL (130-400); RDW Standard Deviation 70.2 fL (36.4-46.3); Red Blood Count 2.06 M/uL (4.20-5.40); White Blood Count 9.85 K/ul (4.8-10.8)
[2025-06-06 19:43] LABS: Anion Gap 7.0 (3-11); Blood Urea Nitrogen 17.0 mg/dl (6-23); Calcium 9.1 mg/dl (8.6-10.3); Carbon Dioxide 23.0 mmol/L (21-32); Chloride 109.0 mmol/L (98-107); Creatinine Clr Calc Pharmacy 56.6 ml/min; Glucose 237.0 mg/dl (70-99(Fasting)); Potassium 4.2 mmol/L (3.5-5.1); Sodium 139.0 mmol/L (136-145)
[2025-06-06 19:48] LABS: Macrocytosis Present
[2025-06-06] MEDS: CHOLESTYRAMINE LIGHT 4 GM PKT PO SCH (22:35)
[2025-06-07] MEDS ORDERED: STAT IV Infusion **Titration per Protocol STA (00:25)
[2025-06-07] MEDS: PHENYLEPHRINE/NSS 25 MG/250 ML BAG IV SCH (00:54)
[2025-06-07 04:57] LABS: Hematocrit (blood only) 19.5 % (37.0-47.0); Hemoglobin 6.4 g/dl (12.0-16.0); Mean Corpuscular Hemoglobin 36.4 pg (25.0-34.0); Mean Corpuscular Volume 110.8 fL (80.0-100.0); Platelet Count 195 K/uL (130-400); RDW Standard Deviation 67.9 fL (36.4-46.3); Red Blood Count 1.76 M/uL (4.20-5.40); White Blood Count 7.95 K/ul (4.8-10.8)
[2025-06-07] MEDS ORDERED: SODIUM CHLORIDE 0.9% 100 ML IV PRN (05:00)
[2025-06-07 05:17] LABS: Anion Gap 4.0 (3-11); Blood Urea Nitrogen 17.0 mg/dl (6-23); Calcium 8.8 mg/dl (8.6-10.3); Carbon Dioxide 25.0 mmol/L (21-32); Chloride 109.0 mmol/L (98-107); Creatinine Clr Calc Pharmacy 60.8 ml/min; Glucose 195.0 mg/dl (70-99(Fasting)); Magnesium 1.7 mg/dl (1.7-2.4); Potassium 4.1 mmol/L (3.5-5.1); Sodium 138.0 mmol/L (136-145)
[2025-06-07 05:29] LABS: Macrocytosis Present; Polychromasia 2+
[2025-06-07] MEDS ORDERED: GLIMEPIRIDE 2 MG TAB PO SCH (06:30)
--- NOTE | 2025-06-07 07:20 | Critical Care Progress Note ---
Date of Service June 07, 2025 Assessment & Plan (1) Peripheral vascular disease of lower extremity with ulceration: (2) Anemia: (3) Cellulitis of left lower extremity: (4) Neutropenia: (5) Primary hyperparathyroidism: (6) T2DM (type 2 diabetes mellitus): (7) HLD (hyperlipidemia): (8) HTN (hypertension): (9) Acute blood loss anemia: Plan 84-year-old female was admitted to the hospital for a left lower extremity cellulitis. Underwent left femoral-tibial bypass. Sent to ICU for further care Past medical history: Diabetes type 2, peripheral vascular disease, hypothyroidism, hyperparathyroidism primary, mitral valve stenosis -- Peripheral vascular disease S/p left-sided femoral-tibial bypass by Dr. Perdomo on 06/06/2025 Monitor for signs of bleeding Monitor blood pressure Monitor pulses -- Acute blood loss anemia Likely postsurgical Got 1 unit of PRBC 06/07/2025 Continue to monitor H&H -- Left lower extremity cellulitis Likely secondary to diabetes as well as peripheral vascular disease Finish total 7 days of doxycycline WBC count within normal, no indication for antibiotics right now -- Diabetes type 2 Continue with ICU hypoglycemia protocol -- History of hypertension On atenolol as well as enalapril Hydrochlorothiazide has been on hold secondary to hypercalcemia --History of hypercalcemia From primary hyperparathyroidism S/p superior parathyroidectomy in 2007 -- Chronic diarrhea History of right-sided hemicolectomy --Prophylaxis VTE: None GI: None Lines: Left radial Diet: Cardiac diabetic Plan: Drop in hemoglobin, likely postsurgical, will get 1 unit of PRBC Repeat H&H later today Hold blood pressure medication for the time being given the blood pressure is on the softer side. If the pressure starts to go up then may be resumed the blood pressure medication at the lower dose Magnesium being replaced If the blood pressure is stable later today along with hemoglobin then okay to transfer the patient out of the ICU Case discussed with primary team as well as vascular surgery Please note the above document was generated using voice recognition software. It may contain grammatical, syntax or spelling errors.Any formal questions or concerns about the content, text or information contained within the body of this dictation should be directly addressed to the provider for clarification. Admission and Anticipated Discharge Date Admission Date: May 26, 2025 Subjective Patient seen and examined at bedside. No acute distress. Overnight patient briefly needed phenylephrine as the blood pressure was trending low She was saturating 94% on room air at the time of examination Systolic blood pressure was in the high 110s Denied any nausea vomiting No headache Complain of mild soreness in the throat most likely from intubation No difficulty swallowing Afebrile Review of Systems 2 Review of Systems: All systems reviewed & are unremarkable except as noted in Subjective Physical Exam 2 Physical Exam: Constitutional: No acute distress HEENT: EOMI, PERRLA Respiratory system: Good air entry bilaterally, no wheeze, rhonchi, minimal crackles bilateral lower lobes which went away on subsequent breaths CVS: S1-S2 positive, positive 3 out of 6 systolic murmur appreciated best at left parasternal border Abdomen: Soft, nontender, nondistended, positive bowel sounds x4 Extremities: + 1 pulses bilaterally radialis/ dorsalis pedis, no cyanosis, minimal edema bilateral lower extremity, abdominal bruising appreciated at the left lower quadrant as well as suprapubic region Neuro: Awake alert oriented x3 Psych: Normal mood and affect G/U: Positive Padron Skin: no rashes, warm and dry Lymphatic: no cervical or axillary lymphadenopathy Results & Data Results & Data Vital Signs (Past 12 Hours) Vital Signs Temp Pulse Resp BP Pulse Ox O2 Del Method O2 Flow Rate 06/07/25 06:45 36.8 C 70 16 126/34 L 100 2 06/07/25 06:30 68 15 100 06/07/25 06:18 70 15 100 06/07/25 06:15 36.8 C 70 16 128/33 L 100 2 06/07/25 06:00 72 10 L 100 06/07/25 06:00 117/50 L 06/07/25 06:00 117/50 L 06/07/25 06:00 36.8 C 68 16 125/31 L 100 2 06/07/25 05:54 69 15 100 06/07/25 05:43 36.8 C 70 16 134/33 L 99 2 06/07/25 05:30 76 23 100 06/07/25 05:27 68 14 100 06/07/25 05:00 72 13 100 06/07/25 05:00 110/46 L 06/07/25 04:45 82 21 100 06/07/25 04:30 67 17 100 06/07/25 04:03 71 16 100 06/07/25 04:00 121/47 L 06/07/25 03:57 71 15 100 06/07/25 03:51 72 16 100 06/07/25 03:30 74 15 100 06/07/25 03:24 71 17 100 06/07/25 03:00 108/45 L 06/07/25 02:51 72 17 100 06/07/25 02:30 71 14 100 06/07/25 02:15 71 16 100 06/07/25 01:45 69 17 100 06/07/25 01:30 77 17 100 06/07/25 01:28 36.7 C 06/07/25 01:06 69 14 100 06/07/25 01:00 129/52 L 06/07/25 00:57 71 14 100 06/07/25 00:48 72 14 100 06/07/25 00:30 73 15 100 06/07/25 00:18 72 14 100 06/07/25 00:00 106/43 L 06/07/25 00:00 106/43 L 06/07/25 00:00 106/43 L 06/07/25 00:00 72 16 100 06/06/25 23:48 71 14 100 06/06/25 23:30 74 17 100 06/06/25 23:21 73 16 100 06/06/25 23:00 76 24 100 06/06/25 23:00 111/52 L 06/06/25 22:57 72 14 100 06/06/25 22:33 75 19 100 06/06/25 22:15 76 15 100 06/06/25 22:03 75 15 99 06/06/25 22:00 109/51 L 06/06/25 22:00 109/51 L 06/06/25 21:42 76 17 100 06/06/25 21:30 80 16 100 06/06/25 21:15 73 20 100 06/06/25 21:06 78 18 100 06/06/25 21:00 114/49 L 06/06/25 20:57 73 14 100 06/06/25 20:51 73 14 100 06/06/25 20:30 73 17 100 06/06/25 20:22 36.6 C 06/06/25 20:15 71 15 100 06/06/25 20:00 Nasal Cannula 2 Laboratory Results 06/07/25 04:34 06/07/25 04:34 Coding Level of Care Code 89579 SUB INP/OBS CARE 350MIN Diagnoses Peripheral vascular disease of lower extremity with ulceration I73.9; L97.909 Anemia D64.9 Cellulitis of left lower extremity L03.116 Neutropenia D70.9 Primary hyperparathyroidism E21.0 T2DM (type 2 diabetes mellitus) E11.9 HLD (hyperlipidemia) E78.5 HTN (hypertension) I10 Acute blood loss anemia D62
--- NOTE | 2025-06-07 07:45 | Cardiology Progress Note ---
Date of Service June 07, 2025 Assessment & Plan (1) Preop cardiovascular exam: Plan Patient is an 84-year-old female Preoperative cardiovascular evaluation - planned surgical revascularization left lower extremity. * No prior history of [place]/active ischemia, decompensated CHF or unstable arrhythmias. * Mild aortic stenosis on last echocardiogram with preserved LV systolic function January 2025. * Normal renal function * Dobutmine Stress ECHO - negative for ischemia * LVEF 65%, Aortic Sclerosis * Pt POD #1 S/P Left Fem-Pop Bypass * Pressors OFF * Doppler pulses in left leg * No chest pain * Patient appears euvolemic * Transfusion planned * Please check Post Op EKG * SBP 120's * On Beta blockers + enalapril * K+ goal 4.5-5 * Mag goal >2 * 51 min spent addressing challenges, educating and advancing daily plan of care * Please call back with any additional questions Dank Werneriz Admission and Anticipated Discharge Date Admission Date: May 26, 2025 Subjective Events overnight: None reported Subjective: No complaints of chest pain Review of Systems Review of Systems: All systems reviewed & are unremarkable except as noted in HPI & below Physical Exam Physical Exam: No elevation in JVP S1S2 2/6 Systolic Murmur at base right CTA B on anterior exam + BS Left leg - incisions clean and healing Doppler pulses - Left PT/DP Left leg warm and perfused Results & Data Vital Signs (Past 12 Hours) Vital Signs Temp Pulse Resp BP Pulse Ox O2 Del Method O2 Flow Rate 06/07/25 06:45 36.8 C 70 16 126/34 L 100 2 06/07/25 06:30 68 15 100 06/07/25 06:18 70 15 100 06/07/25 06:15 36.8 C 70 16 128/33 L 100 2 06/07/25 06:00 72 10 L 100 06/07/25 06:00 117/50 L 06/07/25 06:00 117/50 L 06/07/25 06:00 36.8 C 68 16 125/31 L 100 2 06/07/25 05:54 69 15 100 06/07/25 05:43 36.8 C 70 16 134/33 L 99 2 06/07/25 05:30 76 23 100 06/07/25 05:27 68 14 100 06/07/25 05:00 72 13 100 06/07/25 05:00 110/46 L 06/07/25 04:45 82 21 100 06/07/25 04:30 67 17 100 06/07/25 04:03 71 16 100 06/07/25 04:00 121/47 L 06/07/25 03:57 71 15 100 06/07/25 03:51 72 16 100 06/07/25 03:30 74 15 100 06/07/25 03:24 71 17 100 06/07/25 03:00 108/45 L 06/07/25 02:51 72 17 100 06/07/25 02:30 71 14 100 06/07/25 02:15 71 16 100 06/07/25 01:45 69 17 100 06/07/25 01:30 77 17 100 06/07/25 01:28 36.7 C 06/07/25 01:06 69 14 100 06/07/25 01:00 129/52 L 06/07/25 00:57 71 14 100 06/07/25 00:48 72 14 100 06/07/25 00:30 73 15 100 06/07/25 00:18 72 14 100 06/07/25 00:00 106/43 L 06/07/25 00:00 106/43 L 06/07/25 00:00 106/43 L 06/07/25 00:00 72 16 100 06/06/25 23:48 71 14 100 06/06/25 23:30 74 17 100 06/06/25 23:21 73 16 100 06/06/25 23:00 76 24 100 06/06/25 23:00 111/52 L 06/06/25 22:57 72 14 100 06/06/25 22:33 75 19 100 06/06/25 22:15 76 15 100 06/06/25 22:03 75 15 99 06/06/25 22:00 109/51 L 06/06/25 22:00 109/51 L 06/06/25 21:42 76 17 100 06/06/25 21:30 80 16 100 06/06/25 21:15 73 20 100 06/06/25 21:06 78 18 100 06/06/25 21:00 114/49 L 06/06/25 20:57 73 14 100 06/06/25 20:51 73 14 100 06/06/25 20:30 73 17 100 06/06/25 20:22 36.6 C 06/06/25 20:15 71 15 100 06/06/25 20:00 Nasal Cannula 2 Laboratory Results CBC 06/06/25 06/07/25 Range/Units 18:57 04:34 WBC 9.85 7.95 (4.8-10.8) K/ul RBC 2.06 L 1.76 L (4.20-5.40) M/uL Hgb 7.5 L 6.4 L* (12.0-16.0) g/dl Hct 23.2 L 19.5 L* (37.0-47.0) % Plt Count 187 195 (130-400) K/uL Neut # (Auto) 6.94 H 2.70 (1.40-6.50) K/uL Lymph # (Auto) 2.57 4.42 H (1.20-3.40) K/uL [place] # (Auto) 0.28 0.78 H (0.11-0.59) K/uL Eos # (Auto) 0.01 0.01 (0.00-0.50) K/uL Baso # (Auto) 0.03 0.03 (0.00-0.20) K/uL Comprehensive Metabolic Panel 06/06/25 06/07/25 Range/Units 18:57 04:34 Sodium 139 138 (136-145) mmol/L Potassium 4.2 4.1 (3.5-5.1) mmol/L Chloride 109 H 109 H (98-107) mmol/L Carbon Dioxide 23 25 (21-32) mmol/L BUN 17 17 (6-23) mg/dl Creatinine 0.72 0.67 (0.6-1.2) mg/dl Glucose 237 H 195 H (70-99(Fasting)) mg/dl Calcium 9.1 8.8 (8.6-10.3) mg/dl Intake and Output 06/06/25 06/07/25 06/07/25 22:59 06:59 14:59 Intake Total 1700 / 2764.000 64.000 / 2764.000 Output Total 225 / 625 400 / 625 Balance 1475 / 2139.000 -336.000 / 2139.000 Intake: IV 64.000 / 1064.000 Phenylephrine/Nss 25 mg In 250 64.000 / 64.000 ml @ 0.3 MCG/KG/MIN 11.97 mls/ hr IV .[id number] [facility] Rx#:[id number] IV Perioperative 1700 / 1700 Intake (Blood Product) Amt 0 / 0 Packed Cells, Leukoreduced 0 / 0 Unit [id number] Output: Estimated Blood Loss 150 / 150 Urine Amount (Catheter) 75 / 475 400 / 475 Padron/Indwelling 75 / 475 400 / 475 Medications Administered Current Inpatient Medications Acetaminophen (Acetaminophen 325 Mg Tab) 650 mg PO Q4H PRN PRN Reason: Pain or Fever Stop: 06/25/25 18:41 Last Admin: 06/06/25 19:54 Dose: 650 mg Aspirin (Aspirin 81 Mg Ectab) 81 mg PO DAILY [facility] Stop: 06/26/25 08:59 Last Admin: 06/06/25 09:10 Dose: Not Given Atenolol (Atenolol 50 Mg Tablet) 100 mg PO DAILY [facility] Stop: 06/26/25 08:59 Last Admin: 06/06/25 09:10 Dose: Not Given Atorvastatin Calcium (Atorvastatin 40 Mg Tab) 40 mg PO HS [facility] Stop: 06/25/25 20:59 Last Admin: 06/06/25 19:55 Dose: 40 mg Cholestyramine Resin (Cholestyramine Light 4 Gm Pkt) 4 gm PO BID@1000,2200 [facility] Stop: 07/06/25 21:59 Last Admin: 06/06/25 22:42 Dose: Not Given Dextrose (Dextrose 50% 50 Ml Syringe) 25 - 50 ml IV UD PRN; Protocol PRN Reason: Hypoglycemia Protocol Stop: 06/25/25 18:41 Duloxetine HCl (Duloxetine Hcl 20 Mg Cap) 20 mg PO HS [facility] Stop: 06/26/25 19:49 Last Admin: 06/06/25 19:56 Dose: 20 mg Enalapril Maleate (Enalapril Maleate 10 Mg Tab) 10 mg PO DAILY VAL Stop: 06/28/25 08:59 Last Admin: 06/06/25 09:10 Dose: Not Given Enoxaparin Sodium (Enoxaparin Inj 40 Mg/0.4 Ml Syr) 40 mg SQ HS VAL Stop: 06/25/25 20:59 Last Admin: 06/01/25 20:45 Dose: 40 mg Famotidine (Famotidine 20 Mg Tab) 20 mg PO DAILY PRN PRN Reason: Heartburn Stop: 06/25/25 18:41 Glucagon (Glucagon For Inj 1 Mg Vial) 1 mg SQ UD PRN; Protocol PRN Reason: Hypoglycemia Protocol Stop: 06/25/25 18:41 Glucose (Glucose 40% Gel 15 Gm Tube) 15 - 30 gm PO UD PRN; Protocol PRN Reason: Hypoglycemia Protocol Stop: 06/25/25 18:41 Glucose (Glucose 10 Tab/Tube) 4 - 8 tab PO UD PRN; Protocol PRN Reason: Hypoglycemia Protocol Stop: 06/25/25 18:41 Lactated Ringer's (Lr) 1,000 mls @ 15 mls/hr IV .Q24H VAL Stop: 06/09/25 09:44 Last Infusion: 06/06/25 10:50 Dose: Infused Phenylephrine HCl (Phenylephrine/Nss) 25 mg in 250 mls @ 0 mls/hr IV .Q0M VAL; Protocol Stop: 07/07/25 00:24 Last Titration: 06/07/25 05:50 Dose: 0 mcg/kg/min, 0 mls/hr Sodium Chloride (Nss) 100 mls @ 15 mls/hr IV .Q6H40M PRN PRN Reason: For Transfusion Duration Stop: 06/07/25 13:00 Insulin Aspart (Insulin Aspart Per Unit Charge) 0 units SC Q6 VAL Stop: 07/06/25 05:59 Last Admin: 06/07/25 05:57 Dose: 2 units Insulin Glargine (Lantus Per Unit Charge) 0 - 6 units SQ BID VAL Stop: 06/25/25 20:59 Last Admin: 06/06/25 23:40 Dose: 6 units Lactobacillus Acidophilus (Advanced Probiotic 625 Mg Capsule) 1,250 mg PO DAILY VAL Stop: 06/26/25 08:59 Last Admin: 06/06/25 09:10 Dose: Not Given Levothyroxine Sodium (Levothyroxine Sodium 75 Mcg Tablet) 75 mcg PO DAILYBB [facility] Stop: 06/26/25 06:29 Last Admin: 06/07/25 04:41 Dose: 75 mcg Melatonin (Melatonin 3 Mg Tab) 3 mg PO HS PRN PRN Reason: Sleep Stop: 06/25/25 18:41 Last Admin: 06/06/25 19:55 Dose: 3 mg Miscellaneous (Carbohydrates For Hypoglycemia ) 15 - 30 gm PO UD PRN PRN Reason: Hypoglycemia Protocol Stop: 06/25/25 18:41 Multivitamins (Multivitamin Tab) 1 tab PO DAILY [facility] Stop: 07/07/25 08:59 Ondansetron HCl (Ondansetron Inj 2 Mg/Ml 2 Ml Vial) 4 mg IV Q6H PRN PRN Reason: Nausea Stop: 06/25/25 18:41 Oxycodone HCl (Oxycodone Hcl Ir 5 Mg Tab (Immediate Release)) 5 mg PO Q4H PRN PRN Reason: Mod-Sev Pain (Scale 4-10) Stop: 06/09/25 18:41 Last Admin: 06/05/25 23:50 Dose: 5 mg Polyethylene Glycol (Polyethylene (Miralax) 17 Gm Pack) 17 gm PO DAILY PRN PRN Reason: Constipation Stop: 06/25/25 18:41 Last Admin: 06/01/25 12:37 Dose: 17 gm Pregabalin (Pregabalin 25 Mg Cap) 25 mg PO BID [facility] Stop: 06/27/25 20:59 Last Admin: 06/06/25 19:55 Dose: 25 mg Sennosides (Senna 8.6 Mg Tab) 8.6 mg PO QAM [facility] Stop: 06/29/25 08:59 Last Admin: 06/06/25 09:10 Dose: Not Given PG Care Time/CCT Total # of Minutes Spent Total Time Spent with Patient: Total time spent is greater than 50% in coordination of care (as documented) at patient's floor/unit and/or counseling patient: Coding Level of Care Code 35207 SUB INP/OBS CARE 3/50MIN Diagnoses Preop cardiovascular exam Z01.810
[2025-06-07 07:53] LABS: ALC (manual) 4.61 K/uL (1.2-3.4); ANC (manual) 3.02 K/uL (1.4-6.5); Large Granular Lymph # (manua 3.82 K/uL; Large Granular Lymph % (manual) 48 %
[2025-06-07] MEDS: MULTIVITAMIN TAB PO SCH (08:28)
[2025-06-07] MEDS ORDERED: hydroCHLOROthiazide 25 MG TAB PO SCH (09:00)
--- NOTE | 2025-06-07 10:33 | Vascular Medicine ProgressNote ---
Date of Service June 07, 2025 Assessment & Plan (1) Peripheral vascular disease of lower extremity with ulceration: Plan: Doing well POD1 from left SFA to peroneal artery bypass with nonreversed saphenous vein. Graft clinically patent. Can get OOB to chair today. OK from my perspective to remove Padron and arterial line. Appreciate ICU involvement overnight. If responds appropriately to transfusion can move out of ICU this afternoon. Can advance diet as tolerated and begin ambulation with Physical Therapy tomorrow. Admission and Anticipated Discharge Date Admission Date: May 26, 2025 Subjective Quite night overnight. Received 1U PRBC for postop blood loss anemia. Feels well. Had no leg/foot pain overnight. Physical Exam Physical Exam: Dressing taken down. No hematoma. Incision lines clean/dry with skin glue. Triphasic peroneal and PT doppler signal in left foot. Results & Data Vital Signs (Past 12 Hours) Vital Signs Temp Pulse Resp BP Pulse Ox O2 Flow Rate 06/07/25 06:45 36.8 C 70 16 126/34 L 100 2 06/07/25 06:30 68 15 100 06/07/25 06:18 70 15 100 06/07/25 06:15 36.8 C 70 16 128/33 L 100 2 06/07/25 06:00 72 10 L 100 06/07/25 06:00 117/50 L 06/07/25 06:00 117/50 L 06/07/25 06:00 36.8 C 68 16 125/31 L 100 2 06/07/25 05:54 69 15 100 06/07/25 05:43 36.8 C 70 16 134/33 L 99 2 06/07/25 05:30 76 23 100 06/07/25 05:27 68 14 100 06/07/25 05:00 72 13 100 06/07/25 05:00 110/46 L 06/07/25 04:45 82 21 100 06/07/25 04:30 67 17 100 06/07/25 04:03 71 16 100 06/07/25 04:00 121/47 L 06/07/25 03:57 71 15 100 06/07/25 03:51 72 16 100 06/07/25 03:30 74 15 100 06/07/25 03:24 71 17 100 06/07/25 03:00 108/45 L 06/07/25 02:51 72 17 100 06/07/25 02:30 71 14 06/07/25 02:15 71 16 06/07/25 01:45 69 17 06/07/25 01:30 77 17 06/07/25 01:28 36.7 C 06/07/25 01:06 69 14 06/07/25 01:00 129/52 L 06/07/25 00:57 71 14 06/07/25 00:48 72 14 06/07/25 00:30 73 15 06/07/25 00:18 72 14 06/07/25 00:00 106/43 L 06/07/25 00:00 106/43 L 06/07/25 00:00 106/43 L 06/07/25 00:00 72 16 06/06/25 23:48 71 14 06/06/25 23:30 74 17 100 06/06/25 23:21 73 16 06/06/25 23:00 76 24 06/06/25 23:00 111/52 L 06/06/25 22:57 72 14 06/06/25 22:33 75 19 100 PG Care Time/CCT Total # of Minutes Spent Total Time Spent with Patient: Total time spent is greater than 50% in coordination of care (as documented) at patient's floor/unit and/or counseling patient: Coding Level of Care Code 04454 Post Operative Follow-Up Diagnoses Peripheral vascular disease of lower extremity with ulceration I73.9; L97.909
--- NOTE | 2025-06-07 12:19 | Hospitalist Progress Note ---
Date of Service June 07, 2025 Assessment & Plan (1) Cellulitis of left lower extremity: (2) T2DM (type 2 diabetes mellitus): (3) Diabetic neuropathy: (4) HTN (hypertension): (5) Primary hyperparathyroidism: (6) HLD (hyperlipidemia): (7) Anemia: (8) Neutropenia: Plan 84-year-old female with significant past medical history of T2DM, diabetic peripheral neuropathy, HTN, HLD, hypothyroidism, primary hyperparathyroidism, diabetic nonproliferative retinopathy, mild mitral valve stenosis, lumbar spinal stenosis admitted for multiple non healing L foot wounds with associated redness. 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 Medrano - no surgical debridement necessary, highly suspicious of charcot arthropathy consult wound nurse for treatment/follow up - Lucan w/ betadine, allow to dry, cover with optifoam, change daily MRSA swab if negative no indication for mrsa coverage given low risk Vascular Arterial duplex reviewed and consulted w/ vasc. surg. -Doing well POD1 from left SFA to peroneal artery bypass with nonreversed saphenous vein. Graft clinically patent. 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 lantus/novolog per protocol hold metformin, glimepiride #HTN chronic, stable, although BPs fluctuates continue atenolol and decrease enalapril dose 20mg--->10 mg hold HCTZ for now given hypercalc and known primary hyperparathyroidism pt previously follow endo in [place] who recommended discontinuing hctz, pt reports resuming it due to some lower ext edema #Hypercalcemia #Primary Hyperparathyroidism with hx of R superior parathyroidectomy in 2007 had follow [facility] at [place], last seen in 2019, recommend re establishing for monitoring of calcium levels avoid calcium supplements which can also be found in daily MVI #Chronic diarrhea: felt 2/2 hx of R hemicolectomy as well as last years gallbladder surgery, bowels always loose, was recently prescribe cholestyramine but didn't start yet she states some constipation now. Will observe Consult PT/OT. Can start tomorrow per Dr. Perdomo Transfer out of ICU postop later this afternoon if patient stable. #DVT ppx: SQ Lovenox FULL CODE A total of 50 minutes spent in care planning and care coordination for this patient Admission and Anticipated Discharge Date Admission Date: May 26, 2025 Subjective Chart and data reviewed. Vital signs are stable. POD #1 from left SFA to peroneal artery bypass with nonreversed saphenous vein. Graft is clinically pa tent per vascular surgery this a.m.nursing reports no overnight issues. Hemoglobin less than 7 so received 1U PRBC for postop blood loss anemia. She tells me she actually feels fairly well. No increased pain in the left lower extremity or the right lower extremity. Tolerating p.o. okay. Review of Systems Review of Systems: Constitutional- no fever; no chills Pulmonary- no cough, no wheezing, no shortness of breath Cardiac- no chest pain, no palpitations, no orthopnea, no dependent edema GI- no nausea, no vomiting, no diarrhea Physical Exam Physical Exam: General- adult elderly female seen at bedside. chronic ill appearance Eyes- PERRL, EOMI Neck- supple, no JVD, Lungs- clear to auscultation and percussion Heart- regular rhythm; Abdomen- normal bowel sounds, soft, nontender, no masses or hepatosplenomegaly Extremities- Venous stasis both legs. Dressing intact on left lower extremity. No seepage or soak through. Neuro- alert, oriented x 3; PERRL, EOMI; no gross focal deficits Skin- warm & dry Results & Data Results & Data Vital Signs (Past 12 Hours) Vital Signs Temp Pulse Resp BP Pulse Ox O2 Flow Rate 06/07/25 06:45 36.8 C 70 16 126/34 L 100 2 06/07/25 06:30 68 15 100 07/25/25 06:18 70 15 06/07/25 06:15 36.8 C 70 16 128/33 L 100 2 06/07/25 06:00 72 10 L 100 06/07/25 06:00 117/50 L 06/07/25 06:00 117/50 L 06/07/25 06:00 36.8 C 68 16 125/31 L 100 2 06/07/25 05:54 69 15 100 06/07/25 05:43 36.8 C 70 16 134/33 L 99 2 06/07/25 05:30 76 23 100 06/07/25 05:27 68 14 06/07/25 05:00 72 13 100 06/07/25 05:00 110/46 L 06/07/25 04:45 82 21 100 06/07/25 04:30 67 17 100 06/07/25 04:03 71 16 100 06/07/25 04:00 121/47 L 06/07/25 03:57 71 15 06/07/25 03:51 72 16 06/07/25 03:30 74 15 100 06/07/25 03:24 71 17 06/07/25 03:00 108/45 L 06/07/25 02:51 72 17 06/07/25 02:30 71 14 06/07/25 02:15 71 16 06/07/25 01:45 69 17 06/07/25 01:30 77 17 06/07/25 01:28 36.7 C 06/07/25 01:06 69 14 06/07/25 01:00 129/52 L 06/07/25 00:57 71 14 06/07/25 00:48 72 14 06/07/25 00:30 73 15 100 Laboratory Results Short CBC 06/06/25 06/07/25 Range/Units 18:57 04:34 WBC 9.85 7.95 (4.8-10.8) K/ul Hgb 7.5 L 6.4 L* (12.0-16.0) g/dl Hct 23.2 L 19.5 L* (37.0-47.0) % Plt Count 187 195 (130-400) K/uL BMP 06/06/25 06/07/25 18:57 04:34 Sodium 139 138 Potassium 4.2 4.1 Chloride 109 H 109 H Carbon Dioxide 23 25 BUN 17 17 Creatinine 0.72 0.67 Glucose 237 H 195 H Calcium 9.1 8.8
[2025-06-07 13:06] LABS: Hematocrit (blood only) 24.2 % (37.0-47.0); Hemoglobin 8.0 g/dl (12.0-16.0)
[2025-06-07] MEDS: MAGNESIUM SULFATE / D5W 1 GM/100 ML BAG IV SCH (14:17)
--- NOTE | 2025-06-07 14:45 | Electrocardiogram Report ---
Test Reason : Blood Pressure : */* mmHG Vent. Rate : 55 BPM Atrial Rate : 55 BPM P-R Int : 170 ms QRS Dur : 90 ms QT Int : 452 ms P-R-T Axes : 62 53 14 degrees QTcB Int : 432 ms Sinus bradycardia Otherwise normal ECG When compared with ECG of 07-May-2024 12:49, No significant change was found Confirmed by Ramón Aldridge ([id number]) on 06/07/2025 2:45:29 PM Referred By: REFERRED SELF Confirmed By: Ramón Aldridge
[2025-06-07] MEDS: INSULIN ASPART PER UNIT CHARGE SC SCH (20:54)
[2025-06-08 06:06] LABS: Hematocrit (blood only) 21.9 % (37.0-47.0); Hemoglobin 7.1 g/dl (12.0-16.0); Mean Corpuscular Hemoglobin 33.8 pg (25.0-34.0); Mean Corpuscular Volume 104.3 fL (80.0-100.0); Platelet Count 162 K/uL (130-400); RDW Standard Deviation 74.3 fL (36.4-46.3); Red Blood Count 2.10 M/uL (4.20-5.40); White Blood Count 5.24 K/ul (4.8-10.8)
[2025-06-08 06:26] LABS: Anion Gap 4.0 (3-11); Blood Urea Nitrogen 14.0 mg/dl (6-23); Calcium 9.0 mg/dl (8.6-10.3); Carbon Dioxide 26.0 mmol/L (21-32); Chloride 107.0 mmol/L (98-107); Creatinine Clr Calc Pharmacy 55.8 ml/min; Glucose 189.0 mg/dl (70-99(Fasting)); Magnesium 2.1 mg/dl (1.7-2.4); Potassium 4.2 mmol/L (3.5-5.1); Sodium 137.0 mmol/L (136-145)
--- NOTE | 2025-06-08 11:05 | Hospitalist Progress Note ---
Date of Service June 08, 2025 Assessment & Plan (1) Cellulitis of left lower extremity: (2) T2DM (type 2 diabetes mellitus): (3) Diabetic neuropathy: (4) HTN (hypertension): (5) Primary hyperparathyroidism: (6) HLD (hyperlipidemia): (7) Anemia: (8) Neutropenia: Plan 84-year-old female with significant past medical history of T2DM, diabetic peripheral neuropathy, HTN, HLD, hypothyroidism, primary hyperparathyroidism, diabetic nonproliferative retinopathy, mild mitral valve stenosis, lumbar spinal stenosis admitted for multiple non healing L foot wounds with associated redness. 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 Medrano - no surgical debridement necessary, highly suspicious of charcot arthropathy Vascular Arterial duplex reviewed and consulted w/ vasc. surg. -Doing well POD# 2 from left SFA to peroneal artery bypass with nonreversed saphenous vein. Graft clinically patent. #Anemia, chronic Pt has been anemia since March of 2024 per [facility] review, lows of 8 after acute gallbladder surgery Hgb currently 7.1<---7.8<---8.0 post transfusion. Will keep a close eye. Transfuse for hemoglobin less than 7. Will recheck hemoglobin later today. 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 lantus/novolog per protocol holding metformin, glimepiride #HTN chronic, stable, although BPs fluctuates continue atenolol and enalapril dose 20mg--->10 mg Continue to hold HCTZ for now given hypercalc and known primary hyperparathyroidism pt previously follow endo in [place] who recommended discontinuing hctz, pt reports resuming it due to some lower ext edema #Hypercalcemia #Primary Hyperparathyroidism with hx of R superior parathyroidectomy in 2007 had follow [facility] at [place], last seen in 2019, recommend re establishing for monitoring of calcium levels avoid calcium supplements which can also be found in daily MVI #Chronic diarrhea: felt 2/2 hx of R hemicolectomy as well as last years gallbladder surgery, bowels always loose, was recently prescribe cholestyramine but didn't start yet she states some constipation now. Will observe Consult PT/OT. #DVT ppx: SQ Lovenox FULL CODE Admission and Anticipated Discharge Date Admission Date: May 26, 2025 Subjective Patient seen and examined at chair side. Chart and data reviewed. Her vital signs are stable. She is tolerating p.o. She has a good appetite. She denies chest pain, shortness of breath, nausea, vomiting, headache, visual disturbance. She has minimal incisional pain at this point. She is status post 1 unit of packed RBCs Physical Exam Physical Exam: General- adult elderly female seen at chairside. Eyes- PERRL, EOMI Neck- supple, no JVD, Lungs- clear to auscultation and percussion Heart- regular rhythm; Abdomen- normal bowel sounds, soft, nontender, no masses or hepatosplenomegaly Extremities- Venous stasis both legs. Incisions on left lower extremity are intact and dry. No erythema Neuro- alert, oriented x 3; PERRL, EOMI; no gross focal deficits Skin- warm & dry Results & Data Results & Data Vital Signs (Past 12 Hours) Vital Signs Temp Pulse Pulse Pulse Resp BP BP 06/08/25 08:07 36.8 C 77 16 132/69 06/08/25 08:00 73 06/08/25 03:16 36.4 C L 80 16 145/66 H 06/07/25 23:09 36.8 C 79 16 110/60 Pulse Ox O2 Del Method 06/08/25 08:07 96 Room Air 06/08/25 08:00 06/08/25 03:16 97 Room Air 06/07/25 23:09 94 Room Air Laboratory Results Short CBC 06/07/25 06/07/25 06/08/25 Range/Units 12:50 19:22 05:32 WBC 5.24 (4.8-10.8) K/ul Hgb 8.0 L 7.8 L 7.1 L (12.0-16.0) g/dl Hct 24.2 L 21.9 L (37.0-47.0) % Plt Count 162 (130-400) K/uL [facility] 06/08/25 05:32 Sodium 137 Potassium 4.2 Chloride 107 Carbon Dioxide 26 BUN 14 Creatinine 0.73 Glucose 189 H Calcium 9.0
--- NOTE | 2025-06-08 12:24 | Vascular Medicine ProgressNote ---
Date of Service June 08, 2025 Assessment & Plan (1) Peripheral vascular disease of lower extremity with ulceration: Plan: Doing well s/p left fem-tib bypass. Can ambulate as tolerated. Would benefit from Physical Therapy eval. Antiplatelet therapy alone is all that is needed from my standpoint. Admission and Anticipated Discharge Date Admission Date: May 26, 2025 Subjective No reported problems. Sitting up eating lunch. Comfortable. Physical Exam Physical Exam: Strong graft pulse in between incisions at the level of the knee. Foot is warm. Results & Data Vital Signs (Past 12 Hours) Vital Signs Temp Pulse Pulse Pulse Resp BP BP 06/08/25 11:09 36.4 C L 90 17 101/62 06/08/25 08:07 36.8 C 77 16 132/69 06/08/25 08:00 73 06/08/25 03:16 36.4 C L 80 16 145/66 H Pulse Ox O2 Del Method 06/08/25 11:09 90 Room Air 06/08/25 08:07 96 Room Air 06/08/25 08:00 06/08/25 03:16 97 Room Air PG Care Time/CCT Total # of Minutes Spent Total Time Spent with Patient: Total time spent is greater than 50% in coordination of care (as documented) at patient's floor/unit and/or counseling patient: Coding Level of Care Code 76465 Post Operative Follow-Up Diagnoses Peripheral vascular disease of lower extremity with ulceration I73.9; L97.909
[2025-06-09 06:05] LABS: Hematocrit (blood only) 21.7 % (37.0-47.0); Hemoglobin 7.0 g/dl (12.0-16.0); Mean Corpuscular Hemoglobin 34.7 pg (25.0-34.0); Mean Corpuscular Volume 107.4 fL (80.0-100.0); Platelet Count 183 K/uL (130-400); RDW Standard Deviation 71.1 fL (36.4-46.3); Red Blood Count 2.02 M/uL (4.20-5.40); White Blood Count 5.92 K/ul (4.8-10.8)
[2025-06-09 06:25] LABS: Anion Gap 3.0 (3-11); Blood Urea Nitrogen 18.0 mg/dl (6-23); Calcium 9.3 mg/dl (8.6-10.3); Carbon Dioxide 29.0 mmol/L (21-32); Chloride 105.0 mmol/L (98-107); Creatinine Clr Calc Pharmacy 56.6 ml/min; Glucose 171.0 mg/dl (70-99(Fasting)); Potassium 5.2 mmol/L (3.5-5.1); Sodium 137.0 mmol/L (136-145)
[2025-06-09] MEDS ORDERED: SODIUM CHLORIDE 0.9% 100 ML IV PRN (08:05)
--- NOTE | 2025-06-09 13:12 | Hospitalist Progress Note ---
Date of Service June 09, 2025 Assessment & Plan (1) Cellulitis of left lower extremity: (2) T2DM (type 2 diabetes mellitus): (3) Diabetic neuropathy: (4) HTN (hypertension): (5) Primary hyperparathyroidism: (6) HLD (hyperlipidemia): (7) Anemia: (8) Neutropenia: Plan 84-year-old female with significant past medical history of T2DM, diabetic peripheral neuropathy, HTN, HLD, hypothyroidism, primary hyperparathyroidism, diabetic nonproliferative retinopathy, mild mitral valve stenosis, lumbar spinal stenosis admitted for multiple non healing L foot wounds with associated redness. 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 Medrano - no surgical debridement necessary, highly suspicious of charcot arthropathy Vascular Arterial duplex reviewed and consulted w/ vasc. surg. -Doing well POD# 3 from left SFA to peroneal artery bypass with nonreversed saphenous vein. Graft clinically patent. #Anemia, chronic Pt has been anemia since March of 2024 per [facility] review, lows of 8 after acute gallbladder surgery Hgb currently 7.0 from 7.6. Transfuse 1 Unit of pRBCs today. Will recheck hemoglobin later today. anemia panel including iron profile, b12, folate unremarkable retic ct, [id number], tsh/t4, LDH reviewed peripheral smear reviewed: will likely need hematology referral as outpt, pt reports chronic fatigue, denies s/sx of bleeding, last c scope was 4 years ago, pt continues to receive them due to strong family hx #Neutropenia pt with absolute neutrophil count low, present since 05/2024 post gallbladder surgery Stable at present pt likely to need hematology referral as outpt if reoccurs #T2DM with neuropathy, retinopathy controlled for age, last a1c 7.7 in January, A1c this admission 8.1. lantus/novolog per protocol holding metformin, glimepiride #HTN chronic, stable, although BPs fluctuates continue atenolol and enalapril dose 20mg--->10 mg Continue to hold HCTZ for now given hypercalc and known primary h yperparathyroidism pt previously follow endo in [place] who recommended discontinuing hctz, pt reports resuming it due to some lower ext edema #Hypercalcemia #Primary Hyperparathyroidism with hx of R superior parathyroidectomy in 2007 had follow [facility] at [place], last seen in 2019, recommend re establishing for monitoring of calcium levels avoid calcium supplements which can also be found in daily MVI #Chronic diarrhea: felt 2/2 hx of R hemicolectomy as well as last years gallbladder surgery, bowels always loose, was recently prescribe cholestyramine but didn't start yet she states some constipation now. Will observe Consult PT/OT. Anticipate discharge home with home health when medically stable. #DVT ppx: SQ Lovenox FULL CODE Admission and Anticipated Discharge Date Admission Date: May 26, 2025 Subjective Chart, data and vital signs reviewed. Vital signs are stable. Hemoglobin has dropped further down to 7. Her wounds look good. There is a tiny amount of seepage at the very top part of the most proximal part of the incision. Discussed case with vascular surgery. Patient is doing well otherwise. No overnight events. There is no melena or hematochezia. No hematuria. She is voiding without difficulty. She denies nausea vomiting, chest pain or shortness of breath. Her appetite is good. She complains of some constipation. Physical Exam Physical Exam: General- adult elderly female seen at chairside. Eyes- PERRL, EOMI Neck- supple, no JVD, Lungs- clear to auscultation and percussion Heart- regular rhythm; Abdomen- normal bowel sounds, soft, nontender, no masses or hepatosplenomegaly Extremities- Venous stasis both legs. Incisions on left lower extremity are intact and dry this a.m. No erythema Neuro- alert, oriented x 3; PERRL, EOMI; no gross focal deficits Skin- warm & dry Results & Data Results & Data Vital Signs (Past 12 Hours) Vital Signs Temp Pulse Pulse Pulse Resp BP BP 06/09/25 11:28 36.7 C 90 18 06/09/25 08:45 06/09/25 07:07 60 06/09/25 07:00 36.7 C 64 16 136/52 L 06/09/25 03:04 36.4 C L 61 16 127/69 BP Pulse Ox O2 Del Method 06/09/25 11:28 111/55 L 91 Room Air 06/09/25 08:45 Room Air 06/09/25 07:07 06/09/25 07:00 96 Room Air 06/09/25 03:04 96 Room Air Laboratory Results Short CBC 06/08/25 06/09/25 Range/Units 14:32 05:22 WBC 5.92 (4.8-10.8) K/ul Hgb 7.6 L 7.0 L (12.0-16.0) g/dl Hct 21.7 L (37.0-47.0) % Plt Count 183 (130-400) K/uL BMP 06/09/25 05:22 Sodium 137 Potassium 5.2 H D Chloride 105 Carbon Dioxide 29 BUN 18 Creatinine 0.72 Glucose 171 H Calcium 9.3
[2025-06-10 05:49] LABS: Hematocrit (blood only) 24.2 % (37.0-47.0); Hemoglobin 8.0 g/dl (12.0-16.0); Mean Corpuscular Hemoglobin 33.5 pg (25.0-34.0); Mean Corpuscular Volume 101.3 fL (80.0-100.0); Platelet Count 176 K/uL (130-400); RDW Standard Deviation 79.8 fL (36.4-46.3); Red Blood Count 2.39 M/uL (4.20-5.40); White Blood Count 5.18 K/ul (4.8-10.8)
[2025-06-10 06:04] LABS: Anion Gap 4.0 (3-11); Blood Urea Nitrogen 22.0 mg/dl (6-23); Calcium 9.3 mg/dl (8.6-10.3); Carbon Dioxide 27.0 mmol/L (21-32); Chloride 106.0 mmol/L (98-107); Creatinine Clr Calc Pharmacy 49.1 ml/min; Glucose 195.0 mg/dl (70-99(Fasting)); Potassium 4.2 mmol/L (3.5-5.1); Sodium 137.0 mmol/L (136-145)
--- NOTE | 2025-06-10 08:19 | Vascular Medicine ProgressNote ---
Date of Service June 10, 2025 Assessment & Plan (1) Peripheral vascular disease of lower extremity with ulceration: Plan: Proceed with physical therapy, no weight bearing restrictions. Continue to manage lymph leak with dry dressing for now. Admission and Anticipated Discharge Date Admission Date: May 26, 2025 Subjective Doing well. Pain controlled. Physical Exam Physical Exam: mild appropriate postoperative swelling. Small to moderate amount of lymphatic drainage from proximal portion of thigh incision. Strong graft pulse. Left foot warm. Results & Data Vital Signs (Past 12 Hours) Vital Signs Temp Pulse Pulse Pulse Resp BP BP 06/10/25 07:13 36.8 C 61 18 06/10/25 04:53 36.5 C 59 L 20 117/64 06/10/25 00:00 36.9 C 68 18 128/64 06/09/25 22:00 73 06/09/25 20:19 37.0 C 68 18 135/57 L BP Pulse Ox O2 Del Method 06/10/25 07:13 119/62 97 Room Air 06/10/25 04:53 96 Room Air 06/10/25 00:00 98 Room Air 06/09/25 22:00 06/09/25 20:19 96 Room Air PG Care Time/CCT Total # of Minutes Spent Total Time Spent with Patient: Total time spent is greater than 50% in coordination of care (as documented) at patient's floor/unit and/or counseling patient: Coding Level of Care Code 91392 Post Operative Follow-Up Diagnoses Peripheral vascular disease of lower extremity with ulceration I73.9; L97.909
--- NOTE | 2025-06-10 12:17 | Hospitalist Progress Note ---
Date of Service June 10, 2025 Assessment & Plan (1) Cellulitis of left lower extremity: (2) T2DM (type 2 diabetes mellitus): (3) Diabetic neuropathy: (4) HTN (hypertension): (5) Primary hyperparathyroidism: (6) HLD (hyperlipidemia): (7) Anemia: (8) Neutropenia: Plan Ms. 84-year-old female with significant past medical history of T2DM, diabetic peripheral neuropathy, HTN, HLD, hypothyroidism, primary hyperparathyroidism, diabetic nonproliferative retinopathy, mild mitral valve stenosis, lumbar spinal stenosis admitted for multiple non healing L foot wounds with associated redness. Patient evaluated for peripheral vascular disease and underwent an angiogram on 06/03 and ultimately a left femoral bypass on 06/06. Patient completed course of antibiotics for cellulitis for wounds. Patient cleared to participate with PT per Vascular. Patient likely medically stable in 1-2 days for dispo contingent on PT/OT reports. 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 Merdano - no surgical debridement necessary, highly suspicious of charcot arthropathy Vascular Arterial duplex consistent with PVD s/p left SFA to peroneal artery bypass with nonreversed saphenous vein--pulses present Reviewed Dr. Perdomo's documentation from 06/10: clear for PT, no weight bearing restrictions Glue applied to proximal incision site, CTM #Acute on chronic anemia baseline between mid -, s/p 1 UPRBC anemia panel including iron profile, b12, folate unremarkable retic ct, [id number], tsh/t4, LDH reviewed by prior hospitalist consider OP eval with Hematology for anemia #Neutropenia pt with absolute neutrophil count low, present since 05/2024 post gallbladder surgery Stable at present #T2DM with neuropathy, retinopathy controlled for age, last a1c 7.7 in January, A1c this admission 8.1. lantus/novolog per protocol holding metformin, glimepiride #HTN chronic, stable, although BPs fluctuates continue atenolol and enalapril dose 20mg--->10 mg Continue to hold HCTZ for now given hypercalc and known primary hyperparathyroidism pt previously follow endo in [place] who recommended discontinuing hctz, pt reports resuming it due to some lower ext edema #Hypercalcemia #Primary Hyperparathyroidism with hx of R superior parathyroidectomy in 2007 had follow [facility] at [place], last seen in 2019, recommend re establishing for monitoring of calcium levels avoid calcium supplements which can also be found in daily MVI #Chronic diarrhea: felt 2/2 hx of R hemicolectomy as well as last years gallbladder surgery, bowels always loose, was recently prescribe cholestyramine but didn't start yet she states some constipation now. Will observe Consult PT/OT. Anticipate discharge home with home health when medically stable. PT/OT pending at this time #DVT ppx: SQ Lovenox FULL CODE Admission and Anticipated Discharge Date Admission Date: May 26, 2025 Subjective Evaluated in bedside chair Reports feeling a bit down this am as her incision began to split from the proximal incision site of the LLE She reports she is moving around better with some discomfort, but otherwise doing well--denies fevers, chills, chest pain, palitations she reports movement of bowels this am and appetite doing fine overall Physical Exam Constitutional: WD/WN, vitals as above Respiratory: normal respiratory effort, lungs clear to auscultation Cardiovascular: RRR, no murmur, no edema Skin: LLE incisions from graft evaluated s/p gluing from Dr. Perdomo No further drainage noted Results & Data Results & Data Vital Signs (Past 12 Hours) Vital Signs Temp Pulse Pulse Resp BP BP BP 06/10/25 11:18 36.5 C 66 18 136/51 L 06/10/25 09:16 78 150/68 H 06/10/25 07:13 36.8 C 61 18 119/62 06/10/25 04:53 36.5 C 59 L 20 117/64 Pulse Ox O2 Del Method 06/10/25 11:18 97 Room Air 06/10/25 09:16 06/10/25 07:13 97 Room Air 06/10/25 04:53 96 Room Air Laboratory Results Short CBC 06/09/25 06/10/25 Range/Units 17:01 05:28 WBC 5.18 (4.8-10.8) K/ul Hgb 8.1 L 8.0 L (12.0-16.0) g/dl Hct 24.2 L (37.0-47.0) % Plt Count 176 (130-400) K/uL BMP 06/10/25 05:28 Sodium 137 Potassium 4.2 Chloride 106 Carbon Dioxide 27 BUN 22 Creatinine 0.83 Glucose 195 H Calcium 9.3 Medications Administered Home Medications Medication Instructions Recorded Confirmed Last Taken aspirin 81 mg tablet,delayed 81 mg PO DAILY 05/26/25 05/26/25 05/26/25 release atenolol 100 mg tablet 100 mg PO DAILY 05/26/25 05/26/25 05/26/25 atorvastatin 40 mg tablet 40 mg PO HS 05/26/25 05/26/25 05/25/25 benazepril 40 mg tablet 40 mg PO DAILY 05/26/25 05/26/25 05/26/25 cholestyramine (with sugar) 4 gram 1 ea PO BID 05/26/25 05/26/25 Unknown powder for susp in a packet glimepiride 4 mg tablet 4 mg PO DAILYBB 05/26/25 05/26/25 05/26/25 hydrochlorothiazide 25 mg tablet 25 mg PO DAILY 05/26/25 05/26/25 05/26/25 levothyroxine 75 mcg tablet 75 mcg PO DAILYBB 05/26/25 05/26/25 05/26/25 metformin 500 mg tablet,extended 1,000 mg PO BID 05/26/25 05/26/25 05/26/25 08:00 release 24 hr multivitamin 1 tab PO DAILY 05/26/25 05/26/25 05/26/25 vit C 250 mg-vit E 90 mg-zinc 40 1 tab PO BID 05/26/25 05/26/25 05/26/25 08:00 mg-copper 1 [id number] capsule (PreserVision AREDS-2) Active Medications Generic Name Dose Route Start Last Admin Trade Name Freq PRN Reason Stop Dose Admin Acetaminophen 650 mg 05/26/25 18:42 06/09/25 23:26 Acetaminophen 325 Mg Tab PO 06/25/25 18:41 650 mg Q4H PRN Administration Pain or Fever Aspirin 81 mg 05/27/25 09:00 06/10/25 08:49 Aspirin 81 Mg Ectab PO 06/26/25 08:59 81 mg DAILY VAL Administration Atenolol 100 mg 05/27/25 09:00 06/10/25 09:17 Atenolol 50 Mg Tablet PO 06/26/25 08:59 100 mg DAILY VAL Administration Atorvastatin Calcium 40 mg 05/26/25 21:00 06/09/25 20:51 Atorvastatin 40 Mg Tab PO 06/25/25 20:59 40 mg HS VAL Administration Cholestyramine Resin 4 gm 06/06/25 22:00 06/10/25 12:03 Cholestyramine Light 4 Gm Pkt PO 07/06/25 21:59 Not Given BID@1000,2200 VAL Duloxetine HCl 20 mg 05/27/25 19:50 06/09/25 20:50 Duloxetine Hcl 20 Mg Cap PO 06/26/25 19:49 20 mg HS VAL Administration Enalapril Maleate 10 mg 05/29/25 09:00 06/10/25 08:48 Enalapril Maleate 10 Mg Tab PO 06/28/25 08:59 10 mg DAILY VAL Administration Enoxaparin Sodium 40 mg 05/26/25 21:00 06/09/25 20:50 Enoxaparin Inj 40 Mg/0.4 Ml Syr SQ 06/25/25 20:59 40 mg HS VAL Administration Phenylephrine HCl 25 mg in 250 mls @ 0 mls/hr 06/07/25 00:25 06/08/25 20:41 Phenylephrine/Nss IV 07/07/25 00:24 Infused .Q0M [facility] Titration Protocol 0 MCG/KG/MIN Insulin Aspart 0 units 06/07/25 21:00 06/10/25 08:59 Insulin Aspart Per Unit Charge SC 07/07/25 20:59 4 units ACHS VAL Administration Insulin Glargine 0 - 6 units 05/26/25 21:00 06/10/25 08:58 Lantus Per Unit Charge SQ 06/25/25 20:59 6 units BID VAL Administration Lactobacillus Acidophilus 1,250 mg 05/27/25 09:00 06/10/25 08:48 Advanced Probiotic 625 Mg Capsule PO 06/26/25 08:59 1,250 mg DAILY VAL Administration Levothyroxine Sodium 75 mcg 05/27/25 06:30 06/10/25 06:42 Levothyroxine Sodium 75 Mcg Tablet PO 06/26/25 06:29 75 mcg DAILYBB VAL Administration Melatonin 3 mg 05/26/25 18:42 06/09/25 20:50 Melatonin 3 Mg Tab PO 06/25/25 18:41 3 mg HS PRN Administration Sleep Multivitamins 1 tab 06/07/25 09:00 06/10/25 08:48 Multivitamin Tab PO 07/07/25 08:59 1 tab DAILY VAL Administration Polyethylene Glycol 17 gm 05/26/25 18:42 06/01/25 12:37 Polyethylene (Miralax) 17 Gm Pack PO 06/25/25 18:41 17 gm DAILY PRN Administration Constipation Pregabalin 25 mg 05/28/25 21:00 06/10/25 08:58 Pregabalin 25 Mg Cap PO 06/27/25 20:59 25 mg BID VAL Administration Sennosides 8.6 mg 05/30/25 09:00 06/10/25 08:58 Senna 8.6 Mg Tab PO 06/29/25 08:59 8.6 mg QAM VAL Administration
[2025-06-11 06:15] LABS: Hematocrit (blood only) 24.0 % (37.0-47.0); Hemoglobin 7.8 g/dl (12.0-16.0); Mean Corpuscular Hemoglobin 33.2 pg (25.0-34.0); Mean Corpuscular Volume 102.1 fL (80.0-100.0); Platelet Count 203 K/uL (130-400); RDW Standard Deviation 78.0 fL (36.4-46.3); Red Blood Count 2.35 M/uL (4.20-5.40); White Blood Count 4.55 K/ul (4.8-10.8)
[2025-06-11 06:31] LABS: Anion Gap 4.0 (3-11); Blood Urea Nitrogen 26.0 mg/dl (6-23); Calcium 9.7 mg/dl (8.6-10.3); Carbon Dioxide 28.0 mmol/L (21-32); Chloride 108.0 mmol/L (98-107); Creatinine Clr Calc Pharmacy 54.3 ml/min; Glucose 171.0 mg/dl (70-99(Fasting)); Magnesium 1.7 mg/dl (1.7-2.4); Potassium 4.2 mmol/L (3.5-5.1); Sodium 140.0 mmol/L (136-145)
--- NOTE | 2025-06-11 07:19 | Hospitalist Progress Note ---
Date of Service June 11, 2025 Assessment & Plan (1) Cellulitis of left lower extremity: (2) T2DM (type 2 diabetes mellitus): (3) Diabetic neuropathy: (4) HTN (hypertension): (5) Primary hyperparathyroidism: (6) HLD (hyperlipidemia): (7) Anemia: (8) Neutropenia: Plan Ms. 84-year-old female with significant past medical history of T2DM, diabetic peripheral neuropathy, HTN, HLD, hypothyroidism, primary hyperparathyroidism, diabetic nonproliferative retinopathy, mild mitral valve stenosis, lumbar spinal stenosis admitted for multiple non healing L foot wounds with associated redness. Patient evaluated for peripheral vascular disease and underwent an angiogram on 06/03 and ultimately a left femoral bypass on 06/06. Patient completed course of antibiotics for cellulitis for wounds. Patient cleared to participate with PT per Vascular. Patient requesting discharge with home health services. Doppler ordered for LLE and was negative for DVT. Discussed case with Dr. Perdomo who feels patient is ready for discharge. Assuming stable labs and no overnight events, patient to discharge in am around 10am. 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 Medrano - no surgical debridement necessary, highly suspicious of charcot arthropathy Vascular Arterial duplex consistent with PVD s/p left SFA to peroneal artery bypass with nonreversed saphenous vein--pulses present Reviewed Dr. Perdomo's documentation from 06/10: clear for PT, no weight bearing restrictions Glue applied to proximal incision site, CTM doppler negative for DVT Plan for OP vascular follow up #Acute on chronic anemia baseline between mid -, s/p 1 UPRBC anemia panel including DORA noted with ferritin of 48.[address], [id number], tsh/t4, LDH reviewed by prior hospitalist consider OP eval with Hematology for anemia s/p IV venofer #Neutropenia pt with absolute neutrophil count low, present since 05/2024 post gallbladder surgery, mild, can establish with op heme #T2DM with neuropathy, retinopathy controlled for age, last a1c 7.7 in January, A1c this admission 8.1. lantus/novolog per protocol holding metformin, glimepiride #HTN chronic, stable, although BPs fluctuates continue atenolol and enalapril dose 20mg--->10 mg Continue to hold HCTZ for now given hypercalc and known primary hyperparathyroidism pt previously follow endo in [place] who recommended discontinuing hctz, pt reports resuming it due to some lower ext edema #Hypercalcemia #Primary Hyperparathyroidism with hx of R superior parathyroidectomy in 2007 had follow [facility] at [place], last seen in 2019, recommend re establishing for monitoring of calcium levels avoid calcium supplements which can also be found in daily MVI #Chronic diarrhea: felt 2/2 hx of R hemicolectomy as well as last years gallbladder surgery, bowels always loose, was recently prescribe cholestyramine but didn't start yet she states some constipation now. Will observe, stable for now Consult PT/OT. Anticipate discharge home with home health when medically stable. PT/OT pending at this time #DVT ppx: SQ Lovenox FULL CODE Admission and Anticipated Discharge Date Admission Date: May 26, 2025 Subjective NAEO Reports feeling much better than day prior and even using ice to help with swelling with noted improvement Discussed discharge today, however, need 1 more day to ensure support and all at home is ready denies any fevers chills or uncontrolled discomfort Physical Exam Constitutional: WD/WN, vitals as above Respiratory: normal respiratory effort, lungs clear to auscultation Cardiovascular: RRR, no murmur, no edema Skin: noted improvement in swelling around right groin, reduced swelling overall of LLE Results & Data Results & Data Vital Signs (Past 12 Hours) Vital Signs Temp Pulse Pulse Resp BP Pulse Ox O2 Del Method 06/11/25 04:23 36.5 C 83 18 128/61 97 Room Air 06/10/25 22:55 36.8 C 63 16 118/50 L 91 Room Air 06/10/25 21:48 63 06/10/25 20:12 36.8 C 65 16 162/67 H 98 Room Air Laboratory Results Short CBC 06/11/25 Range/Units 05:43 WBC 4.55 L (4.8-10.8) K/ul Hgb 7.8 L (12.0-16.0) g/dl Hct 24.0 L (37.0-47.0) % Plt Count 203 (130-400) K/uL BMP 06/11/25 05:43 Sodium 140 Potassium 4.2 Chloride 108 H Carbon Dioxide 28 BUN 26 H Creatinine 0.75 Glucose 171 H Calcium 9.7 Medications Administered Home Medications Medication Instructions Recorded Confirmed Last Taken aspirin 81 mg tablet,delayed 81 mg PO DAILY 05/26/25 05/26/25 05/26/25 release atenolol 100 mg tablet 100 mg PO DAILY 05/26/25 05/26/25 05/26/25 atorvastatin 40 mg tablet 40 mg PO HS 05/26/25 05/26/25 05/25/25 benazepril 40 mg tablet 40 mg PO DAILY 05/26/25 05/26/25 05/26/25 cholestyramine (with sugar) 4 gram 1 ea PO BID 05/26/25 05/26/25 Unknown powder for susp in a packet glimepiride 4 mg tablet 4 mg PO DAILYBB 05/26/25 05/26/25 05/26/25 hydrochlorothiazide 25 mg tablet 25 mg PO DAILY 05/26/25 05/26/25 05/26/25 levothyroxine 75 mcg tablet 75 mcg PO DAILYBB 05/26/25 05/26/25 05/26/25 metformin 500 mg tablet,extended 1,000 mg PO BID 05/26/25 05/26/25 05/26/25 08:00 release 24 hr multivitamin 1 tab PO DAILY 05/26/25 05/26/25 05/26/25 vit C 250 mg-vit E 90 mg-zinc 40 1 tab PO BID 05/26/25 05/26/25 05/26/25 08:00 mg-copper 1 [id number] capsule (PreserVision AREDS-2) aspirin 81 mg capsule 81 mg PO DAILY #30 caps 06/11/25 Unknown duloxetine 20 mg capsule,delayed 20 mg PO HS 30 days #30 caps 06/11/25 Unknown release pregabalin 25 mg capsule 25 mg PO BID 30 days #60 caps 06/11/25 Unknown Active Medications Generic Name Dose Route Start Last Admin Trade Name Freq PRN Reason Stop Dose Admin Acetaminophen 650 mg 05/26/25 18:42 06/11/25 06:31 Acetaminophen 325 Mg Tab PO 06/25/25 18:41 650 mg Q4H PRN Administration Pain or Fever Aspirin 81 mg 05/27/25 09:00 06/11/25 08:53 Aspirin 81 Mg Ectab PO 06/26/25 08:59 81 mg DAILY VAL Administration Atenolol 100 mg 05/27/25 09:00 06/11/25 08:54 Atenolol 50 Mg Tablet PO 06/26/25 08:59 100 mg DAILY VAL Administration Atorvastatin Calcium 40 mg 05/26/25 21:00 06/10/25 21:16 Atorvastatin 40 Mg Tab PO 06/25/25 20:59 40 mg HS VAL Administration Cholestyramine Resin 4 gm 06/06/25 22:00 06/11/25 10:05 Cholestyramine Light 4 Gm Pkt PO 07/06/25 21:59 Not Given BID@1000,2200 VAL Duloxetine HCl 20 mg 05/27/25 19:50 06/10/25 21:16 Duloxetine Hcl 20 Mg Cap PO 06/26/25 19:49 20 mg HS VAL Administration Enalapril Maleate 10 mg 05/29/25 09:00 06/11/25 08:52 Enalapril Maleate 10 Mg Tab PO 06/28/25 08:59 10 mg DAILY VAL Administration Enoxaparin Sodium 40 mg 05/26/25 21:00 06/10/25 21:17 Enoxaparin Inj 40 Mg/0.4 Ml Syr SQ 06/25/25 20:59 40 mg HS VAL Administration Phenylephrine HCl 25 mg in 250 mls @ 0 mls/hr 06/07/25 00:25 06/08/25 20:41 Phenylephrine/Nss IV 07/07/25 00:24 Infused .Q0M [facility] Titration Protocol 0 MCG/KG/MIN Insulin Aspart 0 units 06/07/25 21:00 06/11/25 12:56 Insulin Aspart Per Unit Charge SC 07/07/25 20:59 5 units ACHS VAL Administration Insulin Glargine 0 - 6 units 05/26/25 21:00 06/11/25 08:39 Lantus Per Unit Charge SQ 06/25/25 20:59 6 units BID VAL Administration Lactobacillus Acidophilus 1,250 mg 05/27/25 09:00 06/11/25 08:52 Advanced Probiotic 625 Mg Capsule PO 06/26/25 08:59 1,250 mg DAILY VAL Administration Levothyroxine Sodium 75 mcg 05/27/25 06:30 06/11/25 06:28 Levothyroxine Sodium 75 Mcg Tablet PO 06/26/25 06:29 75 mcg DAILYBB VAL Administration Melatonin 3 mg 05/26/25 18:42 06/09/25 20:50 Melatonin 3 Mg Tab PO 06/25/25 18:41 3 mg HS PRN Administration Sleep Multivitamins 1 tab 06/07/25 09:00 06/11/25 08:53 Multivitamin Tab PO 07/07/25 08:59 1 tab DAILY VAL Administration Polyethylene Glycol 17 gm 05/26/25 18:42 06/01/25 12:37 Polyethylene (Miralax) 17 Gm Pack PO 06/25/25 18:41 17 gm DAILY PRN Administration Constipation Pregabalin 25 mg 05/28/25 21:00 06/11/25 08:39 Pregabalin 25 Mg Cap PO 06/27/25 20:59 25 mg BID VAL Administration Sennosides 8.6 mg 05/30/25 09:00 06/11/25 08:39 Senna 8.6 Mg Tab PO 06/29/25 08:59 8.6 mg QAM VAL Administration
--- NOTE | 2025-06-11 08:39 | Vascular Medicine ProgressNote ---
Date of Service June 11, 2025 Assessment & Plan (1) Peripheral vascular disease of lower extremity with ulceration: Plan: Given the left leg swelling would obtain LLE venous duplex to rule out DVT. If that is negative, she can be discharged from my standpoint. My office will arrange followup in 3-4 weeks. Admission and Anticipated Discharge Date Admission Date: May 26, 2025 Subjective No further drainage from wound. Feels well. Ambulating with assistance. Appreciate PT input. Physical Exam Physical Exam: She has mild swelling which is most likely consistent with postop. Graft clinically patent with excellent graft pulse at knee. Results & Data Vital Signs (Past 12 Hours) Vital Signs Temp Pulse Pulse Resp BP BP Pulse Ox 06/11/25 07:22 36.7 C 59 L 18 133/51 L 95 06/11/25 04:23 36.5 C 83 18 128/61 97 06/10/25 22:55 36.8 C 63 16 118/50 L 91 06/10/25 21:48 63 O2 Del Method 06/11/25 07:22 Room Air 06/11/25 04:23 Room Air 06/10/25 22:55 Room Air 06/10/25 21:48 PG Care Time/CCT Total # of Minutes Spent Total Time Spent with Patient: Total time spent is greater than 50% in coordination of care (as documented) at patient's floor/unit and/or counseling patient: Coding Level of Care Code 36333 Post Operative Follow-Up Diagnoses Peripheral vascular disease of lower extremity with ulceration I73.9; L97.909
[2025-06-11] MEDS: IRON SUCROSE 300 MG in SODIUM CHLORIDE 0.9% 250 ML IV ONE (08:40)
[2025-06-11] MEDS: MAGNESIUM SULFATE / D5W 1 GM/100 ML BAG IV SCH (10:25)
--- NOTE | 2025-06-11 15:59 | Ultrasound Report ---
LEFT LOWER EXTREMITY VENOUS DOPPLER HISTORY: r/o dvt COMPARISON STUDY: 06/04/2025 FINDINGS: No evidence of DVT seen in the left lower extremity. IMPRESSION: No DVT seen. . ACT 112: Negative or not required by law. Electronically signed by: Vicente Schafer M.D. 06/11/2025 3:58 PM
[2025-06-12 06:14] LABS: Hematocrit (blood only) 26.1 % (37.0-47.0); Hemoglobin 8.3 g/dl (12.0-16.0); Mean Corpuscular Hemoglobin 32.8 pg (25.0-34.0); Mean Corpuscular Volume 103.2 fL (80.0-100.0); Platelet Count 231 K/uL (130-400); RDW Standard Deviation 76.4 fL (36.4-46.3); Red Blood Count 2.53 M/uL (4.20-5.40); White Blood Count 4.80 K/ul (4.8-10.8)
[2025-06-12 06:33] LABS: Anion Gap 5.0 (3-11); Blood Urea Nitrogen 28.0 mg/dl (6-23); Calcium 9.7 mg/dl (8.6-10.3); Carbon Dioxide 27.0 mmol/L (21-32); Chloride 107.0 mmol/L (98-107); Creatinine Clr Calc Pharmacy 52.2 ml/min; Glucose 149.0 mg/dl (70-99(Fasting)); Potassium 4.0 mmol/L (3.5-5.1); Sodium 139.0 mmol/L (136-145)
[2025-06-12 07:13] LABS: ALC (manual) 3.98 K/uL (1.2-3.4); ANC (manual) 0.53 K/uL (1.4-6.5); Anisocytosis Present; Large Granular Lymph # (manua 2.35 K/uL; Large Granular Lymph % (manual) 49 %; Ovalocytes 1+; Polychromasia 2+; Smudge Cells Present
[2025-06-12 07:27] VITALS: TEMP 97.5
[2025-06-12] MEDS: FAMOTIDINE 20 MG TAB PO PRN (08:39)
[2025-06-12 10:56] VITALS: BP 151/67; PULSE 69; RESP 17; O2SAT 98
--- NOTE | 2025-06-14 16:07 | Discharge Summary ---
Date of Service June 12, 2025 Admission HPI Per Admitting Provider This is an 84-year-old female with significant past medical history of T2DM, diabetic peripheral neuropathy, HTN, HLD, hypothyroidism, primary hyperparathyroidism, diabetic nonproliferative retinopathy, mild mitral valve stenosis, lumbar spinal stenosis who presents to ED secondary to L foot wounds for several weeks. History obtained from patient and at bedside. Patient reports having multiple wounds To her left foot, some which have healed, others which remain present. She reports having significant pain to her left foot and leg to the point she is unable to sleep at night. She does have known underlying neuropathy for which she has tried gabapentin before. She does not like the way most medications make her feel and therefore she tries to avoid it. She has been using [id number] Tylenol with minimal relief. Over the last several days she has noticed increased redness to her bilateral legs and feet, left greater than right. Her son is in sports medicine and encouraged her to be seen in the ED. In ED patient remained hemodynamically stable. She has multiple wounds to left ankle and digits approximately 4 in different stages of healing. She remained hemodynamically stable without signs of sepsis. She is neutropenic with an absolute neutrophil count of 0.8 1 K/uL. she remains anemic with a hemoglobin and hematocrit of 9.6 and 29.2. She does have mildly elevated calcium at 10.7 with an ionized calcium of 1.44. She had bilateral ankle x-rays which were normal. Blood and wound cultures were obtained. Foot and ankle x- rays were obtained and unremarkable. In ED she received IV Vanco, Flagyl and cefepime. Of significant pt had prolonged stay at [facility] May of 2024 2/2 acute cholecystitis with c/f choledocholithiasis. She underwent an ERCP 05/08/24 and required a lap converted to open cholecystectomy on 05/10 with oversewing of a serosal tear of the stomach. She had post op complication with ileus. Admission Exam Per Admitting Provider constitutional: WD/WN, vitals as above, NAD, sitting up in bed, pleasant, conversing easily Head: Normocephalic, Atraumatic Eyes: conjunctivae normal, anicteric sclerae ENMT: external ear and nose normal, oropharynx normal Neck: trachea midline, no thyromegaly normal visual inspection Respiratory: normal respiratory effort, lungs clear to auscultation, no wheeze, rales, rhonchi. Normal insp/exp effort, no accessory muscle use Cardiovascular: RRR, no murmur, b/l diminished lower ext DP and PT Pulses, +1, LLE erythematous, not warm, erythema resolves with significant leg elevation, evidence of multiple ulcers, L medial ankle/,L3rd distal toe, developing blister to lateral 4th toe, blood bulla to distal 5th toe and lateral ankle wound. Vessels: no JVD or carotid bruit Chest: normal inspection of chest Abdomen: normal bowel sounds, soft, nontender, no hepatosplenomegaly Musculoskeletal: no cyanosis or clubbing, extremities motor strength 5/5 Skin: no rashes, warm and dry normal turgor Neurologic: PERRL, EOMI, accommodation nl, no face palsy, no dysarthria CN's II-XI intact bilaterally and moves all extremities Psychiatric: A+Ox3, euthymic affect Principal Diagnosis #LLE Cellulitis 2/2 nonhealing L diabetic foot wounds, POA #Peripheral vascular disease s/p letft femoral-tibial bypass on 06/06/[address] Perdomo #Diabetic neuropathy, 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 Eyes- PERRL, EOMI Neck- supple, no JVD, Lungs- clear to auscultation and percussion Heart- regular rhythm; Abdomen- normal bowel sounds, soft, nontender, no masses or hepatosplenomegaly Extremities- Venous stasis both legs. Incisions on left lower extremity are intact and dry this a.m. No erythema Neuro- alert, oriented x 3; PERRL, EOMI; no gross focal deficits Skin- warm & dry Discharge Data Allergies Allergy/AdvReac Type Severity Reaction Status Date / Time No Known Allergies Allergy Unknown Verified 05/26/25 16:00 Consultations 05/26/25 15:43 ED Decision to Admit Stat 05/26/25 16:54 Consult Podiatry Routine 05/30/25 08:27 Consult Pain Management Routine 05/31/25 09:59 Consult Vascular Surgery Routine Procedures Performed Operation Date: 06/06/25 09:40 Actual Procedures p Left Femoral Tibial Bypass(Left) - Akira Perdomo MD Ordered Studies 05/26/25 16:50 US arterial duplex LE BI Routine 05/31/25 10:07 US Aorta Doppler [US duplex aorta/iliacs/IVC ltd] Routine 06/03/25 09:28 EV angio LE LT Routine US EV guide vascular access Routine 06/04/25 08:57 US leg [US venous mapping LE BI] Routine 06/06/25 09:24 EV angio LE LT Routine 06/11/25 10:59 US venous doppler LE LT Routine Hospital Course (1) Cellulitis of left lower extremity: (2) T2DM (type 2 diabetes mellitus): (3) Diabetic neuropathy: (4) HTN (hypertension): (5) Primary hyperparathyroidism: (6) HLD (hyperlipidemia): (7) Anemia: (8) Neutropenia: Plan Ms. 84-year-old female with significant past medical history of T2DM, diabetic peripheral neuropathy, HTN, HLD, hypothyroidism, primary hyperparathyroidism, diabetic nonproliferative retinopathy, mild mitral valve stenosis, lumbar spinal stenosis admitted for multiple non healing L foot wounds with associated redn ess. Patient evaluated for peripheral vascular disease and underwent an angiogram on 06/03 and ultimately a left femoral bypass on 06/06. Patient completed course of antibiotics for cellulitis for wounds. Patient cleared to participate with PT per Vascular. Patient requesting discharge with home health services. Doppler ordered for LLE and was negative for DVT. Discussed case with Dr. Perdomo who feels patient is ready for discharge. Assuming stable labs and no overnight events, patient to discharge in am around 10am. 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 Medrano - no surgical debridement necessary, highly suspicious of charcot arthropathy Vascular Arterial duplex consistent with PVD s/p left SFA to peroneal artery bypass with nonreversed saphenous vein--pulses present Reviewed Dr. Perdomo's documentation from 06/10: clear for PT, no weight bearing restrictions Glue applied to proximal incision site, doppler negative for DVT Plan for OP vascular follow up #Acute on chronic anemia baseline between mid 7-8, s/p 1 UPRBC anemia panel including DORA noted with ferritin of 48.[address], [id number], tsh/t4, LDH reviewed by prior hospitalist consider OP eval with Hematology for anemia s/p IV venofer #Neutropenia pt with absolute neutrophil count low, present since 05/2024 post gallbladder surgery, mild, can establish with op heme #T2DM with neuropathy, retinopathy controlled for age, last a1c 7.7 in January, A1c this admission 8.1. lantus/novolog per protocol holding metformin, glimepiride #HTN chronic, stable, although BPs fluctuates continue atenolol and enalapril dose 20mg--->10 mg Continue to hold HCTZ for now given hypercalc and known primary hyperparathyroidism pt previously follow endo in [place] who recommended discontinuing hctz, pt reports resuming it due to some lower ext edema #Hypercalcemia #Primary Hyperparathyroidism with hx of R superior parathyroidectomy in 2007 had follow [facility] at [place], last seen in 2019, recommend re establishing for monitoring of calcium levels avoid calcium supplements which can also be found in daily MVI #Chronic diarrhea: felt 2/2 hx of R hemicolectomy as well as last years gallbladder surgery, bowels always loose, was recently prescribe cholestyramine but didn't start yet she states some constipation now. Will observe, stable for now Discharged home with home health. follow up with PCP and vascular surgery Yeah I had the please note the above document was generated using voice recognition software. It may contain grammatical, syntax or spelling errors. Any formal questions or concerns about the content, text or information contained within the body of this dictation should be directly addressed to the provider for clarification Total Time Total Time Spent Total Time Spent (In Minutes): 45 Total Time Includes: Examination of the Patient, Discharge Planning, Medication Reconciliation, Communication With Other Providers and Other Discharge Plan Discharge Items Patient Disposition: Home - Home Health Services Reason For Visit: L DIABETIC FOOT WOUND Discharge Diagnosis: #LLE Cellulitis 2/2 nonhealing L diabetic foot wounds, POA #Peripheral vascular disease s/p letft femoral-tibial bypass on 06/06/[address] Perdomo #Diabetic neuropathy, 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 You were treated with antibiotics. You were noted to have poor blood flow consider with peripheral vascular disease. You underwent an angiogram on 06/03 and ultimately a left femoral bypass on 06/06. An ultrasound of your leg was done and rule out any clot. You will continue an aspirin 81 mg daily. You will follow up with Vascular as directed by Dr. Perdomo. Please discontinue Hydrochlorothiazide. You were also noted to have anemia and received a unit of blood and a unit of iron. Follow up with your PCP for further management of your low blood count. Keep walking! Walking helps reduce swelling and helps your incisionheal. Dont stand or sit with your feet down for long. When you sit,raise your feet as high as you comfortably can to help with swelling. Check your incision every day for signs of infection such as swelling, redness, warmth, or drainage. Dont bathe or soak in a tub or go swimming until your incisions are well healed and as directed by Dr. Perdomo. You can shower to keep your incisions clean. Just make sure you dry them well afterward. Contact your health care provider right away if you have: A fever of100.4F (38C) or higher Signs of infection (redness, swelling, or warmth at the incision site) More drainage from your incision Changes in color,temperature,feeling,or movement in either foot. Increasing pain or numbness inyour foot or leg. Leg swelling that doesn't get better overnight. Chest pain or trouble breathing. Addtl Senior Javascript Engineer Provider Instructions: DIABETES RECOMMENDATIONS: 1.) Aim to maintain blood sugar levels below 180 (ideally below 150 before meals) to support healing. Notify your provider of blood sugar levels frequently above 180 or below 90. 2.) If home blood sugar levels are frequently above 180, need increase in diabetes medications. Your provider may consider increasing your Glimepiride. Another option would be to discontinue the Glimepiride and add a once daily/24 hour insulin. 3.) Continue regular/balanced meals + protein to support healing. Pending Studies at Discharge: No Stand-Alone Forms: My [facility], Smoking Cessation Medications and DC Order Prescriptions: New duloxetine 20 mg Capsule,Delayed Release(Dr/Ec) 20 mg PO HS 30 Days Qty: 30 0RF pregabalin 25 mg Capsule 25 mg PO BID 30 Days Qty: 60 0RF aspirin 81 mg capsule 81 mg PO DAILY Qty: 30 0RF Continued multivitamin Tablet 1 tab PO DAILY atorvastatin 40 mg tablet 40 mg PO HS atenolol 100 mg tablet 100 mg PO DAILY levothyroxine 75 mcg tablet 75 mcg PO DAILYBB glimepiride 4 mg tablet 4 mg PO DAILYBB benazepril 40 mg tablet 40 mg PO DAILY metformin 500 mg tablet extended release 24 hr 1,000 mg PO BID PreserVision AREDS-2 250-90-40-1 mg Capsule 1 tab PO BID Discontinued hydrochlorothiazide 25 mg tablet 25 mg PO DAILY Discharge Orders: Discharge Order (Routine); Ordered 06/12/25 Ordered By: Anuj Collazo/Other Patient Handouts: Nutrition for Wound Healing, Managing Type 2 Diabetes Admission Data Admit Date/Time: 05/26/25 16:32 Attending Provider: Anuj Olguin Admit Provider: Kevin Liu Primary Care Provider: Holly Spence Other Providers: Kamari Medrano; Kimberly Tobar; Akria Perdomo; Ariel Bradford; Nadeem Rudolph; Rony Blair; Dank Lin; Forrest Sterling Other Interventions: Discharge Summary Assessment (RN) Last Done: 06/12/25 12:18
== END 2025-06-12 12:10 | disposition home health service (06) | DRG 253 ==
LOC: ED 14:13 → 2W 16:32 → SUATTDRO 16:32 → 2W 18:15 → 2S 06-03 17:56 → 1E 06-06 17:55 → 4W 06-07 18:29
DX: Z79.890 Hormone replacement therapy; Z79.84 Long term (current) use of oral hypoglycemic drugs; I34.0 Nonrheumatic mitral (valve) insufficiency; Z79.82 Long term (current) use of aspirin; D62 Acute posthemorrhagic anemia; E11.42 Type 2 diabetes mellitus with diabetic polyneuropathy; E21.0 Primary hyperparathyroidism; E11.3299 Type 2 diabetes mellitus with mild nonproliferative diabetic retinopathy without macular edema, unspecified eye; K52.9 Noninfective gastroenteritis and colitis, unspecified; E78.5 Hyperlipidemia, unspecified; L97.529 Non-pressure chronic ulcer of other part of left foot with unspecified severity; E11.610 Type 2 diabetes mellitus with diabetic neuropathic arthropathy; L97.329 Non-pressure chronic ulcer of left ankle with unspecified severity; I10 Essential (primary) hypertension; E11.621 Type 2 diabetes mellitus with foot ulcer; Z90.49 Acquired absence of other specified parts of digestive tract; L03.116 Cellulitis of left lower limb; D70.9 Neutropenia, unspecified; Z98.1 Arthrodesis status; Z87.891 Personal history of nicotine dependence; E11.51 Type 2 diabetes mellitus with diabetic peripheral angiopathy without gangrene; Z79.899 Other long term (current) drug therapy; E03.9 Hypothyroidism, unspecified; M48.062 Spinal stenosis, lumbar region with neurogenic claudication